=== PATIENT | female | born 1940 | race Caucasian/White ===

== ENCOUNTER 2017-08-23 09:33 | Emergency (ER) | payer MEDICARE, BC ==
[2017-08-23 09:37] VITALS: BP 130/61; TEMP 97.1
[2017-08-23] MEDS ORDERED: ABILIFY20 MG PO (10:47)
[2017-08-23] MEDS ORDERED: SINEMET 25/101 UDTAB PO (10:47)
[2017-08-23] MEDS ORDERED: JARDIANCE10 (10:48)
[2017-08-23] MEDS ORDERED: NEURONTIN100 MG/CAP PO (10:48)
[2017-08-23] MEDS ORDERED: PLAVIX 75MG TAB75 MG PO (10:48)
[2017-08-23] MEDS ORDERED: GLUCOPHAGE1000 MG PO (10:48)
[2017-08-23] MEDS ORDERED: ELDEPRYL 5MG5 MG/CAP PO (10:49)
[2017-08-23] MEDS ORDERED: LIPITOR 40MG TA40 MG PO (10:49)
[2017-08-23] MEDS ORDERED: K-DUR 10 MEQ T10 MEQ PO (10:49)
[2017-08-23] MEDS ORDERED: TOPAMAX200 MG PO (10:50)
[2017-08-23] MEDS ORDERED: SYNTHROID 0.0.025 MG PO (10:50)
[2017-08-23] MEDS ORDERED: LASIX 40MG TABL40 MG PO (10:50)
[2017-08-23 11:33] VITALS: PULSE 62
== END 2017-08-23 11:33 | disposition home or self-care (01) ==
LOC: COL.ER 09:33
DX: S83.91XA Sprain of unspecified site of right knee, initial encounter (principal); S43.401A Unspecified sprain of right shoulder joint, initial encounter; E11.9 Type 2 diabetes mellitus without complications; F31.9 Bipolar disorder, unspecified; G20 Parkinson's disease; E05.00 Thyrotoxicosis with diffuse goiter without thyrotoxic crisis or storm; Z87.891 Personal history of nicotine dependence; Z79.02 Long term (current) use of antithrombotics/antiplatelets; V48.4XXA Person boarding or alighting a car injured in noncollision transport accident, initial encounter; X50.0XXA Overexertion from strenuous movement or load, initial encounter; Y92.410 Unspecified street and highway as the place of occurrence of the external cause; Z79.84 Long term (current) use of oral hypoglycemic drugs

== ENCOUNTER 2019-01-29 02:56 | Emergency (ER) | payer MEDICARE, BC ==
[~2019-01-29] VITALS: Ht 147.3 cm; Wt 79.5 kg
[~2019-01-29 02:56] MED LIST: ABILIFY20 MG PO; ELDEPRYL 5MG5 MG/CAP PO; GLUCOPHAGE1000 MG PO; JARDIANCE10; K-DUR 10 MEQ T10 MEQ PO; LASIX 40MG TABL40 MG PO; LIPITOR 40MG TA40 MG PO; NEURONTIN100 MG/CAP PO; PLAVIX 75MG TAB75 MG PO; SINEMET 25/101 UDTAB PO; SYNTHROID 0.0.025 MG PO; TOPAMAX200 MG PO
[2019-01-29 02:57] VITALS: TEMP 97
[2019-01-29 03:59] LABS: BASO % 0.4 % (0.0-2.0); EOS # 0.2 (0.0-0.7); EOS % 4.4 % (0-4.0); GRAN # 2.6 (1.4-6.5); GRAN % 51.4 % (42.2-75.2); LYMPH # 1.7 (1.2-3.4); LYMPH % 34.6 % (20.0-51.0); MEAN CELL VOLUME 92 fl (80.0-100.0); MEAN CORPUSCULAR HEMOGLOBIN 30 pg (27.0-31.0); MEAN CORPUSCULAR HGB CONC 32 g/dl (33.0-37.0); MEAN PLATELET VOLUME 10.1 fl (7.4-10.4); MONO # 0.4 (0.1-0.6); MONO % 8.8 % (1.7-9.3); PLATELET COUNT 220 K/mm3 (130-400); RED BLOOD COUNT 4.01 M/mm3 (4.10-5.30); REDCELL DISTRIBUTION WIDTH-CV 12.8 % (11.5-14.5)
[2019-01-29 04:17] LABS: ALBUMIN 3.7 gm/dL (3.5-5.0); BILIRUBIN,TOTAL 0.2 mg/dL (0.0-1.0); CALCIUM 8.7 mg/dL (8.4-10.2); CREATININE, serum 1.21 (0.52-1.25); POTASSIUM 3.8 mmol/L (3.4-5.0); TOTAL PROTEIN 6.3 gm/dL (6.4-8.2)
[2019-01-29 04:29] LABS: C-REACTIVE PROTEIN 0.6 mg/dL (0.0-0.9)
[2019-01-29 04:35] LABS: ERYTHROCYTE SEDIMENTATION RATE 13 mm/hr (0-30)
[2019-01-29] MEDS ORDERED: WALKER MC (05:42)
[2019-01-29 05:45] VITALS: BP 112/78
[2019-01-29 06:55] VITALS: PULSE 87
== END 2019-01-29 06:55 | disposition home or self-care (01) ==
LOC: COL.ER 02:56
PROVIDERS: Emergency Medicine
DX: M25.552 Pain in left hip (principal); E11.9 Type 2 diabetes mellitus without complications; E78.5 Hyperlipidemia, unspecified; I10 Essential (primary) hypertension; F31.9 Bipolar disorder, unspecified; E03.9 Hypothyroidism, unspecified; G20 Parkinson's disease; Z79.02 Long term (current) use of antithrombotics/antiplatelets; Z79.84 Long term (current) use of oral hypoglycemic drugs; Z86.73 Personal history of transient ischemic attack (TIA), and cerebral infarction without residual deficits; Z87.891 Personal history of nicotine dependence; X50.1XXA Overexertion from prolonged static or awkward postures, initial encounter

== ENCOUNTER 2019-02-04 12:30 | Emergency (ER) | payer MEDICARE, BC ==
[~2019-02-04] VITALS: Ht 147.3 cm; Wt 79.5 kg
[~2019-02-04 12:30] MED LIST changes: +WALKER MC
[2019-02-04 12:43] VITALS: BP 144/96; TEMP 97.4
[2019-02-04 13:48] LABS: BASO % 0.2 % (0.0-2.0); EOS # 0.1 (0.0-0.7); EOS % 1.3 % (0-4.0); GRAN # 6.4 (1.4-6.5); GRAN % 77.4 % (42.2-75.2); HEMOGLOBIN 11.7 g/dl (12.5-16.0); LYMPH # 1.1 (1.2-3.4); LYMPH % 13.5 % (20.0-51.0); MEAN CELL VOLUME 91 fl (80.0-100.0); MEAN CORPUSCULAR HEMOGLOBIN 30 pg (27.0-31.0); MEAN CORPUSCULAR HGB CONC 33 g/dl (33.0-37.0); MONO # 0.6 (0.1-0.6); MONO % 7.2 % (1.7-9.3); PLATELET COUNT 186 K/mm3 (130-400); RED BLOOD COUNT 3.94 M/mm3 (4.10-5.30)
[2019-02-04 14:03] LABS: ALBUMIN 3.9 gm/dL (3.5-5.0); BILIRUBIN,TOTAL 0.4 mg/dL (0.0-1.0); C-REACTIVE PROTEIN 2.9 mg/dL (0.0-0.9); CALCIUM 8.9 mg/dL (8.4-10.2); CREATININE, serum 0.84 (0.52-1.25); POTASSIUM 4.1 mmol/L (3.4-5.0); TOTAL PROTEIN 6.7 gm/dL (6.4-8.2)
[2019-02-04] MEDS ORDERED: DOXYCYCLINE 10100 MG PO (15:05)
[2019-02-04] MEDS ORDERED: AMOXICILLIN 8751 TAB PO (15:05)
[2019-02-04 18:11] VITALS: PULSE 87
== END 2019-02-04 18:13 | disposition home or self-care (01) ==
LOC: COL.ER 12:30
PROVIDERS: Emergency Medicine
DX: L02.612 Cutaneous abscess of left foot (principal); G20 Parkinson's disease; E78.5 Hyperlipidemia, unspecified; E11.9 Type 2 diabetes mellitus without complications; F31.9 Bipolar disorder, unspecified; Z79.02 Long term (current) use of antithrombotics/antiplatelets; Z79.84 Long term (current) use of oral hypoglycemic drugs; Z23 Encounter for immunization
CPT/HCPCS: J1815

== ENCOUNTER 2019-02-10 06:00 | Emergency (ER) | payer MEDICARE, BC ==
[~2019-02-10] VITALS: Ht 147.3 cm; Wt 83.2 kg
[~2019-02-10 06:00] MED LIST changes: +AMOXICILLIN 8751 TAB PO; +DOXYCYCLINE 10100 MG PO
[2019-02-10 06:34] LABS: BASO % 0.3 % (0.0-2.0); EOS # 0.2 (0.0-0.7); EOS % 3.5 % (0-4.0); GRAN # 4.5 (1.4-6.5); GRAN % 65.9 % (42.2-75.2); HEMOGLOBIN 11.5 g/dl (12.5-16.0); LYMPH # 1.5 (1.2-3.4); LYMPH % 21.5 % (20.0-51.0); MEAN CELL VOLUME 91 fl (80.0-100.0); MEAN CORPUSCULAR HEMOGLOBIN 30 pg (27.0-31.0); MEAN CORPUSCULAR HGB CONC 33 g/dl (33.0-37.0); MEAN PLATELET VOLUME 9.9 fl (7.4-10.4); MONO # 0.6 (0.1-0.6); MONO % 8.5 % (1.7-9.3); PLATELET COUNT 209 K/mm3 (130-400); RED BLOOD COUNT 3.88 M/mm3 (4.10-5.30)
[2019-02-10 06:37] LABS: HEMATOCRIT 35.1 % (37.0-47.0)
[2019-02-10] MEDS ORDERED: GLUCOPHAGE1000 MG PO (06:42)
[2019-02-10] MEDS ORDERED: LASIX 40MG TABL40 MG PO (06:42)
[2019-02-10] MEDS ORDERED: K-TAB10 PO (06:53)
[2019-02-10 07:05] LABS: ALBUMIN 3.7 gm/dL (3.5-5.0); BILIRUBIN,TOTAL 0.5 mg/dL (0.0-1.0); CALCIUM 8.9 mg/dL (8.4-10.2); CREATININE, serum 0.91 (0.52-1.25); POTASSIUM 3.8 mmol/L (3.4-5.0); TOTAL PROTEIN 6.4 gm/dL (6.4-8.2)
[2019-02-10 09:30] VITALS: BP 106/68; PULSE 88; TEMP 98.2
== END 2019-02-10 09:30 | disposition home or self-care (01) ==
LOC: COL.ER 06:00
PROVIDERS: Emergency Medicine
DX: L02.612 Cutaneous abscess of left foot (principal); E11.9 Type 2 diabetes mellitus without complications; I10 Essential (primary) hypertension; F31.9 Bipolar disorder, unspecified; G20 Parkinson's disease; Z79.02 Long term (current) use of antithrombotics/antiplatelets; Z86.73 Personal history of transient ischemic attack (TIA), and cerebral infarction without residual deficits; Z79.84 Long term (current) use of oral hypoglycemic drugs
CPT/HCPCS: J1940

== ENCOUNTER 2019-02-20 09:15 | Inpatient (IN) | payer MEDICARE, BC, OTHER ==
[~2019-02-20] VITALS: Ht 147.3 cm; Wt 85.9 kg
[~2019-02-20 09:15] MED LIST changes: +K-TAB10 PO
[2019-02-20 10:00] LABS: BASO % 0.2 % (0.0-2.0); EOS # 0.1 (0.0-0.7); EOS % 2.7 % (0-4.0); GRAN # 3.6 (1.4-6.5); GRAN % 68.4 % (42.2-75.2); HEMOGLOBIN 11.3 g/dl (12.5-16.0); LYMPH # 1.1 (1.2-3.4); LYMPH % 20.8 % (20.0-51.0); MEAN CELL VOLUME 93 fl (80.0-100.0); MEAN CORPUSCULAR HEMOGLOBIN 30 pg (27.0-31.0); MEAN CORPUSCULAR HGB CONC 33 g/dl (33.0-37.0); MEAN PLATELET VOLUME 10.7 fl (7.4-10.4); MONO # 0.4 (0.1-0.6); MONO % 7.5 % (1.7-9.3); PLATELET COUNT 200 K/mm3 (130-400); RED BLOOD COUNT 3.76 M/mm3 (4.10-5.30); REDCELL DISTRIBUTION WIDTH-CV 12.5 % (11.5-14.5)
[2019-02-20 10:02] LABS: HEMATOCRIT 34.8 % (37.0-47.0)
[2019-02-20 10:10] LABS: ALANINE AMINOTRANSFERASE 11 U/L (9-52); ALBUMIN 3.2 gm/dL (3.5-5.0); ALKALINE PHOSPHATASE 138 U/L (50-136); ANION GAP 7 mmol/L (7-16); AST,SGOT 18 U/L (15-37); BILIRUBIN,TOTAL 0.2 mg/dL (0.0-1.0); BLOOD UREA NITROGEN 41 mg/dL (7-17); CALCIUM 8.7 mg/dL (8.4-10.2); CARBON DIOXIDE 25 mmol/L (22-30); CHLORIDE 103 mmol/L (98-107); CREATININE, serum 1.44 (0.52-1.25); LIPASE 227 U/L (23-300); MAGNESIUM 2.1 mg/dL (1.6-2.3); POTASSIUM 4.1 mmol/L (3.4-5.0); SODIUM 134 mmol/L (137-145); TOTAL PROTEIN 5.7 gm/dL (6.4-8.2)
[2019-02-20 10:16] LABS: GLUCOSE 571 mg/dL (74-106)
[2019-02-20 10:21] LABS: TROPONIN-I 0.012 ng/mL (0.000-0.035)
[2019-02-20 10:24] LABS: ACETONE,SERUM NEGATIVE
[2019-02-20 10:36] LABS: COLLECTION METHOD CLEAN CATCH
[2019-02-20 10:53] LABS: PH 7 (5-8); SQUAMOUS EPITHELIAL 0-2 /hpf; URINE APPEARANCE Clear; URINE BACTERIA None Seen /hpf; URINE BILIRUBIN Negative (NEGATIVE); URINE BLOOD Negative (NEGATIVE); URINE COLOR Straw; URINE GLUCOSE 3+ (NEGATIVE); URINE KETONE Negative (NEGATIVE); URINE LEUKOCYTE ESTERASE Negative (NEGATIVE); URINE NITRATE Negative (NEGATIVE); URINE PROTEIN(semi-quant) Negative (NEGATIVE); URINE RBC 0-2 /hpf; URINE UROBILINOGEN Negative (NEGATIVE)
[2019-02-20 11:55] LABS: ARTERIAL BLD GAS O2 SATURATION 94.9 % (92-100); ARTERIAL BLD GAS TCO2 CT 20.2; ARTERIAL BLOOD GAS HCO3 19.1 meq/L (22-26); ARTERIAL BLOOD GAS PCO2 36.2 mmHg (35-45); ARTERIAL BLOOD GAS PO2 78.1 mmHg (80-100); ARTERIAL BLOOD GAS pH 7.34 (7.35-7.45)
--- NOTE | 2019-02-20 13:27 | NUR ---
gaming worker met with patient and spoke with son, Mehran #[phone], and met with Mehran's girlfriend, Yeimi Carlita #[phone] to discuss home situation. Patient was moved to [place] by children about 1 month ago as she needed more care. Patient has called EMS multiple times to help her as she has fallen in her apartment. Patient states she does not utilize any outside services and struggles with having enough money to pay for food and medications. Patient states she lost several bottle of metformin. Patient has an appointmnent with Dr Baker on 03/02/19 to establish as a primary care provider. Son states they are all in agreement that patient requires a higher level of care, possibly assisted living. Worker provided copies of advance directives and Yeimi will discuss with family and patient to make decisions and complete documents with patient. Worker arranged for Catarino, financial counselor, to meet with patient and Yeimi to complete a Medicaid application this date. Physical therapy evaluated patient and patient will be admitted to the hospital. Worker spoke with Sylvia at [facility] and requested she evaluate patient for possible admission. Worker discussed options for skilled care as well. Worker collaborated with physician regarding the above information.
[2019-02-20 13:38] VITALS: BP 136/49; PULSE 99; TEMP 97.6
--- NOTE | 2019-02-20 13:41 | NUR ---
Pt up to Room 307. ASHKAN Mccallum in to complete initial.
--- NOTE | 2019-02-20 14:18 | NUR ---
Hospitalist aware of patient arrival to room, in to visit w/ patient at this time.
--- NOTE | 2019-02-20 15:58 | NUR ---
Pt admission, med rec, allergies, and pharmacy completed. Pt is A&O, 1 assist w/ walker in room. Breathing is even and unlabored, denies SOB. Denies dizziness at this time. Lung sounds clear, heart RRR. Radial pulses strong bilaterally. 2+ edema BLE. Bowel sounds present. Pt has redness/irritation on coccyx, Lt great toe erythema, BLE venous stasis, denies pain or tenderness in calf. Denies chest pain, numbness or tingling, palpitations, N/V/D. Tolerating diet well. LFA IV w/ NS @125 ml/hr running w/ no complications. No other concerns voiced at this time. Call light within reach. POC discussed w/ patient and family member.
[2019-02-20 17:46] VITALS: BP 137/60; PULSE 90; TEMP 98.1
--- NOTE | 2019-02-20 18:35 | NUR ---
Pt BS 374, Novolog administered per MAR sliding scale. pt sitting in bed eating dinner at this time. No other concerns voiced at this time. VORB from Hospitalist to decrease fluid rate to 75 ml/hr.
[2019-02-20 19:59] VITALS: BP 130/67; PULSE 88; TEMP 98.4
--- NOTE | 2019-02-20 20:00 | NUR ---
Bedside report with SALLY Silva. Pt does not have any complaints. Assessment complete. Vitals WNL. Call light within reach. Pt phone on bedside table. No further concerns at this time.
[2019-02-20 23:18] VITALS: BP 137/52; PULSE 90; TEMP 98.2
[2019-02-21 04:13] VITALS: BP 103/43; BP 123/61; PULSE 68; TEMP 97.8
[2019-02-21 06:06] LABS: BASO % 0.1 % (0.0-2.0); EOS # 0.1 (0.0-0.7); EOS % 0.9 % (0-4.0); GRAN # 5.2 (1.4-6.5); GRAN % 77.3 % (42.2-75.2); HEMOGLOBIN 10.6 g/dl (12.5-16.0); LYMPH # 1.1 (1.2-3.4); LYMPH % 15.8 % (20.0-51.0); MEAN CELL VOLUME 92 fl (80.0-100.0); MEAN CORPUSCULAR HEMOGLOBIN 30 pg (27.0-31.0); MEAN CORPUSCULAR HGB CONC 32 g/dl (33.0-37.0); MEAN PLATELET VOLUME 10.6 fl (7.4-10.4); MONO # 0.4 (0.1-0.6); MONO % 5.6 % (1.7-9.3); PLATELET COUNT 207 K/mm3 (130-400); RED BLOOD COUNT 3.58 M/mm3 (4.10-5.30); REDCELL DISTRIBUTION WIDTH-CV 12.7 % (11.5-14.5)
[2019-02-21 06:13] LABS: HEMATOCRIT 32.9 % (37.0-47.0)
[2019-02-21 06:15] LABS: ALBUMIN 2.9 gm/dL (3.5-5.0); BILIRUBIN,TOTAL 0.2 mg/dL (0.0-1.0); CALCIUM 8.3 mg/dL (8.4-10.2); CREATININE, serum 0.97 (0.52-1.25); POTASSIUM 4.1 mmol/L (3.4-5.0); TOTAL PROTEIN 5.4 gm/dL (6.4-8.2)
[2019-02-21 09:41] VITALS: BP 147/54; PULSE 82; TEMP 98.3
--- NOTE | 2019-02-21 11:07 | NUR ---
Pt assessment completed and charted. Pt laying in bed, assisted to bathroom, w/ walker. Pt has steady gait. Pt A&O, denies pain, dizziness, SOB, N/V/D, chest pain. BS have lowered. LFA IV flushes w/ no complications. Fluids dc'd. Pt tolerating food and liquids well. Pt on room air. Radial pulses strong bilaterally. BLE venous stasis. No other concerns voiced at this time. Call light within reach.
[2019-02-21 12:00] VITALS: BP 143/59; PULSE 93; TEMP 97.9
--- NOTE | 2019-02-21 13:35 | NUR ---
Pt doing well this afternoon, denies pain at this time. BS 304, SSI administered per JUN. Pt assisted to bathroom w/ walker. No other concerns voiced at this time.
[2019-02-21 17:15] VITALS: BP 133/60; PULSE 85; TEMP 98.9
--- NOTE | 2019-02-21 17:34 | NUR ---
Uneventful day, Pt administered SSI per MAR as needed per BS checks. Pt had large, hard BM, first in at least a week. No further needs expressed at this time.
[2019-02-21 20:20] VITALS: BP 138/72; PULSE 84; TEMP 97.8
--- NOTE | 2019-02-21 20:36 | NUR ---
Received report from SALLY Silva. Pt resting in bed upon arrival. Pt is eating dinner, but unsatisfied with it. Assessment complete. Pt VS WNL. No further concerns. Call light and phone within reach. Pt calls to use restroom, Bed alarm in place.
[2019-02-21 23:32] VITALS: BP 139/54; PULSE 95; TEMP 98.2
[2019-02-22 05:50] VITALS: BP 154/70; PULSE 92; TEMP 98
[2019-02-22 06:09] LABS: BASO % 0.1 % (0.0-2.0); EOS # 0.2 (0.0-0.7); EOS % 2.2 % (0-4.0); GRAN % 73.5 % (42.2-75.2); HEMOGLOBIN 11.8 g/dl (12.5-16.0); LYMPH # 1.2 (1.2-3.4); LYMPH % 17.6 % (20.0-51.0); MEAN CELL VOLUME 93 fl (80.0-100.0); MEAN CORPUSCULAR HEMOGLOBIN 30 pg (27.0-31.0); MEAN CORPUSCULAR HGB CONC 32 g/dl (33.0-37.0); MEAN PLATELET VOLUME 10.5 fl (7.4-10.4); MONO # 0.4 (0.1-0.6); MONO % 6.3 % (1.7-9.3); PLATELET COUNT 212 K/mm3 (130-400); RED BLOOD COUNT 3.96 M/mm3 (4.10-5.30); REDCELL DISTRIBUTION WIDTH-CV 12.8 % (11.5-14.5)
[2019-02-22 06:14] LABS: CALCIUM 8.6 mg/dL (8.4-10.2); CREATININE, serum 0.89 (0.52-1.25); POTASSIUM 4.2 mmol/L (3.4-5.0)
[2019-02-22 06:21] LABS: HEMATOCRIT 36.8 % (37.0-47.0)
[2019-02-22 08:08] VITALS: BP 175/66; PULSE 87; TEMP 97.3
--- NOTE | 2019-02-22 08:37 | NUR ---
Pt called for assistance to bathroom, assist X1 w/ walker. Assessment completed. Morning medications administered per JUN. Pt A&O, lung sounds clear, heart RRR, bowel sounds present. Pt rating pain at 8/10, states she didn't sleep well, pain is located in neck. Requested pain medication overnight, offered tylenol, refused, states she can only take ibuprofren. Will notify hospitalist this morning about pain medication. BLE 1+, venous stasis present. BP elevated this morning, will contact hospitalist about POC. No other concerns voiced at this time.
--- NOTE | 2019-02-22 08:46 | NUR ---
Pt up walking with therapy, using walker and standby assist with therapist, gait steady.
[2019-02-22 11:14] VITALS: BP 147/76; PULSE 97; TEMP 98.5
[2019-02-22 15:56] VITALS: BP 156/53; PULSE 91; TEMP 97.5
--- NOTE | 2019-02-22 17:15 | NUR ---
Pt sitting in chair eating dinner. Bedside report given by SALLY Silva. Pt assessment complete. VS WNL. Pt talking about [facility], and being able to go there sometime soon. Pt returned to bed before RN left room. Call light and personal phone within reach. No further concerns at this time.
[2019-02-22 19:53] VITALS: BP 149/52; PULSE 92; TEMP 98.5
[2019-02-22 22:58] VITALS: BP 137/71; PULSE 91; TEMP 97.4
--- NOTE | 2019-02-23 01:31 | NUR ---
PT IS HAVING AN UNEVENTFUL NIGHT. FINDING IT DIFFICULT TO SLEEP. WORRIED ABOUT THE COMING WEEK.
[2019-02-23 03:53] VITALS: BP 140/53; PULSE 87; TEMP 98.7
[2019-02-23 06:00] LABS: BASO % 0.4 % (0.0-2.0); EOS # 0.2 (0.0-0.7); EOS % 3.5 % (0-4.0); GRAN # 3.6 (1.4-6.5); GRAN % 64.7 % (42.2-75.2); HEMOGLOBIN 11.2 g/dl (12.5-16.0); LYMPH # 1.3 (1.2-3.4); LYMPH % 23.5 % (20.0-51.0); MEAN CELL VOLUME 91 fl (80.0-100.0); MEAN CORPUSCULAR HEMOGLOBIN 30 pg (27.0-31.0); MEAN CORPUSCULAR HGB CONC 33 g/dl (33.0-37.0); MEAN PLATELET VOLUME 10.5 fl (7.4-10.4); MONO # 0.4 (0.1-0.6); MONO % 7.5 % (1.7-9.3); PLATELET COUNT 195 K/mm3 (130-400); RED BLOOD COUNT 3.72 M/mm3 (4.10-5.30); REDCELL DISTRIBUTION WIDTH-CV 12.7 % (11.5-14.5)
[2019-02-23 06:23] LABS: CALCIUM 8.6 mg/dL (8.4-10.2); CREATININE, serum 1.03 (0.52-1.25); POTASSIUM 4.1 mmol/L (3.4-5.0)
--- NOTE | 2019-02-23 06:29 | NUR ---
Pt concerned about her care. Assured her the BARREL MARKER was at the glucometer and not a phone. Became agitated during toileting stating that her legs were wet when they were not. Cleaned up pt to ensure that she felt clean. Pt is steady and stable while ambulating. No other concerns. Call light within reach.
--- NOTE | 2019-02-23 07:26 | NUR ---
Report given to SALLY Brantley. Pt laying in bed, and pleasant during bedside report. [facility] consulted and pt is agreeable. No further concerns.
[2019-02-23 07:57] VITALS: BP 132/77; PULSE 94; TEMP 98.3
--- NOTE | 2019-02-23 08:50 | NUR ---
Pt assessment complete. Pt sitting up in chair upon entry, pt is A/O x4. Her breathing is even and unlabored on RA. Pt denies SOB. No pain reported. Pt reports swelling to BLE, reports she has not been getting her lasix. Pt denies N/V, ate breakfast without issues. Pt refusing to let staff place heparin in her abdomen, she reports last time she recieved "lasix in her belly she had a stroke". She absolutely refuses to have anything put in her abdomen. Explained to the patient this is to help prevent a stroke, she said "put it somewhere else or I'm going without". Pt reports she is ready to leave the facility or go to rehab. Refuses to have her bed changed this morning. No needs at this time. Call light within reach.
[2019-02-23 11:11] VITALS: BP 118/62; PULSE 86; TEMP 98.2
--- NOTE | 2019-02-23 14:44 | NUR ---
C Engineer attended clinical rounds with the team. It was discussed with patient that [facility] cannot accept her referral as she is too high functioning. Hospitalist discussed with patient option for fpc facility placement upon discharge and patient was in agreeance. SW met with patient to complete patient choice form. Patient selected [facility] as first preference, [facility] as second preference, and provided signature. SW faxed referrals to both [facility] and [facility]. MC called patient's son, Mehran to provide update. MC spoke with Sesar at [facility] who has met with patient and is reviewing referral. MC contacted Charlene at [facility] who advised she would review referral and follow up. SW to continue to follow as patient could discharge today if placement is found.
[2019-02-23 15:36] VITALS: BP 132/46; PULSE 82; TEMP 97.6
--- NOTE | 2019-02-23 15:50 | NUR ---
Initial visit; Patient thanked Lead Cargo Mover for looking in on her and introduced Lead Cargo Mover to her daughter and grand-daughter. Patient very happy that her Aws Software Development Engineer had visited and thanked Lead Cargo Mover for keeping her in her prayers.
[2019-02-23] MEDS ORDERED: SENNA-S 50 MG-81 TAB PO (16:15)
--- NOTE | 2019-02-23 16:39 | NUR ---
Stockholder was notified by MC, Radha Robb that [facility] cannot accept. MC spoke with Sesar at [facility] who advised he can accept and transportation would be arranged for 4:30pm. MC notified patient, patient's son Mehran, and patient's RN Vani. MC faxed discharge orders to [facility]. No additional concerns at this time.
--- NOTE | 2019-02-23 16:43 | NUR ---
Pt left for [facility] at this time. IV to LAC dc'd
--- NOTE | 2019-02-23 17:05 | NUR ---
Report given to [facility], pt left facility. IV to LAC d/c
== END 2019-02-23 17:07 | DRG 638 ==
LOC: COL.ER 09:22 → MEDICAL 12:22 → EDBEDREQ 12:47 → MEDICAL 02-23 17:07
PROVIDERS: Emergency Medicine; Physician Assistant; ADMIT Student in an Organized Health Care Education/Training Program
DX: E11.65 Type 2 diabetes mellitus with hyperglycemia (principal); E87.2 Acidosis; N17.9 Acute kidney failure, unspecified; E11.22 Type 2 diabetes mellitus with diabetic chronic kidney disease; F31.9 Bipolar disorder, unspecified; G20 Parkinson's disease; E78.5 Hyperlipidemia, unspecified; E03.9 Hypothyroidism, unspecified; E11.42 Type 2 diabetes mellitus with diabetic polyneuropathy; N18.2 Chronic kidney disease, stage 2 (mild); K59.00 Constipation, unspecified; D64.9 Anemia, unspecified; E86.0 Dehydration; Z79.84 Long term (current) use of oral hypoglycemic drugs; Z86.73 Personal history of transient ischemic attack (TIA), and cerebral infarction without residual deficits
CPT/HCPCS: 99223-AI; 99232-AI; 99239; J1644; J1815; J7030; J7040

== ENCOUNTER → 2019-03-18 | Outpatient (CLI) | payer MEDICARE, BC ==
[~2019-03-18] MED LIST changes: +SENNA-S 50 MG-81 TAB PO
== END ==
LOC: COL.VAS 09:27
DX: I82.409 Acute embolism and thrombosis of unspecified deep veins of unspecified lower extremity (principal)

== ENCOUNTER 2019-03-31 19:37 | Emergency (ER) | payer MEDICARE, BC ==
[~2019-03-31] VITALS: Ht 147.3 cm; Wt 80.9 kg
[2019-03-31 19:39] VITALS: BP 135/79; TEMP 97.5
[2019-03-31 22:58] VITALS: PULSE 92
== END 2019-03-31 22:58 | disposition home or self-care (01) ==
LOC: COL.ER 19:37
DX: S20.212A Contusion of left front wall of thorax, initial encounter (principal); S40.012A Contusion of left shoulder, initial encounter; S70.02XA Contusion of left hip, initial encounter; G20 Parkinson's disease; E11.9 Type 2 diabetes mellitus without complications; I25.10 Atherosclerotic heart disease of native coronary artery without angina pectoris; Z86.73 Personal history of transient ischemic attack (TIA), and cerebral infarction without residual deficits; Z79.02 Long term (current) use of antithrombotics/antiplatelets; W01.0XXA Fall on same level from slipping, tripping and stumbling without subsequent striking against object, initial encounter

== ENCOUNTER 2019-04-13 16:27 | Emergency (ER) | payer MEDICARE, BC ==
[~2019-04-13] VITALS: Ht 147.3 cm; Wt 82.3 kg
[2019-04-13 16:29] VITALS: BP 136/40; PULSE 82; TEMP 97.8
[2019-04-13 17:46] LABS: BASO % 0.3 % (0.0-2.0); EOS # 0.2 (0.0-0.7); EOS % 3.2 % (0-4.0); GRAN # 4.7 (1.4-6.5); GRAN % 72.4 % (42.2-75.2); HEMOGLOBIN 11.8 g/dl (12.5-16.0); LYMPH % 15.6 % (20.0-51.0); MEAN CELL VOLUME 92 fl (80.0-100.0); MEAN CORPUSCULAR HEMOGLOBIN 30 pg (27.0-31.0); MEAN CORPUSCULAR HGB CONC 32 g/dl (33.0-37.0); MEAN PLATELET VOLUME 9.9 fl (7.4-10.4); MONO # 0.5 (0.1-0.6); MONO % 8.2 % (1.7-9.3); PLATELET COUNT 190 K/mm3 (130-400); REDCELL DISTRIBUTION WIDTH-CV 13.1 % (11.5-14.5)
[2019-04-13 17:52] LABS: HEMATOCRIT 36.7 % (37.0-47.0)
[2019-04-13 17:53] LABS: ALANINE AMINOTRANSFERASE 10 U/L (9-52); ALKALINE PHOSPHATASE 120 U/L (50-136); ANION GAP 9 mmol/L (7-16); AST,SGOT 19 U/L (15-37); BILIRUBIN,TOTAL 0.4 mg/dL (0.0-1.0); BLOOD UREA NITROGEN 24 mg/dL (7-17); C-REACTIVE PROTEIN 4.1 mg/dL (0.0-0.9); CALCIUM 8.7 mg/dL (8.4-10.2); CARBON DIOXIDE 23 mmol/L (22-30); CHLORIDE 106 mmol/L (98-107); CREATININE, serum 1.13 (0.52-1.25); GLUCOSE 317 mg/dL (74-106); SODIUM 138 mmol/L (137-145); TOTAL PROTEIN 6.9 gm/dL (6.4-8.2)
[2019-04-13 18:14] LABS: TROPONIN-I < 0.012 ng/mL (0.000-0.035)
[2019-04-13] MEDS ORDERED: ZITHROMAX 250M250 MG PO (18:32)
== END 2019-04-13 20:21 | disposition home or self-care (01) ==
LOC: COL.ER 16:27
PROVIDERS: Emergency Medicine
DX: J20.9 Acute bronchitis, unspecified (principal); E11.65 Type 2 diabetes mellitus with hyperglycemia; F31.9 Bipolar disorder, unspecified; G20 Parkinson's disease; E78.00 Pure hypercholesterolemia, unspecified; Z79.02 Long term (current) use of antithrombotics/antiplatelets; Z79.84 Long term (current) use of oral hypoglycemic drugs
CPT/HCPCS: J1815

== ENCOUNTER 2019-08-17 09:53 | Emergency (ER) | payer MEDICARE, BC ==
[~2019-08-17] VITALS: Ht 152.4 cm; Wt 82.8 kg
[~2019-08-17 09:53] MED LIST changes: +ZITHROMAX 250M250 MG PO
[2019-08-17 09:56] VITALS: TEMP 97.8
[2019-08-17 10:22] LABS: BASO % 0.2 % (0.0-2.0); EOS # 0.1 (0.0-0.7); EOS % 2.4 % (0-4.0); GRAN # 4.1 (1.4-6.5); GRAN % 69.7 % (42.2-75.2); HEMATOCRIT 41.1 % (37.0-47.0); HEMOGLOBIN 13.7 g/dl (12.5-16.0); LYMPH # 1.4 (1.2-3.4); LYMPH % 22.8 % (20.0-51.0); MEAN CELL VOLUME 91 fl (80.0-100.0); MEAN CORPUSCULAR HEMOGLOBIN 30 pg (27.0-31.0); MEAN CORPUSCULAR HGB CONC 33 g/dl (33.0-37.0); MEAN PLATELET VOLUME 10.2 fl (7.4-10.4); MONO # 0.3 (0.1-0.6); MONO % 4.4 % (1.7-9.3); PLATELET COUNT 212 K/mm3 (130-400); RED BLOOD COUNT 4.52 M/mm3 (4.10-5.30)
[2019-08-17 10:31] LABS: ALANINE AMINOTRANSFERASE 9 U/L (4-34); ALBUMIN 4.6 gm/dL (3.5-5.0); ALKALINE PHOSPHATASE 106 U/L (50-136); ANION GAP 13 mmol/L (7-16); AST,SGOT 22 U/L (15-37); BILIRUBIN,TOTAL 0.4 mg/dL (0.0-1.0); BLOOD UREA NITROGEN 40 mg/dL (7-17); CALCIUM 9.3 mg/dL (8.4-10.2); CARBON DIOXIDE 24 mmol/L (22-30); CHLORIDE 99 mmol/L (98-107); CREATININE, serum 1.31 (0.52-1.25); GLUCOSE 371 mg/dL (74-106); POTASSIUM 4.1 mmol/L (3.4-5.0); SODIUM 136 mmol/L (137-145); TOTAL PROTEIN 7.4 gm/dL (6.4-8.2)
[2019-08-17 10:44] LABS: C-REACTIVE PROTEIN < 0.5 mg/dL (0.0-0.9)
[2019-08-17 11:10] LABS: COLLECTION METHOD CLEAN CATCH
[2019-08-17 11:30] VITALS: BP 134/58; PULSE 73
[2019-08-17 11:38] LABS: MUCOUS Present /lpf; PH 6 (5-8); SQUAMOUS EPITHELIAL None Seen /hpf; URINE APPEARANCE Clear; URINE BACTERIA Moderate /hpf; URINE BILIRUBIN Negative (NEGATIVE); URINE BLOOD Negative (NEGATIVE); URINE COLOR Straw; URINE GLUCOSE 3+ (NEGATIVE); URINE KETONE Negative (NEGATIVE); URINE LEUKOCYTE ESTERASE Negative (NEGATIVE); URINE NITRATE Negative (NEGATIVE); URINE PROTEIN(semi-quant) Negative (NEGATIVE); URINE RBC 0-2 /hpf; URINE UROBILINOGEN Negative (NEGATIVE)
== END 2019-08-17 11:25 | disposition home or self-care (01) ==
LOC: COL.ER 09:53
PROVIDERS: Family Medicine
DX: E86.0 Dehydration (principal); E11.9 Type 2 diabetes mellitus without complications; I10 Essential (primary) hypertension; Z79.84 Long term (current) use of oral hypoglycemic drugs; Z79.02 Long term (current) use of antithrombotics/antiplatelets
CPT/HCPCS: J2405; J7120

== ENCOUNTER 2019-08-28 15:05 | Emergency (ER) | payer MEDICARE, BC ==
[~2019-08-28] VITALS: Ht 152.4 cm; Wt 82.6 kg
[2019-08-28 15:06] VITALS: TEMP 97.5
[2019-08-28 16:48] LABS: BASO % 0.2 % (0.0-2.0); EOS # 0.2 (0.0-0.7); EOS % 3.5 % (0-4.0); GRAN # 2.5 (1.4-6.5); GRAN % 50.9 % (42.2-75.2); HEMATOCRIT 38.6 % (37.0-47.0); LYMPH # 1.8 (1.2-3.4); LYMPH % 37.7 % (20.0-51.0); MEAN CELL VOLUME 91 fl (80.0-100.0); MEAN CORPUSCULAR HEMOGLOBIN 31 pg (27.0-31.0); MEAN CORPUSCULAR HGB CONC 34 g/dl (33.0-37.0); MEAN PLATELET VOLUME 10.3 fl (7.4-10.4); MONO # 0.4 (0.1-0.6); MONO % 7.5 % (1.7-9.3); PLATELET COUNT 180 K/mm3 (130-400); RED BLOOD COUNT 4.24 M/mm3 (4.10-5.30)
[2019-08-28 17:02] LABS: ALANINE AMINOTRANSFERASE 8 U/L (4-34); ALKALINE PHOSPHATASE 106 U/L (50-136); ANION GAP 10 mmol/L (7-16); AST,SGOT 22 U/L (15-37); BILIRUBIN,TOTAL 0.5 mg/dL (0.0-1.0); BLOOD UREA NITROGEN 38 mg/dL (7-17); C-REACTIVE PROTEIN 0.5 mg/dL (0.0-0.9); CALCIUM 8.8 mg/dL (8.4-10.2); CARBON DIOXIDE 23 mmol/L (22-30); CHLORIDE 101 mmol/L (98-107); CREATININE, serum 1.27 (0.52-1.25); GLUCOSE 214 mg/dL (74-106); POTASSIUM 4.2 mmol/L (3.4-5.0); SODIUM 134 mmol/L (137-145); TOTAL PROTEIN 6.6 gm/dL (6.4-8.2)
[2019-08-28 17:14] LABS: TROPONIN-I < 0.012 ng/mL (0.000-0.035)
[2019-08-28 18:13] VITALS: BP 131/82; PULSE 74
== END 2019-08-28 18:05 | disposition home or self-care (01) ==
LOC: COL.ER 15:05
PROVIDERS: Family Medicine
DX: E86.0 Dehydration (principal); I11.0 Hypertensive heart disease with heart failure; I50.9 Heart failure, unspecified; E11.9 Type 2 diabetes mellitus without complications; G20 Parkinson's disease; Z79.02 Long term (current) use of antithrombotics/antiplatelets; Z79.84 Long term (current) use of oral hypoglycemic drugs
CPT/HCPCS: J2405; J7120

== ENCOUNTER 2019-11-03 23:14 | Emergency (ER) | payer MEDICARE, BC ==
[~2019-11-03] VITALS: Ht 152.4 cm; Wt 83.2 kg
[~2019-11-03 23:14] MED LIST changes: -JARDIANCE10; +JARDIANCE10 PO
[2019-11-03 23:15] VITALS: BP 150/67; TEMP 98
[2019-11-04 00:24] LABS: BASO % 0.4 % (0.0-2.0); EOS # 0.2 (0.0-0.7); EOS % 4.1 % (0-4.0); GRAN # 3.3 (1.4-6.5); GRAN % 59.4 % (42.2-75.2); HEMATOCRIT 41.3 % (37.0-47.0); HEMOGLOBIN 13.7 g/dl (12.5-16.0); LYMPH # 1.6 (1.2-3.4); LYMPH % 28.9 % (20.0-51.0); MEAN CELL VOLUME 92 fl (80.0-100.0); MEAN CORPUSCULAR HEMOGLOBIN 30 pg (27.0-31.0); MEAN CORPUSCULAR HGB CONC 33 g/dl (33.0-37.0); MEAN PLATELET VOLUME 10.4 fl (7.4-10.4); MONO # 0.4 (0.1-0.6); PLATELET COUNT 192 K/mm3 (130-400); REDCELL DISTRIBUTION WIDTH-CV 12.4 % (11.5-14.5)
[2019-11-04 00:33] LABS: ALBUMIN 3.6 gm/dL (3.5-5.0); BILIRUBIN,TOTAL 0.6 mg/dL (0.0-1.0); CALCIUM 8.8 mg/dL (8.4-10.2); CREATININE, serum 1.04 (0.52-1.25); POTASSIUM 4.1 mmol/L (3.4-5.0); TOTAL PROTEIN 6.4 gm/dL (6.4-8.2)
[2019-11-04 02:29] VITALS: PULSE 73
[2019-11-05] MEDS ORDERED: ZYRTEC 10MG10 MG PO (09:40)
== END 2019-11-04 02:33 | disposition home or self-care (01) ==
LOC: COL.ER 23:14
PROVIDERS: Emergency Medicine
DX: S90.122A Contusion of left lesser toe(s) without damage to nail, initial encounter (principal); S39.012A Strain of muscle, fascia and tendon of lower back, initial encounter; E11.65 Type 2 diabetes mellitus with hyperglycemia; F31.9 Bipolar disorder, unspecified; G20 Parkinson's disease; I10 Essential (primary) hypertension; Z88.8 Allergy status to other drugs, medicaments and biological substances; Z79.84 Long term (current) use of oral hypoglycemic drugs; Z79.02 Long term (current) use of antithrombotics/antiplatelets; Z87.891 Personal history of nicotine dependence; Z86.73 Personal history of transient ischemic attack (TIA), and cerebral infarction without residual deficits; Z91.012 Allergy to eggs; Z91.018 Allergy to other foods; W18.49XA Other slipping, tripping and stumbling without falling, initial encounter; Y92.009 Unspecified place in unspecified non-institutional (private) residence as the place of occurrence of the external cause

== ENCOUNTER 2019-11-05 09:12 | Outpatient (CLI) | payer MEDICARE, BC ==
[~2019-11-05] VITALS: Ht 152.4 cm; Wt 84.3 kg
[2019-11-05] MEDS ORDERED: ZYRTEC 10MG10 MG PO (09:40)
[2019-11-05 09:51] LABS: HEMATOCRIT 42.3 % (37.0-47.0); HEMOGLOBIN 14.2 g/dl (12.5-16.0); MEAN CELL VOLUME 90 fl (80.0-100.0); MEAN CORPUSCULAR HEMOGLOBIN 30 pg (27.0-31.0); MEAN CORPUSCULAR HGB CONC 34 g/dl (33.0-37.0); MEAN PLATELET VOLUME 10.2 fl (7.4-10.4); PLATELET COUNT 205 K/mm3 (130-400); RED BLOOD COUNT 4.68 M/mm3 (4.10-5.30); REDCELL DISTRIBUTION WIDTH-CV 12.4 % (11.5-14.5)
[2019-11-05 09:57] LABS: ALBUMIN 4.2 gm/dL (3.5-5.0); BILIRUBIN,TOTAL 0.5 mg/dL (0.0-1.0); CALCIUM 9.1 mg/dL (8.4-10.2); CREATININE, serum 1.2 (0.52-1.25); MAGNESIUM 2.2 mg/dL (1.6-2.3); POTASSIUM 4.2 mmol/L (3.4-5.0); TOTAL PROTEIN 7.2 gm/dL (6.4-8.2)
[2019-11-05 10:13] VITALS: BP 135/49; PULSE 101; TEMP 97.9
== END 2019-11-05 12:00 | disposition home or self-care (01) ==
LOC: COL.CAR 09:12
PROVIDERS: Internal Medicine Adult Congenital Heart Disease
DX: I48.92 Unspecified atrial flutter (principal); I27.20 Pulmonary hypertension, unspecified; I08.3 Combined rheumatic disorders of mitral, aortic and tricuspid valves; E11.65 Type 2 diabetes mellitus with hyperglycemia; G20 Parkinson's disease; Z86.73 Personal history of transient ischemic attack (TIA), and cerebral infarction without residual deficits; I87.2 Venous insufficiency (chronic) (peripheral); Z87.891 Personal history of nicotine dependence; Z79.02 Long term (current) use of antithrombotics/antiplatelets; Z79.84 Long term (current) use of oral hypoglycemic drugs

== ENCOUNTER 2019-11-10 02:58 | Emergency (ER) | payer MEDICARE, BC ==
[~2019-11-10] VITALS: Ht 152.4 cm; Wt 82.8 kg
[~2019-11-10 02:58] MED LIST changes: +ZYRTEC 10MG10 MG PO
[2019-11-10 02:59] VITALS: TEMP 97.7
[2019-11-10 03:27] LABS: BASO % 0.2 % (0.0-2.0); EOS # 0.2 (0.0-0.7); EOS % 4.4 % (0-4.0); GRAN # 2.6 (1.4-6.5); GRAN % 55.5 % (42.2-75.2); HEMATOCRIT 39.8 % (37.0-47.0); HEMOGLOBIN 13.4 g/dl (12.5-16.0); LYMPH # 1.6 (1.2-3.4); LYMPH % 32.8 % (20.0-51.0); MEAN CELL VOLUME 91 fl (80.0-100.0); MEAN CORPUSCULAR HEMOGLOBIN 31 pg (27.0-31.0); MEAN CORPUSCULAR HGB CONC 34 g/dl (33.0-37.0); MEAN PLATELET VOLUME 10.1 fl (7.4-10.4); MONO # 0.3 (0.1-0.6); MONO % 6.9 % (1.7-9.3); PLATELET COUNT 194 K/mm3 (130-400); RED BLOOD COUNT 4.39 M/mm3 (4.10-5.30); REDCELL DISTRIBUTION WIDTH-CV 12.3 % (11.5-14.5)
[2019-11-10 03:32] LABS: INR 0.9 (0.8-3.0)
[2019-11-10 03:37] LABS: ALANINE AMINOTRANSFERASE 7 U/L (4-34); ALBUMIN 3.8 gm/dL (3.5-5.0); ALKALINE PHOSPHATASE 101 U/L (50-136); ANION GAP 7 mmol/L (7-16); AST,SGOT 18 U/L (15-37); BILIRUBIN,TOTAL 0.5 mg/dL (0.0-1.0); BLOOD UREA NITROGEN 29 mg/dL (7-17); CALCIUM 8.8 mg/dL (8.4-10.2); CARBON DIOXIDE 22 mmol/L (22-30); CHLORIDE 104 mmol/L (98-107); GLUCOSE 347 mg/dL (74-106); POTASSIUM 4.5 mmol/L (3.4-5.0); SODIUM 134 mmol/L (137-145); TOTAL PROTEIN 6.5 gm/dL (6.4-8.2)
[2019-11-10 03:48] LABS: TROPONIN-I < 0.012 ng/mL (0.000-0.035)
[2019-11-10 09:50] VITALS: BP 168/71; PULSE 62
--- NOTE | 2019-11-10 10:58 | NUR ---
Digital Imaging Technician received consult for patient to discuss home health services. SW met with patient who advised her primary care physician is Dr. North and her emergency contact is her son, Mehran Rose (ph#[phone]). Patient reports she currently receives PT/OT/ST/Nursing from [facility] but they are discharging her because she likes to drive her care around. Per ED Physician documentation, patient is not interested in any assisted living. Patient tells SW that [place] is a money pit. Patient states she has had some issues paying her rent but that she is working with SILVER Gomes Digital Imaging Technician. Patient reports she has exhausted resources at [facility] and [employer]. Patient states her pentecostal, [facility] has also assisted her in paying rent. Patient states she plans on returning home today as soon as a ride is arranged. MC collaborated with RNStacie who advised patient's son will be picking her up. MC contacted Anahy at [facility] who advised that patient is being discharged on Saturday as she no longer meets requirements for home bound status. Anahy advised that patient's apartment is a disaster and that patient has pads on her furniture that she will be incontinent on instead of wearing a brief. Anahy also advised that patient cannot manage her finances and recently purchased a new car instead of paying her rent and bills. SW contacted SILVER Gomes Digital Imaging Technician (ph#[phone]) who has an open case with patient and advised she will be out to visit patient today or tomorrow. MC contacted Megan Digital Imaging Technician at [facility] who reports she made an APS report in hopes that a payee would be assigned to patient as she cannot manage her money. Megan advised that patient will spend all her monthly income the first couple days on things like purses or the new car she recently bought. MC provided Megan with Mireya's phone number. Megan advised that she has referred [facility] to [facility] [place]. MC made report to APS about above concerns (intake#[id number]). No additional needs at this time.
== END 2019-11-10 09:50 | disposition home or self-care (01) ==
LOC: COL.ER 02:58
PROVIDERS: Emergency Medicine
DX: S70.02XA Contusion of left hip, initial encounter (principal); S00.83XA Contusion of other part of head, initial encounter; S40.011A Contusion of right shoulder, initial encounter; R53.81 Other malaise; E11.9 Type 2 diabetes mellitus without complications; E78.5 Hyperlipidemia, unspecified; F32.9 Major depressive disorder, single episode, unspecified; R40.2410 Glasgow coma scale score 13-15, unspecified time; Z79.84 Long term (current) use of oral hypoglycemic drugs; Z79.02 Long term (current) use of antithrombotics/antiplatelets; Z86.73 Personal history of transient ischemic attack (TIA), and cerebral infarction without residual deficits; Z88.8 Allergy status to other drugs, medicaments and biological substances; Z91.81 History of falling; W19.XXXA Unspecified fall, initial encounter; Y92.009 Unspecified place in unspecified non-institutional (private) residence as the place of occurrence of the external cause
CPT/HCPCS: J7040

== ENCOUNTER → 2019-11-19 | Outpatient (CLI) | payer MEDICARE, BC | LOC: BHSO 13:00 | DX: F31.81 Bipolar II disorder (principal) ==

== ENCOUNTER 2019-12-10 13:57 | Emergency (ER) | payer MEDICARE, BC ==
[~2019-12-10] VITALS: Ht 152.4 cm; Wt 79.5 kg
[2019-12-10 13:59] VITALS: TEMP 96.7
[2019-12-10 14:50] LABS: BASO % 0.2 % (0.0-2.0); EOS # 0.1 (0.0-0.7); EOS % 2.1 % (0-4.0); GRAN # 3.7 (1.4-6.5); HEMATOCRIT 39.2 % (37.0-47.0); HEMOGLOBIN 13.4 g/dl (12.5-16.0); MEAN CELL VOLUME 89 fl (80.0-100.0); MEAN CORPUSCULAR HEMOGLOBIN 30 pg (27.0-31.0); MEAN CORPUSCULAR HGB CONC 34 g/dl (33.0-37.0); MEAN PLATELET VOLUME 10.1 fl (7.4-10.4); MONO # 0.3 (0.1-0.6); MONO % 6.5 % (1.7-9.3); PLATELET COUNT 193 K/mm3 (130-400); RED BLOOD COUNT 4.43 M/mm3 (4.10-5.30); REDCELL DISTRIBUTION WIDTH-CV 12.5 % (11.5-14.5)
[2019-12-10 15:04] LABS: COLLECTION METHOD CLEAN CATCH
[2019-12-10 15:10] LABS: PH 5 (5-8); SQUAMOUS EPITHELIAL 0-2 /hpf; URINE APPEARANCE Clear; URINE BACTERIA Rare /hpf; URINE BILIRUBIN Negative (NEGATIVE); URINE BLOOD Negative (NEGATIVE); URINE COLOR Straw; URINE GLUCOSE 3+ (NEGATIVE); URINE KETONE Negative (NEGATIVE); URINE LEUKOCYTE ESTERASE Negative (NEGATIVE); URINE NITRATE Negative (NEGATIVE); URINE PROTEIN(semi-quant) Negative (NEGATIVE); URINE RBC 0-2 /hpf; URINE UROBILINOGEN Negative (NEGATIVE)
[2019-12-10 15:34] LABS: ALBUMIN 3.6 gm/dL (3.5-5.0); BILIRUBIN,TOTAL 0.6 mg/dL (0.0-1.0); CALCIUM 8.3 mg/dL (8.4-10.2); CREATININE, serum 1.25 (0.52-1.25); POTASSIUM 3.6 mmol/L (3.4-5.0); TOTAL PROTEIN 6.4 gm/dL (6.4-8.2)
[2019-12-10 16:12] VITALS: BP 132/63; PULSE 73
== END 2019-12-10 16:15 | disposition home or self-care (01) ==
LOC: COL.ER 13:57
PROVIDERS: Nurse Practitioner Primary Care
DX: R42 Dizziness and giddiness (principal); E11.9 Type 2 diabetes mellitus without complications; F31.9 Bipolar disorder, unspecified; E78.5 Hyperlipidemia, unspecified; G20 Parkinson's disease; Z87.891 Personal history of nicotine dependence; Z86.73 Personal history of transient ischemic attack (TIA), and cerebral infarction without residual deficits; Z79.84 Long term (current) use of oral hypoglycemic drugs; Z79.899 Other long term (current) drug therapy
CPT/HCPCS: J7030

== ENCOUNTER 2019-12-13 15:39 | Emergency (ER) | payer MEDICARE, BC ==
[~2019-12-13] VITALS: Ht 152.4 cm; Wt 78.6 kg
[2019-12-13 15:40] VITALS: TEMP 99.5
[2019-12-13] MEDS ORDERED: ANTIVERT 25MG25 MG PO (18:08)
[2019-12-13 19:07] VITALS: BP 116/73; PULSE 82
== END 2019-12-13 19:08 | disposition home or self-care (01) ==
LOC: COL.ER 15:39
DX: H61.21 Impacted cerumen, right ear (principal); R11.0 Nausea; Z79.84 Long term (current) use of oral hypoglycemic drugs; Z79.02 Long term (current) use of antithrombotics/antiplatelets

== ENCOUNTER 2019-12-23 16:15 | Inpatient (IN) | payer MEDICARE, BC ==
[~2019-12-23] VITALS: Ht 152.4 cm; Wt 78.0 kg
[~2019-12-23 16:15] MED LIST changes: +ANTIVERT 25MG25 MG PO; -SYNTHROID 0.0.025 MG PO; +SYNTHROID0.125 MG/T PO
[2019-12-23 16:46] VITALS: BP 150/70; PULSE 62
[2019-12-23] MEDS ORDERED: LASIX 40MG TABL40 MG PO ×2 (16:58→20:24)
[2019-12-23 17:06] LABS: COLLECTION METHOD CLEAN CATCH
[2019-12-23 17:07] LABS: BASO % 0.4 % (0.0-2.0); EOS # 0.2 (0.0-0.7); GRAN # 2.8 (1.4-6.5); GRAN % 56.5 % (42.2-75.2); HEMATOCRIT 43.6 % (37.0-47.0); HEMOGLOBIN 14.6 g/dl (12.5-16.0); LYMPH # 1.6 (1.2-3.4); LYMPH % 31.1 % (20.0-51.0); MEAN CELL VOLUME 91 fl (80.0-100.0); MEAN CORPUSCULAR HEMOGLOBIN 30 pg (27.0-31.0); MEAN CORPUSCULAR HGB CONC 34 g/dl (33.0-37.0); MEAN PLATELET VOLUME 10.3 fl (7.4-10.4); MONO # 0.4 (0.1-0.6); MONO % 7.8 % (1.7-9.3); PLATELET COUNT 216 K/mm3 (130-400); RED BLOOD COUNT 4.82 M/mm3 (4.10-5.30)
[2019-12-23 17:17] LABS: MUCOUS Present /lpf; PH 5 (5-8); SQUAMOUS EPITHELIAL 0-2 /hpf; URINE APPEARANCE Clear; URINE BACTERIA None Seen /hpf; URINE BILIRUBIN Negative (NEGATIVE); URINE BLOOD 1+ (NEGATIVE); URINE COLOR Straw; URINE GLUCOSE 3+ (NEGATIVE); URINE KETONE Negative (NEGATIVE); URINE LEUKOCYTE ESTERASE Trace (NEGATIVE); URINE NITRATE Negative (NEGATIVE); URINE PROTEIN(semi-quant) Negative (NEGATIVE); URINE RBC 0-2 /hpf; URINE UROBILINOGEN Negative (NEGATIVE)
[2019-12-23 17:22] LABS: ALANINE AMINOTRANSFERASE 7 U/L (4-34); ALBUMIN 4.3 gm/dL (3.5-5.0); ALKALINE PHOSPHATASE 96 U/L (50-136); ANION GAP 13 mmol/L (7-16); AST,SGOT 19 U/L (15-37); BILIRUBIN,TOTAL 0.6 mg/dL (0.0-1.0); BLOOD UREA NITROGEN 32 mg/dL (7-17); C-REACTIVE PROTEIN 0.7 mg/dL (0.0-0.9); CALCIUM 9.5 mg/dL (8.4-10.2); CARBON DIOXIDE 24 mmol/L (22-30); CHLORIDE 99 mmol/L (98-107); CREATININE, serum 1.22 (0.52-1.25); GLUCOSE 220 mg/dL (74-106); POTASSIUM 4.1 mmol/L (3.4-5.0); SODIUM 137 mmol/L (137-145); TOTAL PROTEIN 7.1 gm/dL (6.4-8.2)
[2019-12-23 17:35] LABS: TROPONIN-I < 0.012 ng/mL (0.000-0.035)
[2019-12-23] MEDS ORDERED: KLOR-CON M1010 MEQ PO (20:01)
[2019-12-23] MEDS ORDERED: SINGULAIR 110 MG/TAB PO (20:03)
[2019-12-23] MEDS ORDERED: KLOR-CON 1010 MEQ PO (20:24)
[2019-12-23] MEDS ORDERED: TRILEPTAL 300M300 MG PO (20:24)
--- NOTE | 2019-12-23 20:45 | NUR ---
Patient arrived to medical unit from ER at approximately 1999. Alert and oriented x 4. Able to make needs known. Denies having pain and discomfort at this time. INT to right AC. Site is without redness, warmth, swelling, and pain. Reports occasional SOB with exertion, denies at rest. On room air, and not requiring any oxygen. LS CTA. Respirations even and unlabored. Reports occasional cough from "allergies." HR irregular. Telemetry in place: A-flutter. Capillary refill less than 3 seconds. Non-tenting skin turgor. BSAx4. Abdomen soft and non-tender. 2+ edema BLE. Given sandwich box and juice as requested. Attempted to call son in room to update him per patient's request, but no answer. Patient left message. Voices no further questions, needs, or concerns at this time. Resting in bed with call light within reach.
[2019-12-23 21:30] VITALS: BP 165/53; PULSE 86; TEMP 97.3
[2019-12-23 23:51] VITALS: BP 132/53; PULSE 86; TEMP 97.8
[2019-12-24] VITALS (14 sets, daily range): BP systolic 85–147; BP diastolic 41–88; PULSE 54–98; TEMP 97.5–98.3
--- NOTE | 2019-12-24 00:23 | NUR ---
Doppler used to get pedal pulses at this time. Interrogated loop recorder as well at this time. Denies having pain and discomfort. Voices no questions, needs, or concerns at this time. Resting in bed with call light within reach.
--- NOTE | 2019-12-24 05:32 | NUR ---
Patient has continued to deny having pain and discomfort this shift. High fall risk precautions due to orthostatic hypotension. Has been calling for assistance with going to the bathroom. Voices no questions, needs, or concerns at this time. Resting in bed with call light within reach.
[2019-12-24 07:59] LABS: BASO % 0.6 % (0.0-2.0); EOS # 0.2 (0.0-0.7); EOS % 4.1 % (0-4.0); GRAN # 2.8 (1.4-6.5); GRAN % 53.5 % (42.2-75.2); HEMATOCRIT 41.8 % (37.0-47.0); LYMPH # 1.7 (1.2-3.4); LYMPH % 32.4 % (20.0-51.0); MEAN CELL VOLUME 91 fl (80.0-100.0); MEAN CORPUSCULAR HEMOGLOBIN 31 pg (27.0-31.0); MEAN CORPUSCULAR HGB CONC 34 g/dl (33.0-37.0); MEAN PLATELET VOLUME 10.9 fl (7.4-10.4); MONO # 0.4 (0.1-0.6); MONO % 8.6 % (1.7-9.3); PLATELET COUNT 185 K/mm3 (130-400); RED BLOOD COUNT 4.59 M/mm3 (4.10-5.30); REDCELL DISTRIBUTION WIDTH-CV 13.1 % (11.5-14.5)
[2019-12-24 08:15] LABS: ANION GAP 6 mmol/L (7-16); BLOOD UREA NITROGEN 26 mg/dL (7-17); CALCIUM 8.4 mg/dL (8.4-10.2); CARBON DIOXIDE 26 mmol/L (22-30); CHLORIDE 107 mmol/L (98-107); CREATININE, serum 1.04 (0.52-1.25); GLUCOSE 210 mg/dL (74-106); POTASSIUM 3.3 mmol/L (3.4-5.0); SODIUM 140 mmol/L (137-145)
--- NOTE | 2019-12-24 08:26 | NUR ---
Pt assessment complete. Pt is laying in bed upon entry, arouses to touch and speech. Pt is very drowsy but answers questions appropriately. Was able to participate in orthostatic vitals with assistance. Reported dizziness when standing for BP. Pt reports pain in her feet. No SOB. No N/V. Sitting on the side of the bed eating breakfast at this time. Call light within reach. Bed alarm in place.
[2019-12-24 08:28] LABS: TROPONIN-I < 0.012 ng/mL (0.000-0.035)
--- NOTE | 2019-12-24 09:11 | NUR ---
Initial visit; Patient thanked Electric Razor Assembler for looking in on her, visiting and offering prayer and encouragement.
--- NOTE | 2019-12-24 10:55 | NUR ---
Fisher Eel received [facility] paperwork and Report of Examination and Evaluation for Guardian and/or Conservatorship. It was placed in the chart. MC attempted to contact the MC Guzman with Dr. Estrada office, left message. MC attempted to contact the patient's son, Mehran to discuss placement, left message.
--- NOTE | 2019-12-24 11:21 | NUR ---
Pilot Control Operator Helper attended clinical rounds with the team. The patient states that her son Darian is her DPOA-HC. She was shown the current DPOA-HC that names Mehran and she disagreed. SW attempted to contact Darian, left message. Will continue to monitor.
--- NOTE | 2019-12-24 11:40 | NUR ---
Megan contacted this Canceling Machine Operator. She confirms that the only DPOA-HC they have on file is the patients son, Mehran. Megan reports that an APS worker assigned to the patient is Mireya # [phone]. Emgan reports that Mireya was going to close the case. Megan to contact Mireya. Megan reports that the COOKIE MIXER HELPER at the information and data architect analyst office that the patient is non-compliant with her diabetes. MC made an APS report. Intake # [id number]. The patient's son, Darian contacted MC. He provided another phone number for Mehran # [phone]. Will continue to monitor.
[2019-12-24] MEDS ORDERED: JARDIANCE10 (12:39)
[2019-12-24] MEDS ORDERED: ABILIFY 15MG TA15 MG PO (12:41)
[2019-12-24] MEDS ORDERED: TRILEPTAL 300M300 MG PO (12:54)
--- NOTE | 2019-12-24 13:09 | NUR ---
Follow-up; Patient requested visit. Patient appeared anxious, tearful and angry regarding some issues regarding her personal and health care. Landfill Gas Plant Field Technician mentioned she would speak with her Assistant Case Manager and suggested Cecille think of her 'michele' and letting God handle her issues. Landfill Gas Plant Field Technician then reported her condition to her Assistant Case Manager who is aware of the situation and addressing the issues.
--- NOTE | 2019-12-24 14:27 | NUR ---
Group Worker contacted the patient's son/DPDIO-CLARISSA Laurent # [phone], left message. Will continue to follow.
--- NOTE | 2019-12-24 15:12 | NUR ---
Bag Adjuster contacted the patient's son, Darian to discuss the patient's care. Darian reports he just co-signed for the patient to be able to rent an apartment at [facility]. He was not aware of when the lease would start. MC discussed the report of examination and eval for guardianship or convervatorship that was made by Dr. North. Darian reports that the patient want to fight it. SW discussed the patient's inablility to care for herself and numerous ED visits. SW discussed what Megan the SW at Dr. North's office stated regarding the patient's diabetes management and her lack of being able to manage it. Darian was agreeable to sending referrals for placement. I informed Darian that it may turn to a ocean transportation intermediary care placement or assisted living situation. He understood. SW informed Darian to have Mehran contact this SW to discuss the patient's care. Will continue to monitor.
--- NOTE | 2019-12-24 15:34 | NUR ---
Luster Applicator met with the patient to complete intake. The patient lives alone in [place] with her therapy cat, Lacey. The patient uses a cane and walker. The patient's PCP is Dr. North. The patient states that she is trying to switch to Dr. Raza. However, she states her son illegally will not let her switch. She states she contacted [employer] regarding the issue. The patient receives medications via mail from [facility] if needed. The patient has advanced directives and they designate her son, Mehran Rose. SW will continue to monitor for a safe discharge.
--- NOTE | 2019-12-24 16:19 | NUR ---
The patient's son, Mehran contacted SW. SW discussed the exam and eval that Dr. North completed. He is agreeable to being the DPOA-HC for the patient. Mehran states that they were trying to get the patient to [facility] because she would be closer to his job. He states he does help her out but cannot go daily to see her. Mehran recognizes the patient is physically limited to care for herself. She is incontinent because she cannot make it to the bathroom on time and she will not wear briefs. The patient has trouble getting the trash out and it is only 50 ft away. He is aware she has a history of falling and had a major fall in [place]. MC discussed the referrals that were sent. The first choice is [facility], second choice is [facility] and third choice is [facility]. The patient would like the patient to be in assisted living. He states she is physically limited and having assistance would be good for her. Mehran states that the best number to contact him before 10:00 am is # [phone] and after 10:00 am # [phone]. Will continue to monitor.
--- NOTE | 2019-12-24 18:59 | NUR ---
Pt much more alert this afternoon. Denied any pain. Did have a couple of outbursts of frustration, d/t not being able to eat, talk to her sister that is in [place] etc. Dizziness minimal, worse with standing. Discussed plan to stay NPO after midnight. No needs at this time. Call light within reach.
--- NOTE | 2019-12-24 20:00 | NUR ---
Received report from SALYL lim. Pt sitting up on side of bed with dinner tray. Pt upset with her salad dinner, unfortunately kitchen was already closed at this time. Provided pt with sandwich box and other snacks. Scheduled meds administered. Fluids infusing to RAC, intact. Tele monitor in place. Needs attended too. call light within reach. Bed alarm set. Pt understands NPO status at midnight. POC explained to pt.
--- NOTE | 2019-12-25 03:02 | NUR ---
0226: Pt c/o mid chest pain/mid epigastric pain, rate 7.5/10, that radiates to upper chest. also c/o headache. VSS. Tele monitor showed no changed, aflutter. 0228: Dr Young notified of pt condition. State lab, EKG, and CXR ordered. 0300: Administered PRN GI cocktail however pt only consumed 10ml, states it doesnt work and refused to consume entire dose. Pt then states chest pain and headache is subsiding. Labs drawn. Unable to obtain accurate EKG d/t bladder stimulator implant. Awaiting CXR at this time. Will monitor.
[2019-12-25 03:07] LABS: BASO % 0.2 % (0.0-2.0); EOS # 0.3 (0.0-0.7); EOS % 5.3 % (0-4.0); GRAN # 2.7 (1.4-6.5); HEMATOCRIT 39.5 % (37.0-47.0); HEMOGLOBIN 13.2 g/dl (12.5-16.0); LYMPH # 1.4 (1.2-3.4); LYMPH % 29.6 % (20.0-51.0); MEAN CELL VOLUME 91 fl (80.0-100.0); MEAN CORPUSCULAR HEMOGLOBIN 30 pg (27.0-31.0); MEAN CORPUSCULAR HGB CONC 33 g/dl (33.0-37.0); MEAN PLATELET VOLUME 10.1 fl (7.4-10.4); MONO # 0.4 (0.1-0.6); MONO % 7.7 % (1.7-9.3); PLATELET COUNT 176 K/mm3 (130-400); RED BLOOD COUNT 4.35 M/mm3 (4.10-5.30); REDCELL DISTRIBUTION WIDTH-CV 13.2 % (11.5-14.5)
[2019-12-25 03:13] LABS: ANION GAP 7 mmol/L (7-16); BLOOD UREA NITROGEN 18 mg/dL (7-17); CALCIUM 7.8 mg/dL (8.4-10.2); CARBON DIOXIDE 20 mmol/L (22-30); CHLORIDE 111 mmol/L (98-107); CREATININE, serum 0.88 (0.52-1.25); GLUCOSE 240 mg/dL (74-106); POTASSIUM 3.5 mmol/L (3.4-5.0); SODIUM 138 mmol/L (137-145)
[2019-12-25 03:14] VITALS: BP 138/52; PULSE 80
--- NOTE | 2019-12-25 03:17 | NUR ---
RT tech in at this time with pt. Pt states CP rate is 2/10 with slight headache. Will monitor pt.
[2019-12-25 03:20] VITALS: BP 138/51; PULSE 53; TEMP 98.4
[2019-12-25 03:29] LABS: TROPONIN-I < 0.012 ng/mL (0.000-0.035)
--- NOTE | 2019-12-25 04:20 | NUR ---
NAD. Pt sleeping at this time, laying comfortably in bed. Bed alarm set. Call light within reach.
--- NOTE | 2019-12-25 04:45 | NUR ---
Trp negative. Pt sleeping w/o symptoms. NAD. Per tele, occasional drop of HR at 38, pt sleeping at this time. Dr Lomas updated and lower HR limits changed to [address] Lomas.
--- NOTE | 2019-12-25 05:57 | NUR ---
Meds administered with small sips of water. NAD. pt states CP and GUZMAN subsided. NPO since midnight. Needs attended too. Call light within reach.
--- NOTE | 2019-12-25 06:58 | NUR ---
Report given to SALLY Sheikh.
[2019-12-25 07:38] VITALS: BP 148/42; PULSE 58; TEMP 97.8
--- NOTE | 2019-12-25 08:00 | NUR ---
Patient in bed resting. Alert and oriented x 3. States she is upset that she has not been able to eat since yesterday morning, patient NPO for possible procedure today, will verify with hospitalist/cardiology. Denies pain at this time, fluids infusing to right AC IV. Denies further needs at this time.
--- NOTE | 2019-12-25 09:00 | NUR ---
Contacted Agatha MENESES about diet order, no new orders at this time.
--- NOTE | 2019-12-25 10:04 | NUR ---
[facility] reports [facility] cannot meet the patient's needs.
--- NOTE | 2019-12-25 10:05 | NUR ---
Janes herrera [facility] reports they cannot accept the patient.
[2019-12-25 10:51] VITALS: BP 119/54; PULSE 57; TEMP 97.3
--- NOTE | 2019-12-25 11:00 | NUR ---
Notified hospitalist that patient states there is "no way she will be going to rehab". Educated patient on rehab.
--- NOTE | 2019-12-25 11:01 | NUR ---
Patient refusing to allow staff to obtain orthostatic blood pressures. Attempted to educate patient. Patient continues to refuse.
--- NOTE | 2019-12-25 11:06 | NUR ---
X Ray Inspector contacted the patient's son/DPOA-HC, Mehran to provide update and inform about denials at [facility] and [facility]. [facility] clinical team still reviewing. Mehran was agreeable to sending two more to [facility] in [place] and to [facility] in [place]. Referral sent. MC contacted Tanvi at [facility]. They have no female bed available at this time. MC contacted Cynthia with [facility] to inform her of the referral. The team will review the referral then inform MC. Will continue to monitor.
--- NOTE | 2019-12-25 12:32 | NUR ---
Notified Agatha MENESES, patient would like to talk to provider about rehab.
[2019-12-25] MEDS ORDERED: FLORINEF ACETA0.1 MG PO (14:21)
--- NOTE | 2019-12-25 15:27 | NUR ---
Patient napping. Will continue to monitor.
--- NOTE | 2019-12-25 15:30 | NUR ---
Discharge education provided to patient. Educated on medication changes and new medications. Patient/son to call and schedule follow up appointment with PCP. All questions answered. INT discontinued, catheter tip intact. Denies further needs at this time.
--- NOTE | 2019-12-25 16:00 | NUR ---
Patients ride will be here at 1930. Denies further needs at this time.
[2019-12-25 16:42] VITALS: BP 112/51; PULSE 80; TEMP 97.9
--- NOTE | 2019-12-25 17:00 | NUR ---
The patient is to discharge home today, 12/24 with son and [facility].PT/OT/NURSING. Earlier in the day, Social Workers contacted the patient's son, Mehran over speaker phone. He states he was not aware of any guardianship paperework. Mehran was agreeable to sending referrals but would not allow the patient to spend the weekend here to await placement. MC met with the patient she was agreeable to [facility] and discussed Medicare.gov's list of agencies. She chose [facility]. Referral faxed. Princess from [facility] can accept. MC faxed referrals to [facility], [facility], Tyree at [facility], and [facility]. There are no additional needs at time.
--- NOTE | 2019-12-25 19:00 | NUR ---
Will report off to material handler 2nd shift.
--- NOTE | 2019-12-25 20:32 | NUR ---
Pt escorted via WC by [facility] staff. Dtr in law picked up pt at ED.
== END 2019-12-25 20:30 | disposition home or self-care (01) | DRG 313 ==
LOC: COL.ER 16:15 → MEDICAL 17:50
PROVIDERS: Emergency Medicine; Nurse Practitioner Family; Physician Assistant; ADMIT Hospitalist
DX: R07.89 Other chest pain (principal); I25.10 Atherosclerotic heart disease of native coronary artery without angina pectoris; I48.91 Unspecified atrial fibrillation; I95.1 Orthostatic hypotension; E78.5 Hyperlipidemia, unspecified; F31.9 Bipolar disorder, unspecified; G20 Parkinson's disease; E11.40 Type 2 diabetes mellitus with diabetic neuropathy, unspecified; F17.210 Nicotine dependence, cigarettes, uncomplicated; E03.9 Hypothyroidism, unspecified; R82.81 Pyuria; R42 Dizziness and giddiness; Z90.89 Acquired absence of other organs; Z90.710 Acquired absence of both cervix and uterus; Z79.84 Long term (current) use of oral hypoglycemic drugs; Z86.73 Personal history of transient ischemic attack (TIA), and cerebral infarction without residual deficits
CPT/HCPCS: 99223-AI; 99232-AI; 99239; A9500; G0378; J1815; J2785; J7030

== ENCOUNTER → 2019-12-31 | Outpatient (CLI) | payer MEDICARE, BC ==
[~2019-12-31] MED LIST changes: +ABILIFY 15MG TA15 MG PO; +FLORINEF ACETA0.1 MG PO; +JARDIANCE10; +KLOR-CON 1010 MEQ PO; +KLOR-CON M1010 MEQ PO; +SINGULAIR 110 MG/TAB PO; +TRILEPTAL 300M300 MG PO
== END ==
LOC: BHSO 15:19
DX: F31.81 Bipolar II disorder (principal)
CPT/HCPCS: G0463

== ENCOUNTER → 2020-01-25 | Outpatient (CLI) | payer MEDICARE, BC | LOC: BHSO 13:10 | DX: F31.81 Bipolar II disorder (principal) | CPT/HCPCS: G0463 ==

== ENCOUNTER 2020-04-19 13:03 | Emergency (ER) | payer MEDICARE, BC ==
[~2020-04-19] VITALS: Ht 152.4 cm; Wt 79.5 kg
[2020-04-19 13:06] VITALS: TEMP 98.1
[2020-04-19 13:39] LABS: COLLECTION METHOD CLEAN CATCH
[2020-04-19 13:49] LABS: BASO % 0.4 % (0.0-2.0); EOS # 0.2 (0.0-0.7); EOS % 2.8 % (0-4.0); GRAN # 3.6 (1.4-6.5); GRAN % 66.4 % (42.2-75.2); HEMATOCRIT 37.1 % (37.0-47.0); HEMOGLOBIN 12.7 g/dl (12.5-16.0); LYMPH # 1.3 (1.2-3.4); LYMPH % 24.5 % (20.0-51.0); MEAN CELL VOLUME 87 fl (80.0-100.0); MEAN CORPUSCULAR HEMOGLOBIN 30 pg (27.0-31.0); MEAN CORPUSCULAR HGB CONC 34 g/dl (33.0-37.0); MEAN PLATELET VOLUME 10.1 fl (7.4-10.4); MONO # 0.3 (0.1-0.6); MONO % 5.5 % (1.7-9.3); PLATELET COUNT 212 K/mm3 (130-400); RED BLOOD COUNT 4.27 M/mm3 (4.10-5.30); REDCELL DISTRIBUTION WIDTH-CV 12.3 % (11.5-14.5)
[2020-04-19 13:57] LABS: ALANINE AMINOTRANSFERASE < 4 U/L (4-34); ALBUMIN 3.4 gm/dL (3.5-5.0); ALKALINE PHOSPHATASE 119 U/L (50-136); ANION GAP 8 mmol/L (7-16); AST,SGOT 18 U/L (15-37); BILIRUBIN,TOTAL 0.7 mg/dL (0.0-1.0); BLOOD UREA NITROGEN 30 mg/dL (7-17); CALCIUM 8.8 mg/dL (8.4-10.2); CARBON DIOXIDE 20 mmol/L (22-30); CHLORIDE 102 mmol/L (98-107); CREATININE, serum 1.19 (0.52-1.25); LIPASE 167 U/L (23-300); POTASSIUM 4.7 mmol/L (3.4-5.0); SODIUM 130 mmol/L (137-145)
[2020-04-19 13:58] LABS: GLUCOSE 414 mg/dL (74-106)
[2020-04-19 14:03] LABS: MUCOUS Present /lpf; PH 6 (5-8); SQUAMOUS EPITHELIAL None Seen /hpf; URINE APPEARANCE Hazy; URINE BACTERIA Rare /hpf; URINE BILIRUBIN Negative (NEGATIVE); URINE BLOOD Negative (NEGATIVE); URINE COLOR Yellow; URINE GLUCOSE 3+ (NEGATIVE); URINE KETONE Trace (NEGATIVE); URINE LEUKOCYTE ESTERASE Trace (NEGATIVE); URINE NITRATE Negative (NEGATIVE); URINE PROTEIN(semi-quant) 1+ (NEGATIVE); URINE RBC 0-2 /hpf; URINE UROBILINOGEN Negative (NEGATIVE)
[2020-04-19 14:08] LABS: TROPONIN-I < 0.012 ng/mL (0.000-0.035)
[2020-04-19 17:43] VITALS: BP 115/60; PULSE 68
== END 2020-04-19 17:44 | disposition home or self-care (01) ==
LOC: COL.ER 13:03
PROVIDERS: Emergency Medicine
DX: M79.641 Pain in right hand (principal); R73.9 Hyperglycemia, unspecified; Z88.8 Allergy status to other drugs, medicaments and biological substances; Z79.02 Long term (current) use of antithrombotics/antiplatelets; Z79.84 Long term (current) use of oral hypoglycemic drugs
CPT/HCPCS: J0696; J1815; J7040

== ENCOUNTER 2020-04-27 08:54 | Emergency (ER) | payer MEDICARE, BC ==
[~2020-04-27] VITALS: Ht 152.4 cm; Wt 78.6 kg
[2020-04-27 08:55] VITALS: BP 122/82; TEMP 98.2
[2020-04-27 12:06] LABS: ALBUMIN 3.7 gm/dL (3.5-5.0); BILIRUBIN,TOTAL 0.9 mg/dL (0.0-1.0); CALCIUM 8.9 mg/dL (8.4-10.2); CREATININE, serum 1.22 (0.52-1.25); POTASSIUM 4.5 mmol/L (3.4-5.0); TOTAL PROTEIN 6.4 gm/dL (6.4-8.2)
[2020-04-27 12:27] LABS: TROPONIN-I 0.013 ng/mL (0.000-0.035)
[2020-04-27 12:28] LABS: COLLECTION METHOD CATHETER
[2020-04-27 13:04] VITALS: PULSE 78
[2020-04-27 13:43] LABS: BASO % 0.3 % (0.0-2.0); EOS # 0.1 (0.0-0.7); EOS % 1.4 % (0-4.0); GRAN # 4.9 (1.4-6.5); GRAN % 75.7 % (42.2-75.2); HEMATOCRIT 40.1 % (37.0-47.0); HEMOGLOBIN 13.7 g/dl (12.5-16.0); LYMPH % 16.1 % (20.0-51.0); MEAN CELL VOLUME 89 fl (80.0-100.0); MEAN CORPUSCULAR HEMOGLOBIN 30 pg (27.0-31.0); MEAN CORPUSCULAR HGB CONC 34 g/dl (33.0-37.0); MEAN PLATELET VOLUME 9.9 fl (7.4-10.4); MONO # 0.4 (0.1-0.6); PLATELET COUNT 226 K/mm3 (130-400); RED BLOOD COUNT 4.52 M/mm3 (4.10-5.30); REDCELL DISTRIBUTION WIDTH-CV 12.5 % (11.5-14.5)
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
[2020-04-27 17:07] LABS: MUCOUS Present /lpf; PH 6 (5-8); URINE APPEARANCE Hazy; URINE BACTERIA None Seen /hpf; URINE BILIRUBIN Negative (NEGATIVE); URINE BLOOD Negative (NEGATIVE); URINE COLOR Yellow; URINE GLUCOSE 3+ (NEGATIVE); URINE KETONE 1+ (NEGATIVE); URINE LEUKOCYTE ESTERASE 2+ (NEGATIVE); URINE NITRATE Negative (NEGATIVE); URINE PROTEIN(semi-quant) 2+ (NEGATIVE); URINE UROBILINOGEN Negative (NEGATIVE)
== END 2020-04-27 13:04 | disposition home or self-care (01) ==
LOC: COL.ER 08:54
PROVIDERS: Emergency Medicine
DX: M79.641 Pain in right hand (principal); R41.82 Altered mental status, unspecified; R53.81 Other malaise; R73.9 Hyperglycemia, unspecified; Z87.891 Personal history of nicotine dependence; Z86.73 Personal history of transient ischemic attack (TIA), and cerebral infarction without residual deficits; Z90.710 Acquired absence of both cervix and uterus; Z88.8 Allergy status to other drugs, medicaments and biological substances; Z79.84 Long term (current) use of oral hypoglycemic drugs; Z79.02 Long term (current) use of antithrombotics/antiplatelets

== ENCOUNTER 2020-04-29 17:27 | Inpatient (IN) | payer MEDICARE, BC ==
[~2020-04-29] VITALS: Ht 152.4 cm; Wt 74.8 kg
[2020-04-29 18:10] LABS: BASO % 0.3 % (0.0-2.0); EOS % 0.6 % (0-4.0); GRAN # 4.6 (1.4-6.5); GRAN % 74.7 % (42.2-75.2); HEMATOCRIT 38.6 % (37.0-47.0); HEMOGLOBIN 13.3 g/dl (12.5-16.0); LYMPH % 16.5 % (20.0-51.0); MEAN CELL VOLUME 87 fl (80.0-100.0); MEAN CORPUSCULAR HEMOGLOBIN 30 pg (27.0-31.0); MEAN CORPUSCULAR HGB CONC 35 g/dl (33.0-37.0); MEAN PLATELET VOLUME 10.2 fl (7.4-10.4); MONO # 0.5 (0.1-0.6); MONO % 7.6 % (1.7-9.3); PLATELET COUNT 188 K/mm3 (130-400); RED BLOOD COUNT 4.45 M/mm3 (4.10-5.30); REDCELL DISTRIBUTION WIDTH-CV 12.3 % (11.5-14.5)
[2020-04-29 18:23] LABS: ALBUMIN 3.9 gm/dL (3.5-5.0); BILIRUBIN,TOTAL 0.6 mg/dL (0.0-1.0); C-REACTIVE PROTEIN 0.6 mg/dL (0.0-0.9); CALCIUM 9.2 mg/dL (8.4-10.2); CREATININE, serum 1.73 (0.52-1.25); POTASSIUM 4.6 mmol/L (3.4-5.0); TOTAL PROTEIN 6.5 gm/dL (6.4-8.2)
[2020-04-29 18:26] LABS: COLLECTION METHOD CATHETER
[2020-04-29 18:32] LABS: HYALINE CAST >12 /lpf; MUCOUS Present /lpf; PH 5 (5-8); SQUAMOUS EPITHELIAL None Seen /hpf; URINE APPEARANCE Hazy; URINE BACTERIA None Seen /hpf; URINE BILIRUBIN Negative (NEGATIVE); URINE BLOOD 1+ (NEGATIVE); URINE COLOR Yellow; URINE GLUCOSE 3+ (NEGATIVE); URINE KETONE Trace (NEGATIVE); URINE LEUKOCYTE ESTERASE Negative (NEGATIVE); URINE NITRATE Negative (NEGATIVE); URINE PROTEIN(semi-quant) 1+ (NEGATIVE); URINE RBC 0-2 /hpf; URINE UROBILINOGEN Negative (NEGATIVE)
[2020-04-29 18:32] LABS: TROPONIN-I 0.02 ng/mL (0.000-0.035)
[2020-04-29] MEDS ORDERED: VOLTAREN GEL 1%1 TU TP (21:13)
[2020-04-29 21:33] LABS: MAGNESIUM 2.2 mg/dL (1.6-2.3)
[2020-04-29 21:56] VITALS: BP 151/70; PULSE 78; TEMP 97.5
[2020-04-29 22:04] LABS: TSH w REFLEX 1.71 uIU/mL (0.465-4.680)
[2020-04-29] MEDS ORDERED: GLUCOTROL 5M5 MG/TAB PO (23:05)
[2020-04-29] MEDS ORDERED: K-DUR 10 MEQ T10 MEQ PO (23:05)
[2020-04-29] MEDS ORDERED: LASIX 20MG TABL20 MG PO (23:08)
[2020-04-29] MEDS ORDERED: LITHIUM 30300 MG/CAP PO (23:08)
[2020-04-29] MEDS ORDERED: JANUVIA50 MG PO (23:10)
[2020-04-29 23:35] VITALS: BP 132/69; PULSE 69; TEMP 98.3
[2020-04-30 04:54] VITALS: BP 116/78; PULSE 81; TEMP 98
--- NOTE | 2020-04-30 06:00 | NUR ---
Patient has been sleeping most the night, since arriving to the unit. She is upset this morning because her home medications have not been restarted. She stated that she will without her syntroid. Explained that when Doctors round today they will look at her medications and restart them. She asked if I talked to her son about pills she dropped at home. Let her know we have tried to call him but he won't answer the phone. No other changes at this time. Call light within reach. Bed alarm on.
--- NOTE | 2020-04-30 07:30 | NUR ---
PATIENT IS VERY UPSET DURING SHIFT CHANGE ABOUT HER SYNTHROID NOT BEING RESTARTED. PATIENT IS YELLING "IM JUST GOING TO " AND IS CUSSING. PATIENT REFUSING AM CARES, LABS AND REFUSES TO EAT BREAKFAST UNTIL SHE GETS HER SYNTHROID. NURSING PLACED CALL TO HOSPITALIST, AWAITING MEDICATION REVIEW.
--- NOTE | 2020-04-30 08:00 | NUR ---
PATIENT MORE CALM NOW THAT HER SYNTHROID HAS BEEN RESUMED. ORIENTED X3 BUT DISPLAYS SOME FORGETFULNESS. VSS WITH TELE. AM BS IS 98, NO SSI REQUIRED. NO C/O N/V. IV FLUIDS INFUSING VIA PUMP INTO RIGHT HAND IV. ADA DIET. HEAD TO TOE ASSESSMENT COMPLETE. DNR. PT/OT CONSULTED.
[2020-04-30 09:09] VITALS: BP 142/64; PULSE 58; TEMP 97.4
[2020-04-30 12:00] VITALS: BP 138/59; PULSE 68; TEMP 97.9
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
[2020-04-30 16:29] VITALS: BP 123/59; PULSE 51; TEMP 98.6
[2020-04-30 16:34] LABS: BASO % 0.4 % (0.0-2.0); EOS # 0.1 (0.0-0.7); GRAN # 3.7 (1.4-6.5); GRAN % 72.4 % (42.2-75.2); HEMATOCRIT 36.7 % (37.0-47.0); HEMOGLOBIN 12.3 g/dl (12.5-16.0); LYMPH # 1.1 (1.2-3.4); LYMPH % 20.8 % (20.0-51.0); MEAN CELL VOLUME 88 fl (80.0-100.0); MEAN CORPUSCULAR HEMOGLOBIN 30 pg (27.0-31.0); MEAN CORPUSCULAR HGB CONC 34 g/dl (33.0-37.0); MONO # 0.2 (0.1-0.6); MONO % 4.2 % (1.7-9.3); PLATELET COUNT 190 K/mm3 (130-400); RED BLOOD COUNT 4.17 M/mm3 (4.10-5.30); REDCELL DISTRIBUTION WIDTH-CV 12.7 % (11.5-14.5)
[2020-04-30 16:44] LABS: CALCIUM 7.9 mg/dL (8.4-10.2); POTASSIUM 3.9 mmol/L (3.4-5.0)
--- NOTE | 2020-04-30 19:20 | NUR ---
PT RESTING IN BED FINISHING UP HER EVENING MEAL. DENIES ANY NEEDS AT THIS TIME. CALL LIGHT IN REACH.
[2020-04-30 21:10] VITALS: BP 136/48; PULSE 82; TEMP 98.3
[2020-05-01] VITALS (7 sets, daily range): BP systolic 115–142; BP diastolic 47–80; PULSE 61–70; TEMP 97.4–97.9
--- NOTE | 2020-05-01 07:17 | NUR ---
PT HAD UNEVENTFUL NIGHT. ENCOURAGED TO HOLD CUP AND FEED SELF. STATES SHE CAN NOT DO THAT. EXPLAINED TO HER IF SHE WANTS TO GO HOME SHE HAS TO BE ABLE TO FEED HERSELF. LAST BS THIS AM WAS 156 AND RECEIVED 2 UNITS NOVOLOG. HAD HER SYNTHROID AT 4AM TODAY. VS WITHIN NORMAL LIMITS. BED ALARM ON. CALL LIGHT IN REACH.
[2020-05-01 07:39] LABS: BASO % 0.4 % (0.0-2.0); EOS # 0.3 (0.0-0.7); EOS % 5.4 % (0-4.0); GRAN # 2.9 (1.4-6.5); GRAN % 53.6 % (42.2-75.2); HEMATOCRIT 37.5 % (37.0-47.0); HEMOGLOBIN 12.5 g/dl (12.5-16.0); LYMPH # 1.8 (1.2-3.4); LYMPH % 33.5 % (20.0-51.0); MEAN CELL VOLUME 89 fl (80.0-100.0); MEAN CORPUSCULAR HEMOGLOBIN 30 pg (27.0-31.0); MEAN CORPUSCULAR HGB CONC 33 g/dl (33.0-37.0); MEAN PLATELET VOLUME 9.7 fl (7.4-10.4); MONO # 0.4 (0.1-0.6); MONO % 6.9 % (1.7-9.3); PLATELET COUNT 193 K/mm3 (130-400); REDCELL DISTRIBUTION WIDTH-CV 12.8 % (11.5-14.5)
[2020-05-01 07:51] LABS: CREATININE, serum 0.99 (0.52-1.25); POTASSIUM 3.7 mmol/L (3.4-5.0)
--- NOTE | 2020-05-01 08:00 | NUR ---
PATIENT IS ORIENTED TO PERSON BUT CONFUSED. VSS. ASSESSMENT THE SAME PREVIOUS DAY. DNR. AM MEDS GIVEN. PATIENT ASSISTED TO BEDSIDE CHAIR FOR BREAKFAST. NO OTHER NEEDS
--- NOTE | 2020-05-01 09:38 | NUR ---
sorting cows worker confirmed that [facility] will not admit patient due to history of non compliance and high needs in the home. Patient and son have completed a [employer] application in Dr North's office on 04/29/2120. Will await acceptance of this insurance. Son told Dr North's office he plans to pursue anthropologist care placement when [employer] is confirmed. At this time, patient is not accepted to detention care and home health services due to no insurance coverage. Son was provided private pay resources by Dr North's office on 04/29/2020. Dr North's office has completed an adult protective services report. Patient is verbal that she does not want nursing facility placement, however, Dr North's office confirmed that a letter was written to confirm that patient's durable power of corporate associate attorney should be enacted.
--- NOTE | 2020-05-01 11:48 | NUR ---
MC spoke with nut processing supervisor regarding patient status. Patient's current needs exceed home health ability. Patient is currently listed under observation status and would be unable to use Medicare for SNF. Patient has Medicaid application pending. Family is unable to pay out of pocket costs for SNF or rehab. Patient will not discharge home today 05/01. Please check in on status tomorrow 05/02.
--- NOTE | 2020-05-01 19:26 | NUR ---
RECEIVED CHANGE OF SHIFT REPORT FROM DAY SHIFT NURSE.
--- NOTE | 2020-05-01 23:01 | NUR ---
REPORTS HAS LEFT EYE TWITCHING WITH PAIN. REFUSES TO HAVE TYLENOL ORDERED FOR C/O EYE PAIN AND ALSO REPORTS HAS HEAD PAIN TO L EYE AREA.
--- NOTE | 2020-05-01 23:54 | NUR ---
PATIENT C/O LEFT EYE TWITCHING AND LEFT EYE PAIN WITH HEADACHE, STATES SHE DOES NOT TAKE TYLENOL, TAKE MOTRIN. INFORMED ONCALL HOSP PROVIDER OF PATIENT'S PAIN C/O WITH ORDER FOR ONE DOSE MOTRIN TO BE GIVEN.
[2020-05-02 03:51] VITALS: BP 107/47; PULSE 58; TEMP 98
--- NOTE | 2020-05-02 04:15 | NUR ---
PATIENT VERBALIZES THAT HER HAND GOES TO SLEEP AND SHE IS UNABLE TO HOLD ONTO THINGS WHEN ATTEMPTING TO FEED SELF, VERBALIZES THAT SHE CAN'T DO IT, REFERING TO FEED HERSELF. WITH ENCOURAGEMENT IS ABLE TO HOLD ONTO CUP WITH BOTH HANDS, WITH PILL PUT INTO HER MOUTH FROM MED CUP THAT IS HELD BY STAFF. PATIENT ALSO VERBALIZES THAT SHE CAN'T DO IT WHEN ATTEMPTS TO ENCOURAGE PATIENT TO REPOSITION SELF TO SIT AT SIDE OF BED, PATIENT REQUIRING MAX ASSIST TO SIT AT EDGE OF BED AND REQUIRES MAX ASSTX2 WITH GAIT BELT TO STAND, PATIENT DOES NOT STAND STRAIGHT/OBSERVING PATIENT NOT ASSISTING WITH TRANSFER WHEN PLACED ON BEDSIDE COMMODE, OBSERVED PATIENT WITH RIGHT LEG HELD UP ABOVE SEAT OF COMMODE AND DOES NOT LOWER R LEG WHEN STAFF ENCOURAGES PATIENT TO LOWER LEG FOR SITTING STABILITY WHILE ON BSC. PATIENT AFTER VOIDING CONTINUES TO REQUIRE MAX ASST WITH TRANSFER FROM BSC BACK TO BED, WITH PATIENT NOT ASSTING WITH STANDING FOR PIVOT TRANSFER WITH MAX ASST TO TRANSITION FROM SIT TO LYING DOWN IN BED WITH X2 ASST.
--- NOTE | 2020-05-02 05:41 | NUR ---
REPORTED BY PCT, PATIENT ASST WITH TRANSFER FROM BED TO BSC WITH MIN ASST, PERFORMED PERICARE WITHOUT ASST FROM PCT, AND PATIENT ABLE TO GET HERSELF BACK INTO BED WITH MIN ASST FROM PCT.
--- NOTE | 2020-05-02 07:00 | NUR ---
Report received from SALLY Galarza. Pt in bed resting, lab in room at this time drawing am labs. Will continue to monitor.
--- NOTE | 2020-05-02 07:01 | NUR ---
CHANGE OF SHIFT REPORT GIVEN TO DAY SHIFT NURSE, CAT.
[2020-05-02 07:35] LABS: BASO % 0.2 % (0.0-2.0); EOS # 0.3 (0.0-0.7); EOS % 6.6 % (0-4.0); GRAN # 2.6 (1.4-6.5); GRAN % 53.4 % (42.2-75.2); HEMOGLOBIN 11.5 g/dl (12.5-16.0); LYMPH # 1.6 (1.2-3.4); MEAN CELL VOLUME 90 fl (80.0-100.0); MEAN CORPUSCULAR HEMOGLOBIN 30 pg (27.0-31.0); MEAN CORPUSCULAR HGB CONC 33 g/dl (33.0-37.0); MEAN PLATELET VOLUME 10.3 fl (7.4-10.4); MONO # 0.3 (0.1-0.6); MONO % 6.6 % (1.7-9.3); PLATELET COUNT 176 K/mm3 (130-400); RED BLOOD COUNT 3.86 M/mm3 (4.10-5.30); REDCELL DISTRIBUTION WIDTH-CV 12.8 % (11.5-14.5)
[2020-05-02 07:42] LABS: HEMATOCRIT 34.7 % (37.0-47.0)
[2020-05-02 07:44] VITALS: BP 128/54; PULSE 57; TEMP 98.1
[2020-05-02 07:51] LABS: CALCIUM 7.9 mg/dL (8.4-10.2); CREATININE, serum 1.19 (0.52-1.25); POTASSIUM 3.8 mmol/L (3.4-5.0)
--- NOTE | 2020-05-02 08:22 | NUR ---
Kishor charted. PT in bed resting, states her left side is numb and right hand is numb and left eye is twitching with is very bothersome to her. denies pain, able to answer all orientation questions. When discussed MRI states she cannot have an MRI d/t bladder stimulator placed many years ago in [place]. INT to LW. Denies need, will continue to monitor.
--- NOTE | 2020-05-02 10:59 | NUR ---
Automatic Spooler Operator spoke with Elzbieta who advised Dr. Estrada has enacted patient's DPOA-HC which designates her son, Mehran. Paty advised that [facility] declined patient but that MC Allen from Dr. Estrada's office has been in contact with [facility] and [facility]. MC faxed both facilities referrals. MC also left a message for patient's son, Mehran. MC spoke with GIDEON Boothe about ordering a COVID test.
[2020-05-02 12:02] VITALS: BP 146/96; PULSE 59; TEMP 97.5
--- NOTE | 2020-05-02 12:38 | NUR ---
Pt eating lunch, needs assistance with placing meds in mouth and spills a lot of food. Discussed need to swab her nose and she states that she "just wants to get home to her cat, her therapy cat can take good care of her". Discussed that she may not be able to go home from hospital but may need to go somewhere like a rehab facility in the meantime. She states that "no I'm going home". Tried to call son and DPOA in ocmputer but no answer.
--- NOTE | 2020-05-02 16:24 | NUR ---
Janes from [facility] contacted this Town Clerk. She reports the team thinks the patient needs a higher level of care than they can provide and declined. MC faxed updates to [facility]. MC attempted to contact the patient's son, Mehran to follow up and provide an update on placement. Since there has been no acceptance so far so to fax referrals. Referrals faxed to Denice Gonsalez, [facility], [facility], [facility], [facility], and [facility] in [place]. MC contacted Bety HARVEY with Dr. North's office to provide the above update.
[2020-05-02 17:10] VITALS: BP 132/57; PULSE 60; TEMP 98
--- NOTE | 2020-05-02 17:35 | NUR ---
Pt has rested this afternooon, assisted with snacks, and changing channel for her, denies needs, will give bedside shift report to nightshift nurse who will resume care.
--- NOTE | 2020-05-02 19:14 | NUR ---
RECEIVED CHANGE OF SHIFT REPORT FROM DAY SHIFT NURSE.
[2020-05-02 20:30] VITALS: BP 124/50; PULSE 60; TEMP 97.3
[2020-05-03 00:29] VITALS: BP 123/57; PULSE 60; TEMP 97.6
[2020-05-03 02:39] LABS: FOLATE (FOLIC ACID) 8.9 ng/mL (7.0-31.4)
[2020-05-03 04:00] VITALS: BP 148/57; PULSE 66; TEMP 97.7
--- NOTE | 2020-05-03 07:13 | NUR ---
CHANGE OF SHIFT REPORT GIVEN TO DAY SHIFT NURSECARLTON.
[2020-05-03 07:45] LABS: BASO % 0.2 % (0.0-2.0); EOS # 0.2 (0.0-0.7); EOS % 5.2 % (0-4.0); GRAN # 2.4 (1.4-6.5); GRAN % 56.6 % (42.2-75.2); HEMATOCRIT 37.5 % (37.0-47.0); HEMOGLOBIN 12.5 g/dl (12.5-16.0); LYMPH # 1.4 (1.2-3.4); LYMPH % 32.3 % (20.0-51.0); MEAN CELL VOLUME 91 fl (80.0-100.0); MEAN CORPUSCULAR HEMOGLOBIN 30 pg (27.0-31.0); MEAN CORPUSCULAR HGB CONC 33 g/dl (33.0-37.0); MONO # 0.2 (0.1-0.6); MONO % 5.5 % (1.7-9.3); PLATELET COUNT 151 K/mm3 (130-400); RED BLOOD COUNT 4.11 M/mm3 (4.10-5.30); REDCELL DISTRIBUTION WIDTH-CV 12.8 % (11.5-14.5)
[2020-05-03 08:02] LABS: CALCIUM 8.3 mg/dL (8.4-10.2); CREATININE, serum 1.08 (0.52-1.25); POTASSIUM 4.3 mmol/L (3.4-5.0)
[2020-05-03 09:14] VITALS: BP 121/60; PULSE 68; TEMP 97.2
[2020-05-03 12:06] VITALS: BP 151/68; PULSE 61; TEMP 97.7
[2020-05-03 15:44] VITALS: BP 124/55; PULSE 77; TEMP 98.1
--- NOTE | 2020-05-03 18:00 | NUR ---
Patient has been doing better with transfers today. She is eating better but needs a lot of encouragement to feed herself. Denies nausea and pain. She was upset this morning about her breakfast not being hot enough. She keeps being confused about why she is here and why she can not go home. She walked better today with the walker. No other changes at this time. Call light within reach. Bed alarm on.
--- NOTE | 2020-05-03 18:51 | NUR ---
RECEIVED CHANGE OF SHIFT REPORT FROM DAY SHIFT NURSE.
[2020-05-03 21:10] VITALS: BP 125/51; PULSE 60; TEMP 97.3
[2020-05-04 00:21] VITALS: BP 130/57; PULSE 70; TEMP 97.6
[2020-05-04 04:57] VITALS: BP 138/48; PULSE 57; TEMP 98.1
--- NOTE | 2020-05-04 07:17 | NUR ---
CHANGE OF SHIFT REPORT GIVEN TO DAY SHIFT NURSEEYAD.
[2020-05-04 07:46] VITALS: BP 155/93; PULSE 80; TEMP 98
--- NOTE | 2020-05-04 08:50 | NUR ---
Patient in bed resting. Alert and oriented x 3. Assessment complete. Denies pain or needs at this Time. Assisted patient to sit up for breakfast.
[2020-05-04 11:46] VITALS: BP 132/70; PULSE 74; TEMP 98.2
--- NOTE | 2020-05-04 12:40 | NUR ---
Notified Agatha mayer of increased blood sugar, dosed patient per sliding scale
[2020-05-04] MEDS ORDERED: NEURONTIN100 MG/CAP PO (14:04)
[2020-05-04] MEDS ORDERED: SINEMET 25/101 UDTAB PO (14:05)
[2020-05-04] MEDS ORDERED: JANUVIA 100MG100 MG PO (14:07)
--- NOTE | 2020-05-04 14:17 | NUR ---
Rechecked blood sugar at 348, notified Agatha Paulson additional dose given per sliding scale.
[2020-05-04 15:34] VITALS: BP 132/70; PULSE 74; TEMP 98.2
--- NOTE | 2020-05-04 17:25 | NUR ---
Patient out by wheelchair to [facility], son at bedside. Report called to Gisela at [facility].
--- NOTE | 2020-05-04 17:40 | NUR ---
Photographic Platemaker spoke with Sesar at [facility] and they can accept today. MC then contacted [facility] at Dr. Estrada's office and obtained copies of neuro psych report, report and examination from October 2019, and Dr. Estrada's order that patient's DPOA-HC be enacted, giving patient's son, Mehran decision making capability. These documents were reviewed by Hospitalist who then put in orders for SNF. MC placed these documents in patient's chart. MC contacted patient's son, Mehran who is in agreement with patient discharging to [facility] today. MC advised Candice, Nursing Manufacturers Agent approved him to come in to assist with transition to [facility]. MC set up transport time with Sesar at [facility] for 1600 and Mehran states he will come in. Upon Mehran's arrival, MC and Mehran met with patient who states she wants to go home and was upset about going to [facility]. Mehran reminded patient again that she is not at a place right now that she can go home. Mehran then reminded patient that she has been struggling to care for herself and that she calls EMS multiple times a day, but patient doesn't remember this. Mehran advised patient that as her DPOA-HC he has decided that she will go to [facility] for a skilled stay. MC faxed discharge orders to [facility]. No additional needs at this time.
== END 2020-05-04 17:26 | DRG 683 ==
LOC: COL.ER 17:27 → JCC 19:00
PROVIDERS: Family Medicine; Nurse Practitioner; Nurse Practitioner Family; Physician Assistant
DX: N17.9 Acute kidney failure, unspecified (principal); E87.1 Hypo-osmolality and hyponatremia; E87.2 Acidosis; E86.0 Dehydration; F03.90 Unspecified dementia, unspecified severity, without behavioral disturbance, psychotic disturbance, mood disturbance, and anxiety; G56.03 Carpal tunnel syndrome, bilateral upper limbs; E11.65 Type 2 diabetes mellitus with hyperglycemia; E11.41 Type 2 diabetes mellitus with diabetic mononeuropathy; B95.7 Other staphylococcus as the cause of diseases classified elsewhere; G20 Parkinson's disease; E78.5 Hyperlipidemia, unspecified; I48.91 Unspecified atrial fibrillation; I25.10 Atherosclerotic heart disease of native coronary artery without angina pectoris; F31.9 Bipolar disorder, unspecified; Z20.822 Contact with and (suspected) exposure to COVID-19; E03.9 Hypothyroidism, unspecified; Z86.73 Personal history of transient ischemic attack (TIA), and cerebral infarction without residual deficits; Z90.49 Acquired absence of other specified parts of digestive tract; Z90.710 Acquired absence of both cervix and uterus; Z87.891 Personal history of nicotine dependence
CPT/HCPCS: 99231-AI; 99232-AI; 99239; G0378; J1815; J2270; J7030

== ENCOUNTER → 2020-06-10 | Outpatient (CLI) | payer MEDICARE, BC ==
[~2020-06-10] MED LIST changes: +ASPIRIN 81M81 MG/TA2 PO; +DEPAKOTE ER 25250 MG PO; +DEPAKOTE ER 50500 MG PO; +GLUCOTROL 5M5 MG/TAB PO; +JANUVIA 100MG100 MG PO; +JANUVIA50 MG PO; +LITHIUM 30300 MG/CAP PO; +PRINIVIL20 MG PO; +VOLTAREN GEL 1%1 TU TP; +ZOFRAN ODT4 MG PO
[2020-06-10 13:32] LABS: BASO % 0.2 % (0.0-2.0); EOS # 0.2 (0.0-0.7); EOS % 4.1 % (0-4.0); GRAN # 3.3 (1.4-6.5); GRAN % 64.1 % (42.2-75.2); HEMOGLOBIN 12.5 g/dl (12.5-16.0); LYMPH # 1.2 (1.2-3.4); LYMPH % 23.7 % (20.0-51.0); MEAN CELL VOLUME 93 fl (80.0-100.0); MEAN CORPUSCULAR HEMOGLOBIN 31 pg (27.0-31.0); MEAN CORPUSCULAR HGB CONC 33 g/dl (33.0-37.0); MEAN PLATELET VOLUME 10.8 fl (7.4-10.4); MONO # 0.4 (0.1-0.6); MONO % 7.3 % (1.7-9.3); PLATELET COUNT 180 K/mm3 (130-400); RED BLOOD COUNT 4.08 M/mm3 (4.10-5.30); REDCELL DISTRIBUTION WIDTH-CV 13.3 % (11.5-14.5)
[2020-06-10 14:06] LABS: ALBUMIN 3.8 gm/dL (3.5-5.0); BILIRUBIN,TOTAL 0.3 mg/dL (0.0-1.0); CALCIUM 9.1 mg/dL (8.4-10.2); CREATININE, serum 1.06 (0.52-1.25); POTASSIUM 4.1 mmol/L (3.4-5.0); TOTAL PROTEIN 6.6 gm/dL (6.4-8.2)
[2020-06-10 14:11] LABS: VALPROIC ACID (DEPAKENE) 58.7 ug/mL (50.0-100.0)
== END ==
LOC: ZLAB.STJ 13:12
PROVIDERS: Family Medicine
DX: D63.1 Anemia in chronic kidney disease (principal); N18.2 Chronic kidney disease, stage 2 (mild); F31.32 Bipolar disorder, current episode depressed, moderate

== ENCOUNTER → 2020-07-19 | Outpatient (CLI) | payer MEDICARE, BC ==
[2020-07-19 11:04] LABS: BASO % 0.6 % (0.0-2.0); EOS # 0.2 (0.0-0.7); EOS % 5.2 % (0-4.0); GRAN # 2.2 (1.4-6.5); GRAN % 48.3 % (42.2-75.2); HEMATOCRIT 40.9 % (37.0-47.0); LYMPH # 1.7 (1.2-3.4); LYMPH % 36.6 % (20.0-51.0); MEAN CELL VOLUME 94 fl (80.0-100.0); MEAN CORPUSCULAR HEMOGLOBIN 30 pg (27.0-31.0); MEAN CORPUSCULAR HGB CONC 32 g/dl (33.0-37.0); MEAN PLATELET VOLUME 11.1 fl (7.4-10.4); MONO # 0.4 (0.1-0.6); MONO % 9.1 % (1.7-9.3); PLATELET COUNT 186 K/mm3 (130-400); RED BLOOD COUNT 4.36 M/mm3 (4.10-5.30); REDCELL DISTRIBUTION WIDTH-CV 12.7 % (11.5-14.5)
[2020-07-19 11:11] LABS: BILIRUBIN,TOTAL 0.2 mg/dL (0.0-1.0); CALCIUM 8.8 mg/dL (8.4-10.2); CHOLESTEROL RISK RATIO 1.8; CREATININE, serum 0.99 (0.52-1.25); MAGNESIUM 2.5 mg/dL (1.6-2.3); POTASSIUM 4.6 mmol/L (3.4-5.0); TOTAL PROTEIN 7.2 gm/dL (6.4-8.2)
[2020-07-19 11:40] LABS: THYROID STIMULATING HORMONE 1.55 uIU/mL (0.465-4.680)
== END ==
LOC: ZLAB.STJ 10:12
PROVIDERS: Internal Medicine Adult Congenital Heart Disease
DX: D63.1 Anemia in chronic kidney disease (principal); I12.9 Hypertensive chronic kidney disease with stage 1 through stage 4 chronic kidney disease, or unspecified chronic kidney disease; E11.69 Type 2 diabetes mellitus with other specified complication; E78.5 Hyperlipidemia, unspecified; N18.2 Chronic kidney disease, stage 2 (mild); E11.65 Type 2 diabetes mellitus with hyperglycemia; E03.9 Hypothyroidism, unspecified; I25.10 Atherosclerotic heart disease of native coronary artery without angina pectoris; I48.0 Paroxysmal atrial fibrillation; I48.92 Unspecified atrial flutter

== ENCOUNTER 2020-09-06 00:24 | Observation (INO) | payer MEDICARE, BC ==
[~2020-09-06] VITALS: Ht 170.2 cm; Wt 81.8 kg
[~2020-09-06 00:24] MED LIST changes: -DEPAKOTE ER 25250 MG PO; -PRINIVIL20 MG PO; -ZOFRAN ODT4 MG PO
[2020-09-06 01:10] LABS: COLLECTION METHOD CLEAN CATCH
[2020-09-06 01:14] LABS: BASO % 0.2 % (0.0-2.0); EOS # 0.3 (0.0-0.7); EOS % 5.5 % (0-4.0); GRAN # 2.9 (1.4-6.5); GRAN % 64.9 % (42.2-75.2); HEMOGLOBIN 11.9 g/dl (12.5-16.0); LYMPH # 1.1 (1.2-3.4); LYMPH % 23.2 % (20.0-51.0); MEAN CELL VOLUME 87 fl (80.0-100.0); MEAN CORPUSCULAR HEMOGLOBIN 30 pg (27.0-31.0); MEAN CORPUSCULAR HGB CONC 34 g/dl (33.0-37.0); MEAN PLATELET VOLUME 10.7 fl (7.4-10.4); MONO # 0.3 (0.1-0.6); PLATELET COUNT 186 K/mm3 (130-400); RED BLOOD COUNT 4.02 M/mm3 (4.10-5.30); REDCELL DISTRIBUTION WIDTH-CV 12.6 % (11.5-14.5)
[2020-09-06 01:15] LABS: HEMATOCRIT 34.8 % (37.0-47.0)
[2020-09-06 01:26] LABS: PH 5 (5-8); SQUAMOUS EPITHELIAL None Seen /hpf; URINE APPEARANCE Clear; URINE BACTERIA None Seen /hpf; URINE BILIRUBIN Negative (NEGATIVE); URINE BLOOD Negative (NEGATIVE); URINE COLOR Straw; URINE GLUCOSE 1+ (NEGATIVE); URINE KETONE Negative (NEGATIVE); URINE LEUKOCYTE ESTERASE Negative (NEGATIVE); URINE NITRATE Negative (NEGATIVE); URINE PROTEIN(semi-quant) Negative (NEGATIVE); URINE RBC 0-2 /hpf; URINE UROBILINOGEN Negative (NEGATIVE)
[2020-09-06 01:28] LABS: ALANINE AMINOTRANSFERASE 7 U/L (4-34); ALBUMIN 3.9 gm/dL (3.5-5.0); ALKALINE PHOSPHATASE 98 U/L (50-136); ANION GAP 8 mmol/L (7-16); AST,SGOT 24 U/L (15-37); BILIRUBIN,TOTAL 0.4 mg/dL (0.0-1.0); BLOOD UREA NITROGEN 31 mg/dL (7-17); C-REACTIVE PROTEIN 0.6 mg/dL (0.0-0.9); CALCIUM 8.5 mg/dL (8.4-10.2); CARBON DIOXIDE 21 mmol/L (22-30); CHLORIDE 105 mmol/L (98-107); CREATININE, serum 0.85 (0.52-1.25); GLUCOSE 260 mg/dL (74-106); LIPASE 326 U/L (23-300); POTASSIUM 4.3 mmol/L (3.4-5.0); SODIUM 134 mmol/L (137-145); TOTAL PROTEIN 7.1 gm/dL (6.4-8.2)
[2020-09-06 01:41] LABS: TROPONIN-I < 0.012 ng/mL (0.000-0.035)
[2020-09-06 05:40] VITALS: BP 164/43; PULSE 54; TEMP 97.4
--- NOTE | 2020-09-06 05:58 | NUR ---
PATIENT WAS RECEIVED FROM ED ON A WHEELCHAIR.ON RA.REPORTS A HEADACHE BUT REFUSES MEDS PRESCRIBED.ASSESSMENT DONE.NO OTHER NEEDS AT THIS TIME.
--- NOTE | 2020-09-06 06:10 | NUR ---
PATIENT SAYS SHE FORGOT HER MED LIST AND NOT WILLING TO TALK RIGHT NOW.
[2020-09-06] MEDS ORDERED: DEPAKOTE ER 25250 MG PO (06:48)
[2020-09-06 08:53] VITALS: BP 142/44; PULSE 50; TEMP 98.2
--- NOTE | 2020-09-06 09:30 | NUR ---
Patient alert and oriented, answers questions appropriately. See assessment. No c/o pain or discomfort. Patient refused medications except for levothyroxine this am. Adamantly refused any other medications, including insulin. Educated patient on importance of taking medications at scheduled times. Attempted x3 for patient to take medications, continues to refuse. Patient requests no one "bother" me, "I will let you know when I need you". Patient refuses cares, vital signs and therapies. Will continue to attempt medications and cares. No other c/o at this time.
[2020-09-06 11:24] VITALS: BP 155/57; PULSE 53; TEMP 97.6
--- NOTE | 2020-09-06 12:09 | NUR ---
Late entry: Patient IV to RAC infiltrated with NS flush. Patient has refused restart, or IV to be dc'd several times this morning.
--- NOTE | 2020-09-06 12:52 | NUR ---
First visit from the aviation electrical technician. Patient was asleep. Power Press Operator prayed for patient while standing outside their door.
[2020-09-06 16:55] VITALS: BP 134/63; PULSE 60; TEMP 98.1
--- NOTE | 2020-09-06 17:15 | NUR ---
Tumbler Drier Operator met with patient to discuss discharge plan. Patient lives alone in [place] and sees Dr. Raza for primary care. Patient obtains medications through the [facility]. Patient has a cane and four wheeled walker at home. Patient reports that she has been independent at home and plans to return there upon discharge. Patient has DPOA-HC in EMR which designate her son, Mehran (ph#[phone]). SW discussed Home Health services with patient who states she does not want any HH. Patient states the only thing she would want is a bath aide, and since [facility] advised Medicare won't cover that services, she doesn't want HH. SW discussed HH PT/OT and patient states she doesn't need therapy. SW attempted to contact patient's son, Mehran and left a message. MC spoke with APS SW, Radha Masterson who advised they closed patient's case last week after they visited her apartment. Discharge Plan: Home
[2020-09-06 19:48] VITALS: BP 136/61; PULSE 71; TEMP 98
[2020-09-06 23:46] VITALS: BP 140/48; PULSE 50; TEMP 98
--- NOTE | 2020-09-07 00:29 | NUR ---
Patient assessed around 2200. Alert and oriented x 4, and able to make needs known. Denies having pain and discomfort. Peripheral INT to right AC. Refusing fluids. Denies having SOB and dyspnea. LS CTA. Respirations even and unlabored. HRR. Capillary refill less than 3 seconds. Non-tenting skin turgor. BSAx4. Abdomen soft and non-tender. 2+ edema BLE. Skin dry and flaky. Denies having any questions, needs, or concerns at this time. Resting in bed with call light within reach.
--- NOTE | 2020-09-07 02:03 | NUR ---
Patient requested PRN medication for generalized pain. Dixie patient Acetaminophen, but patient stated that she could not take it due to the effects on her heart, according to her balloon design printer. Called placed to GIDEON Elizabeth. New order received for PRN Motrin, and given at this time.
[2020-09-07 04:06] VITALS: BP 137/51; PULSE 62; TEMP 97.9
--- NOTE | 2020-09-07 05:18 | NUR ---
Patient has not had any further complaints of pain or discomfort since receiving PRN Motrin. Has been calling for assistance with going to the bathroom. Voices no questions, needs, or concerns at this time.
[2020-09-07 07:41] VITALS: BP 146/83; PULSE 43; TEMP 97.4
[2020-09-07] MEDS ORDERED: ZOFRAN ODT4 MG PO (08:58)
--- NOTE | 2020-09-07 09:15 | NUR ---
Patient alert and oriented, answers questions appropriately. See assessment. No c/o chest pain or pressure. No c/o weakness or fatigue. Refuses all medications this a.m. States she will take them when she wants, and will let this nurse know when that time comes. No other c/o at this time.
--- NOTE | 2020-09-07 11:50 | NUR ---
Discharge instructions reviewed with patient, verbalized understanding. Discharged via wheelchair to auto/home with family at 1109.
--- NOTE | 2020-09-07 14:34 | NUR ---
Instructor Product Inspection attended clinical rounds with the team and patient to discharge home today. Patient still does not want home health services at this time. Patient states she would be interested in a bath aide, but does not want to pay for this service. MC contacted patient's son, Mehran who advised he will be in to sweet pickled fruit maker patient today. MC discussed private duty services with Mehran and gave him the name of two agencies that serve [place]. MC contacted LUANN Bueno to notify her that patient was admitted and will discharge today.
== END 2020-09-07 11:09 | disposition home or self-care (01) ==
LOC: COL.ER 00:24 → SURG 03:06 → COL.ER 05:30 → SURG 09-07 11:09
PROVIDERS: Emergency Medicine; ADMIT Student in an Organized Health Care Education/Training Program
DX: R11.2 Nausea with vomiting, unspecified (principal); R42 Dizziness and giddiness; R53.1 Weakness; I69.328 Other speech and language deficits following cerebral infarction; I69.354 Hemiplegia and hemiparesis following cerebral infarction affecting left non-dominant side; I69.390 Apraxia following cerebral infarction; E11.42 Type 2 diabetes mellitus with diabetic polyneuropathy; E11.22 Type 2 diabetes mellitus with diabetic chronic kidney disease; I16.0 Hypertensive urgency; I12.9 Hypertensive chronic kidney disease with stage 1 through stage 4 chronic kidney disease, or unspecified chronic kidney disease; N18.30 Chronic kidney disease, stage 3 unspecified; G20 Parkinson's disease; F02.80 Dementia in other diseases classified elsewhere, unspecified severity, without behavioral disturbance, psychotic disturbance, mood disturbance, and anxiety; R53.81 Other malaise; R00.1 Bradycardia, unspecified; E87.1 Hypo-osmolality and hyponatremia; E78.5 Hyperlipidemia, unspecified; I48.91 Unspecified atrial fibrillation; I25.10 Atherosclerotic heart disease of native coronary artery without angina pectoris; F31.9 Bipolar disorder, unspecified; E03.9 Hypothyroidism, unspecified; F41.9 Anxiety disorder, unspecified; R60.0 Localized edema; Z79.899 Other long term (current) drug therapy; Z79.02 Long term (current) use of antithrombotics/antiplatelets; Z87.891 Personal history of nicotine dependence; Z95.818 Presence of other cardiac implants and grafts; Z90.49 Acquired absence of other specified parts of digestive tract; Z79.84 Long term (current) use of oral hypoglycemic drugs; Z79.890 Hormone replacement therapy; Z79.82 Long term (current) use of aspirin
CPT/HCPCS: G0378; J0360; J1815; J7030; J7120

== ENCOUNTER 2020-10-01 01:45 | Emergency (ER) | payer MEDICARE, BC ==
[~2020-10-01] VITALS: Ht 152.4 cm; Wt 80.5 kg
[~2020-10-01 01:45] MED LIST changes: +DEPAKOTE ER 25250 MG PO; +ZOFRAN ODT4 MG PO
[2020-10-01 01:47] VITALS: TEMP 98.3
[2020-10-01 02:02] LABS: BASO % 0.2 % (0.0-2.0); EOS # 0.2 (0.0-0.7); EOS % 2.8 % (0-4.0); GRAN # 4.1 (1.4-6.5); GRAN % 71.1 % (42.2-75.2); HEMATOCRIT 34.9 % (37.0-47.0); HEMOGLOBIN 11.5 g/dl (12.5-16.0); LYMPH # 1.1 (1.2-3.4); LYMPH % 19.5 % (20.0-51.0); MEAN CELL VOLUME 90 fl (80.0-100.0); MEAN CORPUSCULAR HEMOGLOBIN 30 pg (27.0-31.0); MEAN CORPUSCULAR HGB CONC 33 g/dl (33.0-37.0); MONO # 0.4 (0.1-0.6); MONO % 6.2 % (1.7-9.3); PLATELET COUNT 169 K/mm3 (130-400); RED BLOOD COUNT 3.87 M/mm3 (4.10-5.30)
[2020-10-01 02:13] LABS: ALANINE AMINOTRANSFERASE 6 U/L (4-34); ALBUMIN 4.2 gm/dL (3.5-5.0); ALKALINE PHOSPHATASE 97 U/L (50-136); ANION GAP 9 mmol/L (7-16); AST,SGOT 20 U/L (15-37); BILIRUBIN,TOTAL 0.5 mg/dL (0.0-1.0); BLOOD UREA NITROGEN 43 mg/dL (7-17); CALCIUM 8.6 mg/dL (8.4-10.2); CARBON DIOXIDE 23 mmol/L (22-30); CHLORIDE 103 mmol/L (98-107); CREATINE KINASE 78 U/L (30-135); CREATININE, serum 1.22 (0.52-1.25); GLUCOSE 271 mg/dL (74-106); LIPASE 894 U/L (23-300); POTASSIUM 4.3 mmol/L (3.4-5.0); SODIUM 135 mmol/L (137-145); TOTAL PROTEIN 7.2 gm/dL (6.4-8.2)
[2020-10-01 02:45] LABS: TROPONIN-I < 0.012 ng/mL (0.000-0.035)
[2020-10-01 05:04] LABS: COLLECTION METHOD CATHETER
[2020-10-01] MEDS ORDERED: ZOFRAN ODT4 MG PO (05:09)
[2020-10-01 05:13] LABS: MUCOUS Present /lpf; PH 7 (5-8); SQUAMOUS EPITHELIAL 0-2 /hpf; URINE APPEARANCE Clear; URINE BACTERIA None Seen /hpf; URINE BILIRUBIN Negative (NEGATIVE); URINE BLOOD Negative (NEGATIVE); URINE COLOR Straw; URINE GLUCOSE Negative (NEGATIVE); URINE KETONE Negative (NEGATIVE); URINE LEUKOCYTE ESTERASE Negative (NEGATIVE); URINE NITRATE Negative (NEGATIVE); URINE PROTEIN(semi-quant) Negative (NEGATIVE); URINE RBC 0-2 /hpf; URINE UROBILINOGEN Negative (NEGATIVE); URINE WBC None Seen /hpf
[2020-10-01 05:18] VITALS: BP 132/70; PULSE 78
== END 2020-10-01 05:18 | disposition home or self-care (01) ==
LOC: COL.ER 01:45
PROVIDERS: Emergency Medicine
DX: R07.89 Other chest pain (principal); R11.2 Nausea with vomiting, unspecified; R10.33 Periumbilical pain; R42 Dizziness and giddiness; Z86.73 Personal history of transient ischemic attack (TIA), and cerebral infarction without residual deficits; Z90.710 Acquired absence of both cervix and uterus; Z90.49 Acquired absence of other specified parts of digestive tract; Z79.02 Long term (current) use of antithrombotics/antiplatelets
CPT/HCPCS: J2270; J2405; J2765; J7030; Q9967

== ENCOUNTER 2020-11-01 17:30 | Emergency (ER) | payer MEDICARE, BC ==
[2020-11-01 17:34] VITALS: TEMP 97.9
[2020-11-01 21:29] VITALS: BP 175/72; PULSE 50
== END 2020-11-01 21:30 | disposition home or self-care (01) ==
LOC: COL.ER 17:30
DX: M79.605 Pain in left leg (principal); F03.90 Unspecified dementia, unspecified severity, without behavioral disturbance, psychotic disturbance, mood disturbance, and anxiety; I10 Essential (primary) hypertension; E78.5 Hyperlipidemia, unspecified; F31.9 Bipolar disorder, unspecified; Z86.73 Personal history of transient ischemic attack (TIA), and cerebral infarction without residual deficits; Z79.82 Long term (current) use of aspirin; Z79.899 Other long term (current) drug therapy

== ENCOUNTER 2020-11-02 17:16 | Observation (INO) | payer MEDICARE, BC ==
[~2020-11-02] VITALS: Ht 167.6 cm; Wt 91.0 kg
[2020-11-02 17:52] LABS: COLLECTION METHOD CLEAN CATCH
[2020-11-02 17:53] LABS: BASO % 0.4 % (0.0-2.0); EOS % 0.4 % (0-4.0); GRAN # 4.6 (1.4-6.5); GRAN % 81.1 % (42.2-75.2); HEMATOCRIT 38.2 % (37.0-47.0); LYMPH # 0.7 (1.2-3.4); LYMPH % 12.6 % (20.0-51.0); MEAN CELL VOLUME 87 fl (80.0-100.0); MEAN CORPUSCULAR HEMOGLOBIN 30 pg (27.0-31.0); MEAN CORPUSCULAR HGB CONC 34 g/dl (33.0-37.0); MEAN PLATELET VOLUME 10.2 fl (7.4-10.4); MONO # 0.3 (0.1-0.6); MONO % 5.1 % (1.7-9.3); PLATELET COUNT 208 K/mm3 (130-400); RED BLOOD COUNT 4.37 M/mm3 (4.10-5.30); REDCELL DISTRIBUTION WIDTH-CV 12.5 % (11.5-14.5)
[2020-11-02 18:02] LABS: MUCOUS Present /lpf; PH 7 (5-8); SQUAMOUS EPITHELIAL None Seen /hpf; URINE APPEARANCE Clear; URINE BACTERIA None Seen /hpf; URINE BILIRUBIN Negative (NEGATIVE); URINE BLOOD 1+ (NEGATIVE); URINE COLOR Yellow; URINE GLUCOSE 3+ (NEGATIVE); URINE KETONE Trace (NEGATIVE); URINE LEUKOCYTE ESTERASE Negative (NEGATIVE); URINE NITRATE Negative (NEGATIVE); URINE PROTEIN(semi-quant) 3+ (NEGATIVE); URINE UROBILINOGEN Negative (NEGATIVE)
[2020-11-02 18:16] LABS: ALBUMIN 3.5 gm/dL (3.5-5.0); BILIRUBIN,TOTAL 0.7 mg/dL (0.0-1.0); CREATININE, serum 0.99 (0.52-1.25); POTASSIUM 4.6 mmol/L (3.4-5.0); TOTAL PROTEIN 6.6 gm/dL (6.4-8.2)
[2020-11-02 18:32] LABS: C-REACTIVE PROTEIN 0.7 mg/dL (0.0-0.9)
[2020-11-02 20:07] LABS: MAGNESIUM 1.9 mg/dL (1.6-2.3); PHOSPHOROUS 4.1 mg/dL (2.5-4.5)
[2020-11-02 20:22] LABS: TROPONIN-I 0.035 ng/mL (0.000-0.035)
[2020-11-02 20:40] LABS: TSH w REFLEX 1.76 uIU/mL (0.465-4.680)
[2020-11-02 22:01] LABS: TRICYCLIC ANTIDEPRESS URINE NEGATIVE
--- NOTE | 2020-11-02 22:36 | NUR ---
Arrived on unit, patient is confused, non cooperative, redirection necessary, telemetry in use, call negrete w/i reach, placed close to nursing station, fall risk in use, unable to answer most questions.
[2020-11-02 22:56] VITALS: BP 147/37; PULSE 52; TEMP 97.8
[2020-11-03 00:07] LABS: C-REACTIVE PROTEIN 0.7 mg/dL (0.0-0.9)
[2020-11-03 00:08] LABS: ALCOHOL(ethanol),MEDICAL < 10 mg/dL
[2020-11-03 00:23] VITALS: BP 176/42; PULSE 51; TEMP 98
[2020-11-03 00:35] LABS: VALPROIC ACID (DEPAKENE) < 10.0 ug/mL (50.0-100.0)
--- NOTE | 2020-11-03 03:09 | NUR ---
Patient refused lab draw x 3, cursing at staff. Notified Ida Rouse
--- NOTE | 2020-11-03 05:23 | NUR ---
Patient refusing vitals, blood sugar, labs- Ida Rouse notified, no new orders
[2020-11-03 08:08] VITALS: BP 159/42; PULSE 92; TEMP 98.1
[2020-11-03 12:06] VITALS: BP 159/59; PULSE 57; TEMP 97.8
--- NOTE | 2020-11-03 15:32 | NUR ---
SW attempted to meet with the patient. The patient was asleep and did not wake. SW contacted the patient's son, Mehran (ph#[phone]), to discuss discharge plan. The patient lives alone in [place]. Mehran reports that the patient has been independent with ADLs and has a cane. She is not receiving any home health services. The patient's PCP is Dr. Lacy Raza and she receives her medications from [facility]. The patient's DPOA-HC is in EMR and it designates Mehran. Mehran reports that he knows the patient lives alone and isolated, but that is the way the patient wants to live. He states that he is not going to drag her out of her home. MC discussed home health services. Mehran reports that he thinks home health would be a good idea, but that the patient will need to decide if she wants it or not. PT/OT have been ordered. SW to continue to follow. The patient was found by EMS, laying in her own urine. MC made an APS report. Intake ID#[id number]. *Discharge plan: home. Possibly home health*
[2020-11-03 15:49] LABS: BASO % 0.5 % (0.0-2.0); CALCIUM 8.6 mg/dL (8.4-10.2); CREATININE, serum 1.19 (0.52-1.25); EOS # 0.1 (0.0-0.7); EOS % 2.5 % (0-4.0); GRAN # 3.8 (1.4-6.5); GRAN % 67.7 % (42.2-75.2); HEMATOCRIT 37.5 % (37.0-47.0); HEMOGLOBIN 12.5 g/dl (12.5-16.0); LYMPH # 1.2 (1.2-3.4); LYMPH % 22.2 % (20.0-51.0); MEAN CELL VOLUME 89 fl (80.0-100.0); MEAN CORPUSCULAR HEMOGLOBIN 30 pg (27.0-31.0); MEAN CORPUSCULAR HGB CONC 33 g/dl (33.0-37.0); MEAN PLATELET VOLUME 10.1 fl (7.4-10.4); MONO # 0.4 (0.1-0.6); MONO % 6.9 % (1.7-9.3); PLATELET COUNT 210 K/mm3 (130-400); POTASSIUM 3.9 mmol/L (3.4-5.0); RED BLOOD COUNT 4.22 M/mm3 (4.10-5.30); REDCELL DISTRIBUTION WIDTH-CV 12.7 % (11.5-14.5)
[2020-11-03 16:52] VITALS: BP 170/46; PULSE 72; TEMP 97.8
--- NOTE | 2020-11-03 16:52 | NUR ---
Pt has been sleeping most of day, awakens to voice and sternal rub. Pt has been uncooperative with cares and refused meds throughout day. Pt did awaken to eat late lunch this afternoon and then went back to sleep. pt will answer one question and then not the next. Pt is partially confused.
[2020-11-03 23:26] VITALS: BP 133/45; PULSE 36; TEMP 97.6
[2020-11-04] VITALS (7 sets, daily range): BP systolic 103–183; BP diastolic 40–74; PULSE 46–84; TEMP 97.5–98.9
[2020-11-04 07:04] LABS: HEMATOCRIT 34.5 % (37.0-47.0); HEMOGLOBIN 11.6 g/dl (12.5-16.0); MEAN CELL VOLUME 89 fl (80.0-100.0); MEAN CORPUSCULAR HEMOGLOBIN 30 pg (27.0-31.0); MEAN CORPUSCULAR HGB CONC 34 g/dl (33.0-37.0); MEAN PLATELET VOLUME 10.7 fl (7.4-10.4); PLATELET COUNT 177 K/mm3 (130-400); REDCELL DISTRIBUTION WIDTH-CV 12.7 % (11.5-14.5)
[2020-11-04 07:15] LABS: CALCIUM 8.1 mg/dL (8.4-10.2); CREATININE, serum 1.18 (0.52-1.25); POTASSIUM 3.7 mmol/L (3.4-5.0)
--- NOTE | 2020-11-04 08:08 | NUR ---
PT HEART RATE IN THE 40'S. CARDIOLOGY PAGED. SPOKE TO GIDEON RODRIGUEZ, ORDER GIVEN TO HOLD PT'S LOPRESSOR THIS A.M. AND THEY WILL BE IN TO SEE HER SOON. PT ALLOWED FOR HER VITAL SIGNS TO BE TAKEN EXCEPT HE TEMPERATURE. PT REFUSES TO ANSWER QUESTIONS ABOUT HOW SHE IS FEELING, BUT ASK FOR HER BREAKFAST. WILL COMFORT MEASURES IN PLACE. WILL CONTINUE TO MONITOR.
--- NOTE | 2020-11-04 09:37 | NUR ---
SW attended clinical rounds. The patient is awake and and answering questions today. SW followed up with the patient to review d/c plan and discussed post-acute rehab. The patient reports that she has been to a SNF before and will never go back. The patient states that she is going home upon discharge. SW discussed home health services and it's benefits. The patient refused home health. She reports that she does not need any of their services. *Discharge plan: home*
--- NOTE | 2020-11-04 10:43 | NUR ---
Initial visit; Patient thanked [facility] for looking in on her and offering God's blessings.
--- NOTE | 2020-11-04 14:57 | NUR ---
Spoke with Dr. Shiva fisher for EEG to be done Saturday.
--- NOTE | 2020-11-04 18:53 | NUR ---
PT REFUSED MOST OF THE CARE OFFERED TO HER TODAY. HER SON WAS AT BEDSIDE THIS MORNING AND SHE AGREED TO TAKE HER MORNING MEDS. PT REFUSED HER NEURO CHECKS. RISK AND BENEFITS EXPLAINED AND THE PT STILL REFUSES.
--- NOTE | 2020-11-04 21:00 | NUR ---
PATIENT IS CALM IN THE ROOM.AOX4 BUT FORGETFUL.DECLINED TO EAT DINNER.BS 193.NIGHT PROVIDER INFORMED.PLAN HOLD NOVOLOG SC AND GIVE LEVEMIR.SAME DONE.PATIENT DENIES PAIN.NO OTHER NEEDS AT THIS TIME.
[2020-11-05 04:38] VITALS: BP 163/49; PULSE 46; TEMP 97.4
--- NOTE | 2020-11-05 06:03 | NUR ---
PATIENT HAD A CALM NIGHT.AOX4,FORGETFUL.PATIENT HAS BEEN COOPERATIVE WHEN RECEIVING CARES.TOOK MEDICATION WELL.SAFETY MEASURES MAINTAINED.NO OTHER NEEDS AT THIS TIME
[2020-11-05 07:33] LABS: HEMOGLOBIN 11.8 g/dl (12.5-16.0); MEAN CELL VOLUME 89 fl (80.0-100.0); MEAN CORPUSCULAR HEMOGLOBIN 30 pg (27.0-31.0); MEAN CORPUSCULAR HGB CONC 33 g/dl (33.0-37.0); MEAN PLATELET VOLUME 10.2 fl (7.4-10.4); PLATELET COUNT 186 K/mm3 (130-400); RED BLOOD COUNT 3.99 M/mm3 (4.10-5.30); REDCELL DISTRIBUTION WIDTH-CV 12.5 % (11.5-14.5)
[2020-11-05 07:42] LABS: HEMATOCRIT 35.5 % (37.0-47.0)
[2020-11-05 07:43] LABS: CALCIUM 8.3 mg/dL (8.4-10.2); CREATININE, serum 1.17 (0.52-1.25); MAGNESIUM 2.2 mg/dL (1.6-2.3); POTASSIUM 3.5 mmol/L (3.4-5.0)
--- NOTE | 2020-11-05 17:15 | NUR ---
ARRIVES TO PATIENTS ROOM AT APPROXIMATELY 1640 AND IMMEDIATELY BEGINS TO DRESS PATIENT AND TELLS HIM " I AM GETTING YOU OUT OF HERE NOW. I DONT WANT YOU GOING SOMEWHERE YOU CANT SEE FAMILY, YOU ARE GOING TO GET WORSE", PT DEMONSTRATED RELUCTANCY AND WAS UNCOOPERATIVE, PT REMAINED DISORIENTED. THIS NURSE ASSISTED THE PT'S IN DRESSING HIM AND WAS ABLE TO GET DISCHARGE PAPERWORK SIGNED. PT'S "KARUNA" ALSO EXPRESSED BEING UPSET AT THE DOCTOR, WHEN THIS NURSE INQUIRED TO WHY KARUNA DID NOT REPLY. THIS NURSE ASKED KARUNA IF THERE WAS ANYTHING SHE COULD DO TO HELP HER MAKE THE SITUATION BETTER SHE REPLIED "NO, I AM TAKING HIM HOME." PT ESCORTED OUT OF MEDICAL FLOOR WITH AT HIS SIDE VIA WHEELCHAIR AT 1700. THIS PATIENT DID NOT HAVE IV INT TO DC, THIS PATIENT DID NOT HAVE TELEMETRY ON TO DC.
[2020-11-05 17:32] VITALS: BP 118/75; PULSE 43; TEMP 97.7
--- NOTE | 2020-11-05 18:41 | NUR ---
PT CURRENTLY REMAINS A/OX4 WITH SOME EPISODES OF CONFUSION AND MILD ANXIETY. 02 REMAINS ROOM AIR, VSS. PT WORKED WITH PT/OT TODAY AND WAS ABLE TO ABLE TO AMBULATE AND EXCERCISE ALL EXTREMITIES. ALL MEDICATIONS ADMINISTERED ORDERED. PT HAD ONE BM TODAY AND WAS ALSO ABLE TO SHOWER. PT IS CURRENTLY IN BED EATING SUPPER. PT EXPRESSE NO ADDITIONAL NEEDS AT THIS TIME. CALL LIGHT WITHIN REACH.
[2020-11-05 20:32] VITALS: BP 172/64; PULSE 55
[2020-11-06] VITALS (7 sets, daily range): BP systolic 95–167; BP diastolic 37–108; PULSE 46–68; TEMP 97.5–98.6
--- NOTE | 2020-11-06 02:33 | NUR ---
Patient is awake, alert and have some bouts of confusion. She gets so anxious last night for she wants to call her sister who are in [place].She gave numbers that's not even possible. It contains 15 digits. She is very adamant to talk to the sister and she cried when RN told her that it cannot be reach. She ring the light and complain that she is having chest pain. Her VS are stable but her heart rate are in 40's which is her baseline. Breakfast Server was on the phone to RN and said that she tried to call mining plant operator to give call to [place] to her sister. RN talked to her and tried to comfort her and explained the time difference between [place] and [place] then she calms down. She complains of being nauseous and Zofran PRN was given. She slept late this morning around 0200am. Bed alarm is on and call light is within reach. Continue to monitor.
--- NOTE | 2020-11-06 06:58 | NUR ---
Report received from SALLY Ledezma. Pt. resting in bed quietly, drowsy at this time. Pt able to open her eyes and answer yes/no but falls back asleep. SALLY Ledezma reported pt. was awake off and on throughout the night with confusion. Bed alarm on, call light in reach.
--- NOTE | 2020-11-06 09:09 | NUR ---
Plan was for pt. to get OOB with PT, but upon assessment of patient at this time, pt. still in bed. This RN has not seen PT Peter to ask if pt. changed her mind about getting OOB. Pt. did refuse blood sugar check and vitals for assigned, pt. let this RN take vitals and perform blood sugar check.
[2020-11-06 10:23] LABS: EOS # 0.1 (0.0-0.7); EOS % 1.6 % (0-4.0); GRAN # 4.3 (1.4-6.5); GRAN % 75.4 % (42.2-75.2); HEMATOCRIT 37.7 % (37.0-47.0); HEMOGLOBIN 12.5 g/dl (12.5-16.0); LYMPH # 0.9 (1.2-3.4); LYMPH % 16.2 % (20.0-51.0); MEAN CELL VOLUME 90 fl (80.0-100.0); MEAN CORPUSCULAR HEMOGLOBIN 30 pg (27.0-31.0); MEAN CORPUSCULAR HGB CONC 33 g/dl (33.0-37.0); MONO # 0.4 (0.1-0.6); MONO % 6.6 % (1.7-9.3); PLATELET COUNT 210 K/mm3 (130-400); RED BLOOD COUNT 4.21 M/mm3 (4.10-5.30); REDCELL DISTRIBUTION WIDTH-CV 12.7 % (11.5-14.5)
--- NOTE | 2020-11-06 10:26 | NUR ---
Dr. Robert came to round on patient, this RN notified Dr. Robert that pt.'s blood sugar was 61, pt instructed to drink 4 oz grape juice and eat breakfast, and recheck increased to 108. Pt. was also agreeable to get labs drawn, lab results available at this time. Pt now resting in bed, bed alarm on.
[2020-11-06 11:01] LABS: CALCIUM 8.7 mg/dL (8.4-10.2); CREATININE, serum 1.3 (0.52-1.25); POTASSIUM 3.6 mmol/L (3.4-5.0)
[2020-11-06 11:45] LABS: TROPONIN-I 0.013 ng/mL (0.000-0.035)
--- NOTE | 2020-11-06 13:09 | NUR ---
Pt. progressing w/ plan of care. Pt. agreeable with getting OOB to chair. Pt. was able to take two to three steps to get into the chair. Pt. reports she feels tired. Pt OOB in chair, denies pain, waiting for lunch. Pt. denies additional needs at this time. Chair alarm on, call light in reach.
[2020-11-06] MEDS ORDERED: PRINIVIL20 MG PO (13:11)
--- NOTE | 2020-11-06 14:05 | NUR ---
Pt. alert and sitting up in chair. Pt.'s son was visiting and asking this RN about the plan. Pt.'s son requesting to speak with the doctor regarding plan of care. Dr. Robert notified and came to speak with pt.'s son. Plan to get social work involved to assist with discharge plans.
--- NOTE | 2020-11-06 15:08 | NUR ---
MC informed that patient would be DC'ing today, notified by physician. Physician stated that she would be providing orders for HH. MC went to talk to patient about choices for HH agencies and patient stated that she would not be deciding on an agency because she doesn't need their services. MC informed patient that physician recommends HH services for patient. Patient stated that she did not care and would not be accepting the order or any HH services. MC attempted to call son DPDIO to provide information and son did not answer. MC will continue to follow.
--- NOTE | 2020-11-06 17:00 | NUR ---
Hahn cath removed per physician order. Yina care performed.
--- NOTE | 2020-11-06 18:37 | NUR ---
Pt. reports nausea is still present intermittently, but improving. Pt. alert and engaging in conversation. Second troponin resulted, see labs. GIDEON Elizabeth notified on the telephone and is aware. Pt. has not vomited and is trying to take in small sips of gatorade and nephro drink. Pt. inquiring about home med xanax, will pass along in evening report.
--- NOTE | 2020-11-06 20:51 | NUR ---
Patient is very upset right now that she cannot reach her son. The number that was written on the board for his son cannot be reach. She is alert and awake but something is off with her. She said that she is not feeling well but all her VS looks good and in TELE she is fine. I explained it to her and she is ok but after she will cry. She wants to talk to another DR she said that the daytime DR is not helpful to her. Continue to monitor.
--- NOTE | 2020-11-07 03:11 | NUR ---
Assessment done and completed. Patient is confused at night. She was crying again and was in her call light a lots of time. She was in reclining chair when RN did assessment and it was hard for tech and RN to get her back in bed. She wants somebody to talk to in her room. RN spent about 15min for repetitive stories. RN got the order of Melatonin and Motrin and that was given. She started to be sleepy but she is fighting with it. Otherwise the call lights lessen but she remained awake most of the night. Her Hahn was DC yesterday afternoon and she use the bathroom once. She does not drink that much. Will continue to follow.
[2020-11-07 05:50] VITALS: BP 144/40; PULSE 43; TEMP 98
[2020-11-07 07:48] VITALS: BP 134/54; PULSE 53; TEMP 97.3
--- NOTE | 2020-11-07 10:09 | NUR ---
MC attended clinical rounds. The patient was suppose to d/c yesterday, but has not left yet. MC followed up with the patient and discussed home health services again and it's benefits. The patient refused home health. The patient states that she is going home. MC contacted the patient's son, Mehran, at where he works: [employer] (ph#[phone]). Mehran reports that he works until 1900 today, but will pick up worker the patient and transport her home after. Mehran provided MC with his cell ph#[phone]. MC updated the patient's RN and the patient. The patient is to discharge back home today, 11/07. No additional needs at this time.
[2020-11-07 11:52] VITALS: BP 155/46; PULSE 90; TEMP 98.3
--- NOTE | 2020-11-07 12:58 | NUR ---
First visit from the manager cath lab. No needs right now.
[2020-11-07 16:00] VITALS: BP 118/47; PULSE 54; TEMP 97.6
--- NOTE | 2020-11-07 18:25 | NUR ---
DISCHARGE INSTRUCTIONS REVIEWED WITH PT. PT STILL REFUSES HOME HEALTH ASSISTANCE. PT HAS NO QUESTIONS AT THIS TIME. PT IS WAITING FOR HER SON TO PICK HER UP AT 7:30PM. IV ACCESS DISCONTINUED.
[2020-11-07 19:37] VITALS: BP 135/44; PULSE 61
--- NOTE | 2020-11-07 19:49 | NUR ---
Pt reports bringing her personal cane to hospital which is not currently in her room. Pt has called on the call light asking about her cane and is yelling out angrily about us not finding her cane, stating "I can't walk without it so I can't go home without it." direct care supervisor notified to assist with locating pt's cane. Pt's son is here to take pt home so the MORTGAGE SPECIALIST offers the pt to take a hospital cane home while we search for pt's cane. Pt yelling "that isn't my cane. I can't use it and I won't use it. Find my cane!!" direct care supervisor notified again of pt's frustration. MORTGAGE SPECIALIST in room to assist pt with getting dressed.
== END 2020-11-07 19:30 | disposition home or self-care (01) ==
LOC: COL.ER 17:16 → MEDICAL 21:56
PROVIDERS: Emergency Medicine; Nurse Practitioner Family; Physician Assistant; ADMIT Internal Medicine
DX: G93.40 Encephalopathy, unspecified (principal); I21.A1 Myocardial infarction type 2; I50.31 Acute diastolic (congestive) heart failure; I13.0 Hypertensive heart and chronic kidney disease with heart failure and stage 1 through stage 4 chronic kidney disease, or unspecified chronic kidney disease; N18.30 Chronic kidney disease, stage 3 unspecified; E11.65 Type 2 diabetes mellitus with hyperglycemia; E11.22 Type 2 diabetes mellitus with diabetic chronic kidney disease; E11.42 Type 2 diabetes mellitus with diabetic polyneuropathy; I25.10 Atherosclerotic heart disease of native coronary artery without angina pectoris; I48.91 Unspecified atrial fibrillation; G20 Parkinson's disease; F02.80 Dementia in other diseases classified elsewhere, unspecified severity, without behavioral disturbance, psychotic disturbance, mood disturbance, and anxiety; R53.81 Other malaise; E78.5 Hyperlipidemia, unspecified; R32 Unspecified urinary incontinence; I27.20 Pulmonary hypertension, unspecified; E66.9 Obesity, unspecified; I08.3 Combined rheumatic disorders of mitral, aortic and tricuspid valves; E05.00 Thyrotoxicosis with diffuse goiter without thyrotoxic crisis or storm; E03.9 Hypothyroidism, unspecified; F31.9 Bipolar disorder, unspecified; Z79.82 Long term (current) use of aspirin; Z95.818 Presence of other cardiac implants and grafts; Z79.02 Long term (current) use of antithrombotics/antiplatelets; Z86.73 Personal history of transient ischemic attack (TIA), and cerebral infarction without residual deficits; Z91.81 History of falling; Z96.0 Presence of urogenital implants; Z79.899 Other long term (current) drug therapy; Z79.890 Hormone replacement therapy; Z68.35 Body mass index [BMI] 35.0-35.9, adult; Z79.84 Long term (current) use of oral hypoglycemic drugs
CPT/HCPCS: 99231-AI; 99232-AI; 99239; G0378; J1650; J1815; J1940; J2405; J7030; J7120; Q9967

== ENCOUNTER → 2021-02-22 | Outpatient (CLI) | payer MEDICARE, BC ==
[~2021-02-22] MED LIST changes: +PRINIVIL20 MG PO
== END ==
LOC: COL.RAD 02-20 12:00
DX: N18.32 Chronic kidney disease, stage 3b (principal); N13.30 Unspecified hydronephrosis

== ENCOUNTER 2021-03-21 10:47 | Day surgery (SDC) | payer MEDICARE, BC ==
[~2021-03-21] VITALS: Ht 152.4 cm; Wt 83.1 kg
[2021-03-21] MEDS ORDERED: LASIX 20MG TABL20 MG PO (11:16)
[2021-03-21] MEDS ORDERED: FLORINEF ACETA0.1 MG PO (11:16)
--- NOTE | 2021-03-21 11:30 | NUR ---
Asked Dr. Pappas which antibiotic to be given first. Was informed to give Vancomycin first and then gentamycin.
[2021-03-21 11:44] VITALS: BP 129/59; PULSE 63; TEMP 96.7
--- NOTE | 2021-03-21 11:49 | NUR ---
Notified Roberto Leal CRNA of blood sugar of 227.
[2021-03-21 14:19] VITALS: BP 133/47; PULSE 52; TEMP 97.4
--- NOTE | 2021-03-21 14:19 | NUR ---
Patient arrived back into [facility], report recieved from SALLY Crowley from OR. Patient awake and alert. Vital signs stable.
--- NOTE | 2021-03-21 14:20 | NUR ---
Notified Dr. Pappas that gentamycin was not given in OR. Recieved order to given gentamycin now.
[2021-03-21 14:34] VITALS: BP 115/98; PULSE 68
--- NOTE | 2021-03-21 14:34 | NUR ---
Patient continues to do well. Ate blueberry muffin and Pepsi. Pain is minimal or none. No nausea or vomiting.
[2021-03-21 14:49] VITALS: BP 127/53; PULSE 66
--- NOTE | 2021-03-21 14:50 | NUR ---
Gentamicin started per 1519: 1st bag finished on time. 2nd bag hung per 1549: 2nd bag completed.
[2021-03-21 15:04] VITALS: BP 120/58; PULSE 72
--- NOTE | 2021-03-21 15:15 | NUR ---
Went through discharge instructions with patient. Patient verbalized understanding to education, questions answered.
[2021-03-21 15:19] VITALS: BP 122/62; PULSE 70
--- NOTE | 2021-03-21 15:50 | NUR ---
IV antibiotics completed. IV removed. Patient got dressed. Son was called and told to meet patient by emergency department entrance. 1559: Patient met by son at emergency department entrance. Patient got into personal vehicle unassisted and was left in the care of her son, Mehran Rose.
== END 2021-03-21 16:00 | disposition home or self-care (01) ==
LOC: SDCO 10:47
DX: N39.41 Urge incontinence (principal); R35.0 Frequency of micturition; I48.91 Unspecified atrial fibrillation; I12.9 Hypertensive chronic kidney disease with stage 1 through stage 4 chronic kidney disease, or unspecified chronic kidney disease; I25.10 Atherosclerotic heart disease of native coronary artery without angina pectoris; I48.92 Unspecified atrial flutter; I34.9 Nonrheumatic mitral valve disorder, unspecified; G20 Parkinson's disease; E78.5 Hyperlipidemia, unspecified; E11.42 Type 2 diabetes mellitus with diabetic polyneuropathy; E03.9 Hypothyroidism, unspecified; N18.30 Chronic kidney disease, stage 3 unspecified; E11.22 Type 2 diabetes mellitus with diabetic chronic kidney disease; F31.9 Bipolar disorder, unspecified; F03.90 Unspecified dementia, unspecified severity, without behavioral disturbance, psychotic disturbance, mood disturbance, and anxiety; Z86.73 Personal history of transient ischemic attack (TIA), and cerebral infarction without residual deficits; Z87.891 Personal history of nicotine dependence; Z79.84 Long term (current) use of oral hypoglycemic drugs; Z79.82 Long term (current) use of aspirin; Z79.899 Other long term (current) drug therapy; Z79.02 Long term (current) use of antithrombotics/antiplatelets; Z79.890 Hormone replacement therapy
CPT/HCPCS: C1778; C1787; J1580; J2250; J2405; J2704; J3010; J3370; J7050; J7120; L8679

== ENCOUNTER 2021-05-19 10:53 | Emergency (ER) | payer MEDICARE, BC ==
[~2021-05-19] VITALS: Ht 152.4 cm; Wt 86.4 kg
[~2021-05-19 10:53] MED LIST changes: +LASIX 20MG TABL20 MG PO
[2021-05-19 10:57] VITALS: TEMP 98.7
[2021-05-19] MEDS ORDERED: LIDODERM 5% PATC1 EA TP (11:46)
[2021-05-19 11:55] VITALS: BP 135/67; PULSE 80
== END 2021-05-19 11:57 | disposition home or self-care (01) ==
LOC: COL.ER 10:53
DX: M25.511 Pain in right shoulder (principal); R07.89 Other chest pain; E78.5 Hyperlipidemia, unspecified; I25.10 Atherosclerotic heart disease of native coronary artery without angina pectoris; I48.91 Unspecified atrial fibrillation; E11.22 Type 2 diabetes mellitus with diabetic chronic kidney disease; I12.9 Hypertensive chronic kidney disease with stage 1 through stage 4 chronic kidney disease, or unspecified chronic kidney disease; N18.30 Chronic kidney disease, stage 3 unspecified; F31.9 Bipolar disorder, unspecified; F03.90 Unspecified dementia, unspecified severity, without behavioral disturbance, psychotic disturbance, mood disturbance, and anxiety; Z86.73 Personal history of transient ischemic attack (TIA), and cerebral infarction without residual deficits; Z79.82 Long term (current) use of aspirin; Z79.84 Long term (current) use of oral hypoglycemic drugs; Z79.02 Long term (current) use of antithrombotics/antiplatelets; Z79.899 Other long term (current) drug therapy; W08.XXXA Fall from other furniture, initial encounter

== ENCOUNTER 2021-08-06 20:50 | Inpatient (IN) | payer MEDICARE ==
[~2021-08-06] VITALS: Wt 95.5 kg
[~2021-08-06 20:50] MED LIST changes: +LIDODERM 5% PATC1 EA TP
[2021-08-06 21:39] LABS: BASO % 0.2 % (0.0-2.0); EOS # 0.2 K/mm3 (0.0-0.7); EOS % 4.2 % (0.0-4.0); GRAN # 2.8 K/mm3 (1.4-6.5); GRAN % 56.9 % (42.2-75.2); HEMATOCRIT 37.7 % (37.0-47.0); HEMOGLOBIN 13.1 g/dl (12.5-16.0); LYMPH # 1.5 K/mm3 (1.2-3.4); LYMPH % 30.5 % (20.0-51.0); MEAN CELL VOLUME 86 fl (80.0-100.0); MEAN CORPUSCULAR HEMOGLOBIN 30 pg (27-31); MEAN CORPUSCULAR HGB CONC 35 g/dl (33.0-37.0); MEAN PLATELET VOLUME 9.9 fl (7.4-10.4); MONO # 0.4 K/mm3 (0.1-0.6); PLATELET COUNT 203 K/mm3 (130-400); RED BLOOD COUNT 4.38 M/mm3 (4.10-5.30); REDCELL DISTRIBUTION WIDTH-CV 12.4 % (11.5-14.5)
[2021-08-06 21:48] LABS: CALCIUM 8.6 mg/dL (8.4-10.2); CREATININE, serum 1.42 mg/dL (0.57-1.11); POTASSIUM 4.2 mmol/L (3.5-4.5)
[2021-08-06 21:56] LABS: TROPONIN-I 0.013 ng/mL (0.00-0.033)
[2021-08-07] MEDS ORDERED: ZYRTEC 10MG10 MG PO (00:24)
[2021-08-07] MEDS ORDERED: NEURONTIN100 MG/CAP (00:24)
[2021-08-07] MEDS ORDERED: ELDEPRYL 5MG5 MG/CAP PO (00:24)
[2021-08-07] MEDS ORDERED: GLUCOTROL XL10 MG PO (00:25)
[2021-08-07] MEDS ORDERED: SINGULAIR 110 MG/TAB PO (00:25)
[2021-08-07] MEDS ORDERED: TOPAMAX200 MG PO (00:25)
[2021-08-07] MEDS ORDERED: SYNTHROID0.125 MG/T PO (00:25)
[2021-08-07] MEDS ORDERED: GLUCOPHAGE1000 MG PO (00:26)
[2021-08-07] MEDS ORDERED: CANA100T PO (00:28)
[2021-08-07] MEDS ORDERED: ASPIRIN 81M81 MG/TA2 PO (00:28)
[2021-08-07 01:00] VITALS: BP 142/60; PULSE 53; TEMP 97.5
[2021-08-07 01:32] LABS: INR 0.9 (0.8-3.0); PROTHROMBIN TIME 10.4 SECONDS (9.7-12.8)
[2021-08-07 01:34] LABS: PARTIAL THROMBOPLASTIN TIME 27.3 SECONDS (26.0-37.0)
[2021-08-07 01:37] LABS: D-DIMER < 200.00 ng/mLDDu (200-230)
--- NOTE | 2021-08-07 01:52 | NUR ---
PATIENT WAS RECEIVED FROM ED ON A STRECHER.PATIENT IS AO.PATIENT BLOOD GLUCOSE 301.INSULIN IV GIVEN.PATIENT'S TROPONINS WERE ELEVATED.PATIENT WAS COMMENCED HEPARIN PER JUN.PATIENT DENIES PAIN.PATIENT WAS OFFERED A SANDWICH.PATIENT TAKES PILLS WHOLE WITH NO TROUBLE.PATIENT LIVES ALONE.SAFETY MEASURES IN PLACE.NO OTHER NEEDS AT THIS TIME.
[2021-08-07 04:07] VITALS: BP 121/51; PULSE 53; TEMP 97.5
--- NOTE | 2021-08-07 05:57 | NUR ---
PATIENT IS CALM.PATIENT IS ON HEPARIN DRIP @10MLS/HR.PATIENT DENIES PAIN.SAFETY MEASURES IN PLACE.NO OTHER NEEDS AT THIS TIME.
[2021-08-07 07:12] VITALS: BP 143/58; PULSE 63; TEMP 98
[2021-08-07 12:01] VITALS: BP 139/59; PULSE 56; TEMP 97.8
--- NOTE | 2021-08-07 12:08 | NUR ---
First visit from the engine tester. prayed with patient. No other needs right now.
--- NOTE | 2021-08-07 12:55 | NUR ---
PT SITTING UP IN RECLINER. WAS GIVEN MEDICATIONS PER eMAR. SHIFT ASSESSMENT COMPLETED. DENIES ANY PAIN OR SOB AT THIS TIME. HAS HEPARIN GTT INFUSING AT 12.5 AT THIS TIME. DENIES NEEDS. WILL CONTINUE TO MONITOR.
--- NOTE | 2021-08-07 13:57 | NUR ---
bag worker met with patient to complete intake. Patient currently lives at home alone in [place]. Patient reports to being independent with her ADL's and uses both a cane a walker to assist with mobility. Patient has no home oxygen needs. PCP is Dr. Raza and she utilizes [facility] perscriptions for her medications. She does not utilize a local pharmacy for short term medications because "they're to expensive". Patient does have a DPOA-HC established and a copy can be found in her EMR. Agent listed is her son Mehran ([phone]). Educated the patient that at this time PT/OT is recommending that she go home with HH services.* Major noting that the patient has denied these services every time in the past*. Patient is presented with the [email or web address] list of agencies to review as she did not outright denie me. Discharge plan: Home; PT/OT recommending HH
--- NOTE | 2021-08-07 14:42 | NUR ---
Notified by RT that the patient had questions about how long distance calling was billed. Informed the patient that it would be attached to her bill once she was discharged. Patient verbalized her frustration with her RN that she called her son without the patient present. Patient states " i told her that i wanted to talk with her and my two sons on the phone and i heard her talking to my son alone and i am livid. Patient reports " i am so angry i had my girlfriend reach out to [place] legal receptionist because she knew i wanted to her to talk with me and my sons". Took patients frustrations to slot floor supervisor as the patient is very upset with her RN.
[2021-08-07 16:43] VITALS: BP 143/73; PULSE 77; TEMP 97.5
[2021-08-07 21:12] VITALS: BP 160/87; PULSE 74
--- NOTE | 2021-08-07 22:53 | NUR ---
PT ALERT TO SELF- IS VERY UNCOOPERATIVE WITH MOOD SWINGS TONIGHT. PT WAS BLEEDING FROM A SKIN TEAR TO ELBOW. WOULD NOT ALLOW ME TO BUT A BANDAGE ON IT. PT WAS SWATTING AT THIS NURSE SAYING LEAVE ME ALONE. REFUSED HER PM MEDS SAID ITS NOT NESCESSARY FOR TOMORRROW. HEP GTT WAS DC PER DR LORENZO. LATER IN EVENING PT REQ PHONE NUMBER TO CALL POLICE AFTER ASKING FOR DONNA AND NOT ABLE TO SEE HIM TONIGHT. EXPLAINED WE WOULD CALL HIM IN AM FOR HER BUT SHE WAS NOT HAPPY WITH THIS. PT MOOD SWINGS ARE EXTREME TONIGHT. REF INSULIN FOR SLIDING SCALE WELL. WILL BE NPO AT 00 FOR CLIFF.
[2021-08-08] VITALS (12 sets, daily range): BP systolic 78–149; BP diastolic 41–74; PULSE 52–121; TEMP 97.4–98.3
[2021-08-08 02:08] LABS: COLLECTION METHOD CLEAN CATCH
[2021-08-08 02:18] LABS: PH 8 (5-8); SQUAMOUS EPITHELIAL 0-2 /hpf (0-10); URINE APPEARANCE Clear (CLEAR/HAZY); URINE BACTERIA Rare /hpf (NONE SEEN); URINE BILIRUBIN Negative (NEGATIVE); URINE BLOOD 1+ (NEGATIVE); URINE COLOR Colorless (YELLOW); URINE GLUCOSE 1+ (NEGATIVE); URINE KETONE Negative (NEGATIVE); URINE LEUKOCYTE ESTERASE 1+ (NEGATIVE); URINE NITRATE Negative (NEGATIVE); URINE PROTEIN(semi-quant) 1+ (NEGATIVE); URINE RBC 0-2 /hpf (0-2); URINE UROBILINOGEN Negative (NEGATIVE)
--- NOTE | 2021-08-08 04:27 | NUR ---
PT PULLED OUT IV ACCIDENTLY WHILE USING COMMODE. NEW IV STARTED TO RT FA WITHOUT DIFFICULTY. HAS BEEN NPO OVERNIGHT FOR CLIFF AND CARDIOVERSION.
--- NOTE | 2021-08-08 05:55 | NUR ---
REFUSED TO COOPERATE WITH AM LABS, WOULD NOT ALLOW DRAW.
--- NOTE | 2021-08-08 06:18 | NUR ---
Cardiopulmonary diagnostics checked with RN to see a possible time to perform EEG on patient. RN informed me that she has a stress test and CLIFF that are going to be performed today. I will check back to see when EEG can be done.
--- NOTE | 2021-08-08 08:29 | NUR ---
RT went to talk to patient about having EEG done. Patient voiced that having the EEG done tomorrow would be more ideal. I told patient that I would check with her oil spot washer tomorrow to get it done.
--- NOTE | 2021-08-08 11:02 | NUR ---
PT REFUSED POST CARDIOVERSION EKG. GERONIMO ZAVALA NOTIFIED
--- NOTE | 2021-08-08 11:35 | NUR ---
VERBAL ORDERS FROM RACHELLE CRUZ TO START HEPARIN GTT AT 10ML/HR UNTIL ABLE TO OBTAIN HEP XA. PT REFUSED EKG, REFUSED PO MEDICATIONS, REFUSED LAB DRAWS. WILL ATTEMPT TO SPEAK WITH PT AGAIN.
[2021-08-08 12:19] LABS: BASO % 0.4 % (0.0-2.0); EOS # 0.2 K/mm3 (0.0-0.7); EOS % 3.7 % (0.0-4.0); GRAN # 3.2 K/mm3 (1.4-6.5); GRAN % 64.7 % (42.2-75.2); HEMATOCRIT 40.6 % (37.0-47.0); HEMOGLOBIN 13.5 g/dl (12.5-16.0); LYMPH # 1.3 K/mm3 (1.2-3.4); LYMPH % 26.7 % (20.0-51.0); MEAN CELL VOLUME 89 fl (80.0-100.0); MEAN CORPUSCULAR HEMOGLOBIN 30 pg (27-31); MEAN CORPUSCULAR HGB CONC 33 g/dl (33.0-37.0); MEAN PLATELET VOLUME 10.1 fl (7.4-10.4); MONO # 0.2 K/mm3 (0.1-0.6); MONO % 4.1 % (1.7-9.3); PLATELET COUNT 246 K/mm3 (130-400); RED BLOOD COUNT 4.58 M/mm3 (4.10-5.30); REDCELL DISTRIBUTION WIDTH-CV 12.8 % (11.5-14.5)
[2021-08-08 12:28] LABS: CALCIUM 8.2 mg/dL (8.4-10.2); CREATININE, serum 1.18 mg/dL (0.57-1.11); POTASSIUM 4.5 mmol/L (3.5-4.5)
--- NOTE | 2021-08-08 12:50 | NUR ---
Initial visit; Patient thanked Abrasive Grader for looking in on her and offering prayer, encouragement and empathy. Abrasive Grader will keep Landon in her prayers and follow up while she is a patient here.
[2021-08-08 13:36] LABS: PARTIAL THROMBOPLASTIN TIME 154.1 SECONDS (26.0-37.0)
--- NOTE | 2021-08-08 19:30 | NUR ---
HEP XA 1.38. STOPPED FOR 2 HR WILL DRAW NEXT HEP XA AT 2130.
[2021-08-08 22:01] LABS: PARTIAL THROMBOPLASTIN TIME 98.9 SECONDS (26.0-37.0)
--- NOTE | 2021-08-08 22:14 | NUR ---
HEP XA 0.86- CONT TO BE OFF FOR 1 MORE HR RESTART AT 2230 DECRESE BY 200 UNITS.
--- NOTE | 2021-08-08 23:35 | NUR ---
ALERT AND OX3. DENIES SOA, CHEST PAIN OR DIZZY. IS TEARFUL FOR HER BEHAVIOR TODAY. CONTINUES TO REFUSE SOME CARES/MEDS/LAB. DID TALK HER INTO TAKING HER PM PILLS. REF BLOOD SUGAR STICK. NPO AT 00 EEG AND LEXISCAN IN AM IF SHE DOESNT REFUSE IT AGAIN SHE DID THIS AM.
[2021-08-09 00:43] VITALS: BP 138/52; PULSE 65; TEMP 97.6
[2021-08-09 03:28] VITALS: BP 105/87; PULSE 59; TEMP 98
--- NOTE | 2021-08-09 05:19 | NUR ---
pt refused 0430 hep xa. This nurse convienced pt that she needs to allow a draw so we may monitor the levels. Clara notifed. Will place heparin on hold until draw per clara/
--- NOTE | 2021-08-09 06:15 | NUR ---
REFUSED STRESS TEST THIS AM. WILL DO EEG LATER THIS AM/EARLY AFTERNOON. BRIGHT RT STOPPED BY TO DISCUSS W PT. HEP XA NOT RESULTED YET. AWAITING RESULTS.
--- NOTE | 2021-08-09 06:17 | NUR ---
Went to perform EEG on patient. RN is waiting for Heprin results to adjust heprin. Due to circumstances I can't bring the EEG machine up to her room this morning. I explained to patient that I will check with her during the day and will be able to perform EEG around 2ish this afternoon.
--- NOTE | 2021-08-09 06:55 | NUR ---
PT HEP Xa not resulted yet. Passed on to day shift SALLY Garcia to be looking for results.
--- NOTE | 2021-08-09 07:00 | NUR ---
CRITICAL LAB COMMUNICATED TO THIS NURSE. HEP XA 1.04. HEP DRIP STOPPED PER ORDER FOR 1 HOUR AT 0700. WILL PLAN TO RESTART DRIP AT 0800 PER ORDER AND HAVE LAB REDRAW ANOTHER LEVEL AT 1400 PER ORDER.
[2021-08-09 07:05] LABS: CALCIUM 7.8 mg/dL (8.4-10.2); CREATININE, serum 1.32 mg/dL (0.57-1.11); POTASSIUM 3.7 mmol/L (3.5-4.5)
--- NOTE | 2021-08-09 07:18 | NUR ---
PATIENT STATES SHE DOES NOT WANT "CHEMICAL STRESS TEST DONE". PATIENT HAS BEEN REFUSING THIS FOR 3 DAYS AT THIS POINT. IS AGREEABLE TO EEG ORDERED. IS REQUESTING NPO DIET TO BE REMOVED SO SHE CAN EAT. CARDIO ON CASE PAGED.
--- NOTE | 2021-08-09 07:47 | NUR ---
PROVIDER CALLED TO REPORT CRITICAL HEP XA, PATIENT REFUSAL OF STRESS TEST, DIET REQUEST AND CONSISTENT BRADYCARDIA ON TELEMONITOR. ORDERS RECIEVED TO HOLD SOTALOL DOSE
--- NOTE | 2021-08-09 09:45 | NUR ---
Follow-up visit; Patient is doing well. Routing Equipment Tender offered God's blessings and a get well message.
[2021-08-09 10:24] VITALS: BP 129/51; PULSE 42; TEMP 97.5
[2021-08-09 12:15] VITALS: BP 94/67; PULSE 61; TEMP 98.4
[2021-08-09 14:10] LABS: BASO % 0.5 % (0.0-2.0); EOS # 0.1 K/mm3 (0.0-0.7); EOS % 2.8 % (0.0-4.0); GRAN # 2.7 K/mm3 (1.4-6.5); LYMPH # 1.2 K/mm3 (1.2-3.4); LYMPH % 28.8 % (20.0-51.0); MEAN CELL VOLUME 90 fl (80.0-100.0); MEAN CORPUSCULAR HGB CONC 33 g/dl (33.0-37.0); MEAN PLATELET VOLUME 10.2 fl (7.4-10.4); MONO # 0.2 K/mm3 (0.1-0.6); MONO % 5.4 % (1.7-9.3); PLATELET COUNT 206 K/mm3 (130-400); RED BLOOD COUNT 3.89 M/mm3 (4.10-5.30); REDCELL DISTRIBUTION WIDTH-CV 12.9 % (11.5-14.5)
[2021-08-09 14:14] LABS: HEMATOCRIT 35.1 % (37.0-47.0); HEMOGLOBIN 11.5 g/dl (12.5-16.0); MEAN CORPUSCULAR HEMOGLOBIN 30 pg (27-31)
[2021-08-09 14:23] LABS: CHOLESTEROL RISK RATIO 4.1
[2021-08-09 15:45] VITALS: BP 139/91; PULSE 58; TEMP 97.6
[2021-08-09 19:58] VITALS: BP 153/74; PULSE 52; TEMP 97.9
[2021-08-10 04:15] VITALS: BP 149/53; PULSE 49; TEMP 97.6
--- NOTE | 2021-08-10 06:15 | NUR ---
PT REFUSED TO ALLOW ME TO ASSESS HER, PERFORM NEURO'S, TAKE HER ELIQUIS (VTE) OR ANY OF HER OTHER MEDS. PT BASICALLY TOLD ME TO GET OUT OF HER ROOM AND DON'T BOTHER COMING BACK (BUT I DID TRY TO COME BACK, TO SEE IF SHE WOULD CHANGE HER MIND). SHE DID NOT. CALL LIGHT WITHIN REACH.
--- NOTE | 2021-08-10 07:00 | NUR ---
PT RESTING IN BED. NO NEEDS AT THIS TIME. WILL CONTINUE TO MONITOR.
[2021-08-10 07:29] VITALS: BP 158/60; PULSE 42; TEMP 98
--- NOTE | 2021-08-10 08:45 | NUR ---
PT REFUSING TO TAKE AM MEDS. LENGTHY DISCUSS WITH PT REGARDING IMPORTANCE OF TAKING HER MEDICATIONS AND THE NEW MEDICATION ORDERED BY CARDIOLOGY. PT STILL REFUSING.
[2021-08-10] MEDS ORDERED: ELIQUIS 5MG PO (10:54)
[2021-08-10] MEDS ORDERED: BETAPACE 80MG80 MG PO (10:55)
[2021-08-10] MEDS ORDERED: LIPITOR 40MG TA40 MG PO (10:55)
[2021-08-10] MEDS ORDERED: TRADJENTA5 MG PO (10:57)
--- NOTE | 2021-08-10 11:34 | NUR ---
Pt's iv and tele dc'd. Pt getting dressed for discharge.
--- NOTE | 2021-08-10 11:54 | NUR ---
Discharge instructions discussed with Pt. Discussed follow up's with cardiology, neurology, and primary care. Reminded to picket [employer] new prescriptions as soon as able. Pt dressed and wheeled out for discharge by Janina MORRIS. Son waiting at patient enterence.
--- NOTE | 2021-08-10 12:55 | NUR ---
Patient presented with the [facility].IM form. Education provided and the patient verbalized her agreement with discharge plan back home today. Patients signed original placed in her chart and copy provided back to the patient. Patient expresses to her RN that she cannot have her medications sent to [facility] and they have to go through her [employer] mail script because she cannot afford them. Offered the patient to have her perscriptions sent to [facility] and that we could provide a medication voucher for them. Patient declines offer stating " my son doesn't have time to take me over there". Patient insists on having her medications sent through her [employer] insurance. Discharge plan: Home
== END 2021-08-10 12:20 | disposition home health service (06) | DRG 309 ==
LOC: COL.ER → MEDICAL 23:09
PROVIDERS: Emergency Medicine; Family Medicine; Internal Medicine Cardiovascular Disease; Nurse Practitioner Family; Physician Assistant; ADMIT Internal Medicine
PROC: 5A2204Z Restoration of Cardiac Rhythm, Single (ICD-10-PCS; principal; 2021-08-08)
PROC: B24BZZ4 Ultrasonography of Heart with Aorta, Transesophageal (ICD-10-PCS; 2021-08-08)
DX: I48.0 Paroxysmal atrial fibrillation (principal); I13.0 Hypertensive heart and chronic kidney disease with heart failure and stage 1 through stage 4 chronic kidney disease, or unspecified chronic kidney disease; E11.65 Type 2 diabetes mellitus with hyperglycemia; I48.92 Unspecified atrial flutter; E11.22 Type 2 diabetes mellitus with diabetic chronic kidney disease; E78.5 Hyperlipidemia, unspecified; I25.10 Atherosclerotic heart disease of native coronary artery without angina pectoris; G20 Parkinson's disease; Z66 Do not resuscitate; F02.80 Dementia in other diseases classified elsewhere, unspecified severity, without behavioral disturbance, psychotic disturbance, mood disturbance, and anxiety; E03.9 Hypothyroidism, unspecified; F31.9 Bipolar disorder, unspecified; N18.30 Chronic kidney disease, stage 3 unspecified; I27.20 Pulmonary hypertension, unspecified; I50.9 Heart failure, unspecified; E86.0 Dehydration; I08.3 Combined rheumatic disorders of mitral, aortic and tricuspid valves; Z86.73 Personal history of transient ischemic attack (TIA), and cerebral infarction without residual deficits; Z79.84 Long term (current) use of oral hypoglycemic drugs; Z79.82 Long term (current) use of aspirin; I25.2 Old myocardial infarction
CPT/HCPCS: 99232-AI; 99233-AI; 99239; G0378; J0690; J1644; J1815; J1885; J2370; J2704; J2765; J7030

== ENCOUNTER 2021-10-10 15:20 | Emergency (ER) | payer MEDICARE ==
[~2021-10-10] VITALS: Ht 152.4 cm; Wt 79.5 kg
[~2021-10-10 15:20] MED LIST changes: +BETAPACE 80MG80 MG PO; +CANA100T PO; +ELIQUIS 5MG PO; +GLUCOTROL XL10 MG PO; +NEURONTIN100 MG/CAP; +TRADJENTA5 MG PO
[2021-10-10 16:41] LABS: BASO % 0.2 % (0.0-2.0); EOS # 0.2 K/mm3 (0.0-0.7); GRAN # 3.1 K/mm3 (1.4-6.5); GRAN % 64.2 % (42.2-75.2); HEMATOCRIT 38.9 % (37.0-47.0); LYMPH # 1.2 K/mm3 (1.2-3.4); LYMPH % 23.9 % (20.0-51.0); MEAN CELL VOLUME 88 fl (80.0-100.0); MEAN CORPUSCULAR HEMOGLOBIN 29 pg (27-31); MEAN CORPUSCULAR HGB CONC 33 g/dl (33.0-37.0); MONO # 0.4 K/mm3 (0.1-0.6); MONO % 7.5 % (1.7-9.3); PLATELET COUNT 195 K/mm3 (130-400); RED BLOOD COUNT 4.43 M/mm3 (4.10-5.30); REDCELL DISTRIBUTION WIDTH-CV 12.6 % (11.5-14.5)
[2021-10-10 16:59] LABS: ALBUMIN 3.2 gm/dL (3.4-4.8); ALKALINE PHOSPHATASE 96 U/L (40-150); ANION GAP 12 mmol/L (7-16); AST,SGOT 7 U/L (5-34); BILIRUBIN,TOTAL 0.4 mg/dL (0.2-1.2); BLOOD UREA NITROGEN 21 mg/dL (10-20); CALCIUM 8.6 mg/dL (8.4-10.2); CARBON DIOXIDE 19 mmol/L (23-31); CHLORIDE 106 mmol/L (98-107); CREATININE, serum 1.43 mg/dL (0.57-1.11); GLUCOSE 344 mg/dL (70-99); POTASSIUM 3.9 mmol/L (3.5-4.5); SODIUM 137 mmol/L (136-145)
[2021-10-10 17:00] LABS: ALANINE AMINOTRANSFERASE < 6 U/L (0-55)
[2021-10-10 19:20] LABS: COLLECTION METHOD CLEAN CATCH
[2021-10-10 19:31] LABS: MUCOUS Present (NOT PRESENT); PH 7 (5-8); SQUAMOUS EPITHELIAL 0-2 /hpf (0-10); URINE APPEARANCE Clear (CLEAR/HAZY); URINE BACTERIA None Seen /hpf (NONE SEEN); URINE BILIRUBIN Negative (NEGATIVE); URINE BLOOD Negative (NEGATIVE); URINE COLOR Straw (YELLOW); URINE GLUCOSE 3+ (NEGATIVE); URINE KETONE Negative (NEGATIVE); URINE LEUKOCYTE ESTERASE Trace (NEGATIVE); URINE NITRATE Negative (NEGATIVE); URINE PROTEIN(semi-quant) 2+ (NEGATIVE); URINE RBC 0-2 /hpf (0-2); URINE UROBILINOGEN Negative (NEGATIVE)
[2021-10-10] MEDS ORDERED: MACROBID 1100 MG/CAP PO (19:34)
[2021-10-10 20:07] VITALS: BP 167/70; PULSE 60; TEMP 99
== END 2021-10-10 20:25 | disposition home or self-care (01) ==
LOC: COL.ER 15:20
PROVIDERS: Physician Assistant
DX: N39.0 Urinary tract infection, site not specified (principal); R53.1 Weakness; R19.7 Diarrhea, unspecified; R79.89 Other specified abnormal findings of blood chemistry; Z87.891 Personal history of nicotine dependence
CPT/HCPCS: J0696; J7030

== ENCOUNTER 2021-11-18 20:20 | Inpatient (IN) | payer MEDICARE ==
[~2021-11-18] VITALS: Ht 152.4 cm; Wt 82.5 kg
[~2021-11-18 20:20] MED LIST changes: +MACROBID 1100 MG/CAP PO
[2021-11-18 20:38] LABS: BASO % 0.2 % (0.0-2.0); EOS # 0.2 K/mm3 (0.0-0.7); EOS % 4.1 % (0.0-4.0); GRAN # 2.4 K/mm3 (1.4-6.5); GRAN % 53.4 % (42.2-75.2); HEMOGLOBIN 11.7 g/dl (12.5-16.0); LYMPH # 1.5 K/mm3 (1.2-3.4); LYMPH % 34.3 % (20.0-51.0); MEAN CELL VOLUME 88 fl (80.0-100.0); MEAN CORPUSCULAR HEMOGLOBIN 30 pg (27-31); MEAN CORPUSCULAR HGB CONC 34 g/dl (33.0-37.0); MEAN PLATELET VOLUME 10.7 fl (7.4-10.4); MONO # 0.3 K/mm3 (0.1-0.6); MONO % 7.5 % (1.7-9.3); PLATELET COUNT 217 K/mm3 (130-400); RED BLOOD COUNT 3.95 M/mm3 (4.10-5.30); REDCELL DISTRIBUTION WIDTH-CV 12.2 % (11.5-14.5)
[2021-11-18 20:39] LABS: HEMATOCRIT 34.9 % (37.0-47.0)
[2021-11-18 20:56] LABS: ALBUMIN 2.8 gm/dL (3.4-4.8); ALKALINE PHOSPHATASE 103 U/L (40-150); ANION GAP 8 mmol/L (7-16); AST,SGOT 8 U/L (5-34); BILIRUBIN,TOTAL 0.4 mg/dL (0.2-1.2); BLOOD UREA NITROGEN 31 mg/dL (10-20); CALCIUM 8.5 mg/dL (8.4-10.2); CARBON DIOXIDE 21 mmol/L (23-31); CHLORIDE 105 mmol/L (98-107); CREATININE, serum 1.53 mg/dL (0.57-1.11); LIPASE 68 U/L (8-78); POTASSIUM 5.1 mmol/L (3.5-4.5); SODIUM 134 mmol/L (136-145); TOTAL PROTEIN 5.6 gm/dL (6.2-8.1)
[2021-11-18 20:58] LABS: ALANINE AMINOTRANSFERASE < 6 U/L (0-55)
[2021-11-18 20:59] LABS: GLUCOSE 540 mg/dL (70-99)
[2021-11-18 21:04] LABS: ACETONE,SERUM NEGATIVE
[2021-11-18 21:06] LABS: COLLECTION METHOD CLEAN CATCH
[2021-11-18 21:12] LABS: PH 6 (5-8); URINE APPEARANCE Clear (CLEAR/HAZY); URINE BLOOD Negative (NEGATIVE); URINE COLOR Yellow (YELLOW); URINE GLUCOSE 3+ (NEGATIVE); URINE KETONE Negative (NEGATIVE); URINE NITRATE Negative (NEGATIVE); URINE PROTEIN(semi-quant) 3+ (NEGATIVE); URINE UROBILINOGEN Negative (NEGATIVE)
[2021-11-18 21:14] LABS: MUCOUS Present (NOT PRESENT); SQUAMOUS EPITHELIAL None Seen /hpf (0-10); URINE BACTERIA None Seen /hpf (NONE SEEN); URINE RBC 0-2 /hpf (0-2)
[2021-11-18] MEDS ORDERED: CEPHALEXIN500 M1 PO (22:10)
[2021-11-18] MEDS ORDERED: NEURONTIN400 MG/CAP PO (22:15)
--- NOTE | 2021-11-18 22:38 | NUR ---
PT RECIEVED FROM ED
[2021-11-18 22:42] VITALS: BP 168/46; PULSE 48; TEMP 97.3
[2021-11-18] MEDS ORDERED: LASIX 40MG TABL40 MG PO (23:03)
[2021-11-18] MEDS ORDERED: K-DUR20 MEQ PO (23:04)
[2021-11-19] VITALS (7 sets, daily range): BP systolic 121–172; BP diastolic 33–97; PULSE 31–66; TEMP 97.4–98.6
--- NOTE | 2021-11-19 00:27 | NUR ---
Pt received from cardiovascular surgical tech and transported from [facility] to bed. VS and blood sugar immediately assessed. VS stable, FSBS 256. Pt is alert to speech, but drowsy and falls asleep quickly. Pt is oriented x4, but is very forgetful and has a difficult time recalling things. Pt takes time to process conversations and takes time to respond. Noted BLE swelling 2+ and 1+ edema in the feet bilaterally. Pt has redness noted on the left calf/ankle area/ Pt has yellow/scabbing/crusting toenails bilaterally. Noted a small bruise on the pt's left hip/back back. No other significant wounds noted. Pt states she in incontinent at home. Fall precautions in place. Pt oriented to room and educated to call for assistance before getting OOB. Admission intake and admission assessment completed. Allergies reviewed and confirmed. Medication rx reviewed with pt. Pt has difficulty recalling her home medications. Continues to state "there's just too many, I have bottles lying around everywhere". COVID and infectious disease assessments completed. Pt provided with nourishment. Medications administered per orders and education provided. IV fluids started. Telemetry on. Pt on room air. Pt reports pain when being moved on her "right side", but denies pain at rest. Pt does not report any further questions at this time. Bed low and locked, call negrete within reach. No other concerns at this time.
--- NOTE | 2021-11-19 07:18 | NUR ---
No adverse events overnight. Pt alert and oriented, very forgetful. Still cognitively slow with thought processes/responses. Follows commands. Up to void on BSC x2 overnight. IV fluids continuing per orders. VS stable. Breakfast ordered for pt this morning. Tolerating PO. On room air. Bed low and locked, call negrete within reach. No new concerns at this time.
[2021-11-19 07:40] LABS: BASO % 0.3 % (0.0-2.0); EOS # 0.2 K/mm3 (0.0-0.7); EOS % 5.1 % (0.0-4.0); GRAN % 50.2 % (42.2-75.2); HEMOGLOBIN 10.8 g/dl (12.5-16.0); LYMPH # 1.4 K/mm3 (1.2-3.4); LYMPH % 35.5 % (20.0-51.0); MEAN CELL VOLUME 88 fl (80.0-100.0); MEAN CORPUSCULAR HEMOGLOBIN 30 pg (27-31); MEAN CORPUSCULAR HGB CONC 34 g/dl (33.0-37.0); MEAN PLATELET VOLUME 12.1 fl (7.4-10.4); MONO # 0.3 K/mm3 (0.1-0.6); MONO % 8.6 % (1.7-9.3); PLATELET COUNT 154 K/mm3 (130-400); RED BLOOD COUNT 3.64 M/mm3 (4.10-5.30); REDCELL DISTRIBUTION WIDTH-CV 12.4 % (11.5-14.5)
[2021-11-19 07:58] LABS: CREATININE, serum 1.14 mg/dL (0.57-1.11); POTASSIUM 4.1 mmol/L (3.5-4.5)
--- NOTE | 2021-11-19 09:51 | NUR ---
CALLED AND LEFT A MESSAGE FRO DR. GILES RE; CONSULT FOR 356
--- NOTE | 2021-11-19 12:35 | NUR ---
SW met with patient to complete intake. Patient states that she lives alone in [place] next of kin is guardian/POA Mehran Rose [phone]. Patient provides that she uses a walker and a cane, is independent with ADL's. Patient states that she was previously referred to [facility] home health, but did not hear back from them prior to coming to the hospital. SW informed the case management team will assist in home health referral if needed upon DC. PCP is Dr. Raza and patient states pharmacy is [facility]. Patient plans to return to her home in [place] upon DC. SW will continue to follow. DC plan: home/lives alone
--- NOTE | 2021-11-19 14:41 | NUR ---
CALLED DR GOINS AND DR GILES TO INFORM THEM THE PT DOES NOT WANT TO DO THE PROCEDURE AND WANTS TO LEAVE AND GO HOME, DR GOINS SAID IF SHE WANTS TO LEAVE AMA SHE IS WELCOMED TO LEAVE
--- NOTE | 2021-11-19 15:11 | NUR ---
CALLED PTS SON CROWKASHIF TO INFORM HIM PT IS WANTING TO LEAVE AMA, LEFT MESSAGE
--- NOTE | 2021-11-19 20:00 | NUR ---
Up in chair, confused about surroundings at times, states she is waiting for her sone to come pick her up and take her home- talked with patient about staying the night and talking with the doctors in the morning-- tele on, bed back to bed with a warm blaanket, bed alarm on, States is refusing the pacemaker tomorrow- {cardiology and hospitalist aware} states needs to go home first and think this through first--
[2021-11-20] VITALS (11 sets, daily range): BP systolic 121–165; BP diastolic 33–63; PULSE 50–117; TEMP 97.5–98.4
--- NOTE | 2021-11-20 01:00 | NUR ---
Refused to have vitals taken at this time- also refused SQ heparin injection to abd-- states she doesnt know what is going on and why we are all bothering her- tried to reorient, did start kicking the nurse aide--will just let her go back to sleep- bed alarm on. Called oumou MENESES and informed of her refusing vitals and heparin and that I was waiting for this B/P to given apresoline if needed- since she was agiatated earlier when B/P was high- oumou states to let her sleep and see if we can get some vitals in a few hours--
--- NOTE | 2021-11-20 05:56 | NUR ---
Has been resting-- was able to get another set of vitals-- B/P stable 154/53, still wondering why there is so much commotion because she is in "her bed" - reoriented that she is in the hospital-- Up to BSC 3 times after IV lasix was given-- had very large amounts of urine each time,, one time did not make it to the commode-voided all over the floor before we could sit her on the commode.
--- NOTE | 2021-11-20 08:00 | NUR ---
Patient laying in bed, A&Ox4. VSS. IV CDI. Denies pain and discomfort. NPO for a procedure, but patient is not sure if she will have the procedure. Doctors aware. Call light within reach. Bed alarm on
[2021-11-20 09:29] LABS: BASO % 0.5 % (0.0-2.0); EOS # 0.1 K/mm3 (0.0-0.7); GRAN # 2.4 K/mm3 (1.4-6.5); GRAN % 59.3 % (42.2-75.2); HEMOGLOBIN 11.1 g/dl (12.5-16.0); LYMPH # 1.2 K/mm3 (1.2-3.4); LYMPH % 29.4 % (20.0-51.0); MEAN CELL VOLUME 88 fl (80.0-100.0); MEAN CORPUSCULAR HEMOGLOBIN 29 pg (27-31); MEAN CORPUSCULAR HGB CONC 34 g/dl (33.0-37.0); MEAN PLATELET VOLUME 10.4 fl (7.4-10.4); MONO # 0.3 K/mm3 (0.1-0.6); MONO % 7.5 % (1.7-9.3); PLATELET COUNT 200 K/mm3 (130-400); RED BLOOD COUNT 3.77 M/mm3 (4.10-5.30); REDCELL DISTRIBUTION WIDTH-CV 12.5 % (11.5-14.5)
[2021-11-20 09:45] LABS: CALCIUM 8.2 mg/dL (8.4-10.2); CREATININE, serum 1.21 mg/dL (0.57-1.11); POTASSIUM 3.7 mmol/L (3.5-4.5)
--- NOTE | 2021-11-20 09:58 | NUR ---
Initial visit; Patient confused and cross at first stating she just woke up. Care Trainer stated she would come back later but offered God's blessings to Cecille and wished her well.
[2021-11-20 10:09] LABS: INR 0.9 (0.8-3.0); PROTHROMBIN TIME 10.2 SECONDS (9.7-12.8)
--- NOTE | 2021-11-20 11:54 | NUR ---
MC met with patient and patient's son at bedside to discuss discharge plan. Patient would like to return home. She has been established with [facility] in the past and would like to be reestablished with them.
--- NOTE | 2021-11-20 12:41 | NUR ---
See merge for all all medication, assessment, intervention, and vital sign times.
--- NOTE | 2021-11-20 14:13 | NUR ---
Patient to room 356 from the laboratory cureman. A&Ox3. VSS, post op VS monitored. IV CDI, fluids by gravity. Denies pain and discomfort. LF arm in sling. Nurse instructed the patient not to raise left arm above the head. Left incision site CDI, ice applied. Call light within reach. Bed alarm on
--- NOTE | 2021-11-20 18:12 | NUR ---
Patient assisted to the recliner. A&Ox3. VSS. IV CDI. Incision left upper chest CDI, no hematoma noted. Ice on chest. Denies pain and discomfort. Call light within reach. Chair alarm on
--- NOTE | 2021-11-20 21:47 | NUR ---
PT REFUSING TO TAKE ANY SCHEDULED/ORDERED PO MEDICATIONS. PT STATES "NOPE. I AM DONE. I TAKE ALL OF MY MEDICATIONS AT 6 P.M.". I EDUCATED AND THEN RE-EDUCATED PT MULTIPLE TIMES ON MEDICATION PURPOSES AND IMPORTANCE OF TAKING PRESCRIBED MEDICATIONS. PT CONTINUES TO CLOSE HER EYES AND IGNORE ME. PT THEN STATES "WELL THEN THAT'S YOUR PROBLEM" AND CONTINUES TO REFUSE ALL PO MEDICATIONS. PT DID ALLOW ME TO ADMINISTER ORDERED IV MEDICATIONS (LASIX AND ANTIBX) WELL ORDERED INSULINS AND SUB-Q HEPARIN. PT WAS RE-EDUCATED ONE FINAL TIME AND CONTINUED TO REFUSE ALL PO MEDICATIONS. GIDEON YOUSIF WAS NOTIFIED. NO OTHER CHANGES AT THIS TIME.
--- NOTE | 2021-11-20 23:29 | NUR ---
PT HAS NOW REQUESTED TO TAKE "SOME" OF HER ORDERED 2100 PO MEDICATIONS. PT HAD REQUESTED EARLIER IN THE EVENING IBUPROFEN FOR PAIN/TENDERNESS AT THE PACEMAKER SITE, THEN PT REFUSED TO TAKE THE NEWLY ORDERED MEDICATION THAT SHE REQUESTED AT 2100. PT NOTIFIED THE BACK WINDER THAT SHE WOULD NOW LIKE TO TAKE HER IBUPROFEN AND "MAY WELL" TAKE THE OTHER ORDERED MEDICATIONS. PO MEDICATIONS ADMINISTERED FOR THE 2328 TIME WERE CHANGED FROM "NOT GIVEN" TO "GIVEN". PT APPEARS TO BE IN A BETTER MOOD AT THIS TIME AND HAS BECOME MORE COOPERATIVE. NO OTHER CHANGES AT THIS TIME.
--- NOTE | 2021-11-21 03:44 | NUR ---
PT ALERT AND ORIENTED. REPORTS PAIN AT THE LEFT CHEST PACEMAKER SITE. PACEMAKER SITE APPEARS C/D/I. NO HEMATOMA/BLEEDING/DRAINAGE/REDNESS NOTED AT SITE. ARM IS IN SLING. ICE APPLIED. PT REQUESTED IBUPROFEN FOR PAIN. NOTIFIED PROVIDER AND IBUPROFEN WAS OFFERED TO PT WHO INITIALLY REFUSED IT AT 2147 WITH OTHER PO MEDS (SEE PREVIOUS NOTE), BUT REQUESTED TO TAKE IT LATER ON WITH ORDERED PO MEDS. PT DENIES NAUSEA/SOB/DIZZINESS. PT CONTINENT/INCONTINENT. PT TOLERATING PO. PT IS FORGETFUL AND REPITIVE, BUT IS ALERT AND ORIENTED X4. SHIFT ASSESSMENT PERFORMED. MEDICATIONS ADMINISTERED PER ORDERS AND EDUCATION PROVIDED. VS STABLE. ON ROOM AIR. SHIFT ASSESSMENT PERFORMED. MEDICATIONS ADMINISTERED AND EDUCATION PROVIDED. PT HAS REDNESS/EDEMA IN THE LLE. NO WEEPING NOTED. PO AND IV ANTIBX CONTINUED PER ORDERS. BED LOW AND LOCKED, CALL LOVE WITHIN REACH. NO NEW CONCERNS AT THIS TIME.
[2021-11-21 04:48] VITALS: BP 137/52; PULSE 63; TEMP 97.6
--- NOTE | 2021-11-21 05:53 | NUR ---
NO ADVERSE EVENTS OVERNIGHT. PT ALERT AND ORIENTED. FORGETFUL. UP TO VOID OVERNIGHT. VS STABLE. ON ROOM AIR. PT REQYESTED HER SYNTHROID BE GIVEN AT 0400 EXACTLY THIS MORNING AND STATED TO ME "IT IS THE LAW AND I CANNOT TAKE ANYTHING ELSE TO EAT OR DRINK WITHIN 30 MINUTES". FALL PRECAUTIONS IN PLACE. ACID PUMP OPERATOR ON. PACEMAKER SITE C/D/I. ARM IN SLING. ICE APPLIED. BED LOW AND LOCKED, CALL LOVE WITHIN REACH. NO OTHER CONCERNS AT THIS TIME.
--- NOTE | 2021-11-21 06:45 | NUR ---
appears to be dozing, bedside shift report received from SALLY Guzman
[2021-11-21 08:00] VITALS: BP 169/55; PULSE 60; TEMP 98.2
--- NOTE | 2021-11-21 08:50 | NUR ---
sitting up in chair and ready for breakfast, am meds given, she is c/o pain to left arm and chest area at pacemaker site, was unhappy when first entered room but quieted and apologized before left the room
--- NOTE | 2021-11-21 09:46 | NUR ---
Dr Willard in to see patient
--- NOTE | 2021-11-21 10:06 | NUR ---
medicated with ibuprofen 400mg for c/os discomfort at pacemaker site, physical therapy in to work with pateint
--- NOTE | 2021-11-21 11:22 | NUR ---
resting in bed with lights off, denies needs
--- NOTE | 2021-11-21 11:31 | NUR ---
full assessment completed, see interventions for further info
--- NOTE | 2021-11-21 11:50 | NUR ---
Dr Quezada and care team in to see patient
[2021-11-21 12:00] VITALS: BP 154/58; PULSE 59; TEMP 97.4
--- NOTE | 2021-11-21 12:45 | NUR ---
appears to be sleeping, refused vital signs and blood sugar because she wanted to sleep
--- NOTE | 2021-11-21 14:13 | NUR ---
appears to be sleeping, in bed with lights off, eyes closed, resp quiet and easy
--- NOTE | 2021-11-21 14:32 | NUR ---
awake now and needs up to bathroom, assisted into bathroom with use of walker, encouraged to use left hand, she stated she wasn't supposed to raise it, educated her not to raise above her head but could use it on the walker, then she started to do this, voided and then back to bed
--- NOTE | 2021-11-21 14:47 | NUR ---
Maria Elena MENESES notifies this [facility] that hospitalist and medical treatment team are now recommending SNF placement. [facility] notes patient payor is [employer], and a pre-auth for SNF placement must be approved. [facility] notifies [facility]AVALA and Maria Elena MENESES. [facility] faxed clinical packet to [facility] for authorization. [facility] to meet with patient to discuss SNF placement options and obtain patient preferences. *Discharge plan: SNF placement*
--- NOTE | 2021-11-21 15:37 | NUR ---
appears to be sleeping, in bed with eyes closed, resp quiet and easy
[2021-11-21 16:00] VITALS: BP 146/58; PULSE 117; TEMP 97.9
--- NOTE | 2021-11-21 17:00 | NUR ---
sitting up in recliner waiting for supper
--- NOTE | 2021-11-21 18:50 | NUR ---
bedside shift report given to SALLY Guzman
[2021-11-21 20:28] VITALS: BP 132/57; PULSE 61; TEMP 98
--- NOTE | 2021-11-22 01:10 | NUR ---
Pt alert and oriented. Emotionally labile. Pt becomes agitated with staff easily, but when she is given what she needs she becomes more pleasant. Pt has been OOB to bathroom many times this evening and states she is constipated. She continued to report "pain in my rectum" and attempted multiple times to stick her finger into her rectum" Pt was educated to not stick her finger into her rectum to disimpact herself to prevent injuring herself. Despite education, pt continued to attempt to do this. Pt became irritated and rude with staff when educated to not disimpact herself. I notified the provider and prn colace and miralax were ordered. I notified the pt of the two medications and she told me "you are not listening! No one understands. No one wants to listen. That will fix it later!". I attempted to educate and calm the pt and asked what I could do to help. Pt told me "I want you to look at my rectum". I assessed the pt's rectum and noticed a protruding large mass of brown, marco a consistency, hard stool at the rectum. I was able to remove some of the stool that was at the edge of the rectum with a gloved finger and lubrication. Pt stated she was unable to push any of it out. After removing the large amount of stool protruding out I noted that the remainder of the stool impacted was hard and went further back into the rectum. I did not attempt to remove any more stool from the pt's rectum. Provider was notified and a suppository was ordered to give to the pt when she was awake next. Pt did report relief and was in a better mood when the protruding portion of the stool was removed, but still reported feeling more stool "stuck in my rectum". Pt was also given ordered prn colace with medications and refused miralax. Pt did take all of her ordered PO medications for me this evening and did not refuse. VS stable. On room air. LLE is red/warm with 1+ edema. Pt denies pain/tenderness at site. Shift assessment performed. Medications administered per orders and education provided. Pt had difficulty ambulating to and from the BR this with assistance evening. Pt stated she felt "weak and dizzy". Pt was sat down by 2 of the staff and reported relief once sitting. Pt states she in incontinent at home and "lays down towels to dribble on". Pt frequently reports "I take too many damn medications. They need to cut them in half!". Pt appears to have difficutly administering medications at home independently. Pt has also been educated on how to order breakfast or food in the morning, but pt refuses to call and order her food in the morning and states she does not know how to do it, despite frequent education. Fall precautions in place. Telemetry on. Bed low and locked, call negrete within reach. No other concerns at this time.
[2021-11-22 04:03] VITALS: BP 131/58; PULSE 60; TEMP 97.5
--- NOTE | 2021-11-22 06:09 | NUR ---
No adverse events overnight. Pt alert and oriented, continues to be emotionally labile. Suppository administered to pt this morning per orders. Pt did have a small amount of incontinent soft stool noted between her legs and on the latoya this morning prior to suppository placement. Pt has not reported anymore rectal pain this morning. VS stable. On room air. Pt took synthroid at 0400 this per her request. Tolerating PO. Up to void overnight. Fall precautions in place, telemetry on. Bed low and locked, call negrete within reach. No other concerns at this time.
[2021-11-22 06:43] LABS: CALCIUM 8.6 mg/dL (8.4-10.2); CREATININE, serum 1.26 mg/dL (0.57-1.11); POTASSIUM 3.5 mmol/L (3.5-4.5)
[2021-11-22 07:02] LABS: BASO % 0.2 % (0.0-2.0); EOS % 0.4 % (0.0-4.0); GRAN # 6.2 K/mm3 (1.4-6.5); GRAN % 77.2 % (42.2-75.2); LYMPH # 1.1 K/mm3 (1.2-3.4); LYMPH % 13.9 % (20.0-51.0); MEAN CELL VOLUME 87 fl (80.0-100.0); MEAN CORPUSCULAR HEMOGLOBIN 29 pg (27-31); MEAN CORPUSCULAR HGB CONC 34 g/dl (33.0-37.0); MEAN PLATELET VOLUME 10.6 fl (7.4-10.4); MONO # 0.6 K/mm3 (0.1-0.6); MONO % 7.9 % (1.7-9.3); PLATELET COUNT 208 K/mm3 (130-400); REDCELL DISTRIBUTION WIDTH-CV 12.4 % (11.5-14.5)
[2021-11-22 07:03] LABS: HEMATOCRIT 35.6 % (37.0-47.0)
[2021-11-22 07:55] VITALS: BP 143/57; PULSE 60; TEMP 98
--- NOTE | 2021-11-22 11:14 | NUR ---
Patient resting in bed, refuses getting her medications stating "just go away".
--- NOTE | 2021-11-22 14:53 | NUR ---
Operating Room Technologist faxed referrals to the two, local facilities that contract with [facility]: [facility] and [facility]. Charlene at [facility] reviewed referral and advised they cannot accept. SW contacted [facility] and they requested clinicals be re-faxed. MC faxed and then contacted [facility] and confirmed they were received. MC then received a phone call from [facility] advising that they are going to begin reviewing case. SW updated [facility] on referrals.
[2021-11-22 16:00] VITALS: BP 128/77; PULSE 98; TEMP 98.5
--- NOTE | 2021-11-22 19:11 | NUR ---
Patient has been stable along the day. She has been refusing taking medications and some vital signs. She has been eating well. Report was given to night RN.
--- NOTE | 2021-11-22 23:15 | NUR ---
Pt called out and skilled nursing facility counselor went in to check on the pt. Pt told the skilled nursing facility counselor "I want to talk to my nurse". The skilled nursing facility counselor reported to me that she asked the pt "What would you like me to tell your nurse that you need from her". Pt reportedly got irritable with the skilled nursing facility counselor and refused to tell her what she had wanted. I went in to visit with the pt. Pt was calm and pleasant with me. When I asked the pt if there was anything I could do for her she stated to me "that woman that was just in here is a pain in the ass!". Pt had also refused VS at 1999. The pt discussed with me that she spoke with her friend who told her to "suck it up and do the [facility]". Pt verbalized to me multiple times after that that "I just want to go home. But I need to just go to the nursing facility and learn more about this pacer". Pt seems to be undecided whether she would like to go home vs a SNF. Pt continues to be emotionally labile with staff. At times pt will be calm and pleasant and allow for VS and medications, but at other times the pt becomes quite irritated with staff and refuses everything. I assisted the pt to bed. No other changes at this time.
--- NOTE | 2021-11-23 00:16 | NUR ---
Pt alert and oriented. Emotionally labile. At times she is calm and allows for VS/medication administration and at other times she refuses everything. Pt was pleasant to me this evening and took all of her medications for me. Pt did refuse VS for the nursing teacher at 2000 and again at 0000. She stated to the nursing teacher "I just had my blood pressure taken!". Pt reports soreness at the left chest pacemaker site. Site is C/D/I, soft with steri strips in place. Prn ibuprofen administered for pain. Pt denies rectum pain this evening, states she had a BM today. LLE red/cool/edematous. Pt denies pain at the LLE. Pt on room air. Shift assessment performed. Medications administered per orders and education provided. Fall precautions in place. Telemetry on. Bed low and locked, call negrete within reach. No other concerns at this time.
[2021-11-23 04:40] VITALS: BP 149/47; PULSE 57; TEMP 97.7
--- NOTE | 2021-11-23 05:59 | NUR ---
Pt refusing all labs this morning. Lab reported to me that they asked the pt if they could take blood and that the pt yelled "what the hell is this? [facility]? no!". Pt did allow me to take her VS this morning at 0400 and she took her synthroid for me as well as her sinemet. Pt does not report any pain this morning. Pacemaker site C/D/I. Fall precautions in place. doll wigs hackler on. Bed low and locked, call negrete within reach. No other concerns at this time.
[2021-11-23 08:00] VITALS: BP 142/55; PULSE 75; TEMP 97.9
--- NOTE | 2021-11-23 08:02 | NUR ---
SW was contacted by [employer] (callback #[phone]) and was advised they they would likely approve auth once an accepting facility is found. SW received a message from Shyann at [facility] who advised they will have to decline patient as she has an outstanding bill with them and during her previous stay, was not willing to apply for Medicaid as she did not want to give up her apartment and car.
--- NOTE | 2021-11-23 11:34 | NUR ---
VSS, PT A&O X4, FORGETFUL AT TIMES, PT REFUSED MORNING ORAL MEDICATIONS STATING "I DON'T NEED ALL OF THESE", PT EDUCATED ON WHAT EACH MEDICATION WAS AND RATIONALE OF WHY HER PHYSICIAN HAS ORDERED, PT CONTINUED TO REFUSE MEDS, PT DENIES PAIN, CALL LIGHT IN REACH, FALL PRECAUTIONS IN PLACE
[2021-11-23 11:41] VITALS: BP 140/35; PULSE 60; TEMP 97.9
--- NOTE | 2021-11-23 12:10 | NUR ---
Nico ESPINOSA HEAD OF MATHEMATICS NOTIFIED OF PT REFUSING MEDS
--- NOTE | 2021-11-23 16:24 | NUR ---
Patients clinical information sent to : [facility]
[2021-11-23 20:00] VITALS: BP 147/49; PULSE 61; TEMP 97.7
[2021-11-24 00:19] VITALS: BP 170/50; PULSE 61; TEMP 98.4
--- NOTE | 2021-11-24 04:45 | NUR ---
ASSESSMENT COMPLETE FOR EMERGENCY DEPARTMENT NURSE. PT RESTING IN BED WATCHING TV. PT A BIT VERBALLY AGGRESSIVE AT THE BEGINNING OF THE SHIFT AND ANYTIME SHE DIDN'T WANT TO FOLLOW 'S ORDERS OR SHE BELIEVED YOU WEREN'T GOING TO GIVE HER WHAT SHE WANTED, WHEN SHE WANTED IT. PT REFUSE ALL HER NIGHT MEDS AND TOLD ME TO GET THE "F@%# OUT OF HER ROOM BEFORE SHE CALLS THE POLICE." AT 0400HRS, PT CALLED OUT ASKING FOR HER SYNTHROID. I EXPLAINED THAT HER SYNTHROID WAS SCHEDULED FOR 0700HRS. PT STARTED YELLING ABOUT HOW SHE ALWAYS TAKES HER SYNTHROID AT 0400HRS AND THAT IF ANYBODY HAD A TROUBLE WITH THAT, THEY CAN TAKE IT UP WITH [facility]. PT GIVEN HER SYNTHROID AT AROUND 0430HRS. PT REFUSED HER HEPARIN SHOT. PT HAD A HIGH B/P(170/50) AROUND 0020HRS, HOWEVER, PT REFUSED APRESOLINE. PT ALSO REFUSED HER MORNING SINEMET AND LAB DRAW, STATING THE SHOULD HAVE TALKED TO HER ABOUT IT FIRST. I AGAIN, EXPLAINED WHY SHE NEEDED HER MEDS AND LABS. PT STILL REFUSED. PT EXPRESSED NO ADDITIONAL NEEDS AT THIS TIME. FALL PRECAUTIONS IN PLACE. CALL LIGHT WITHIN REACH. CALL LIGHT WITHIN REACH.
[2021-11-24 04:48] VITALS: BP 157/42; PULSE 60; TEMP 98
--- NOTE | 2021-11-24 07:29 | NUR ---
VSS, PT A&O X3 AND FORGETFUL, PT RESTING IN BED, REPORTS THAT SHE DIDN'T SLEEP WELL, DENIES PAIN, FALL PRECAUTIONS IN PLACE, CALL LIGHT IN REACH
--- NOTE | 2021-11-24 15:25 | NUR ---
[facility] is unable to accept this patient. Wanda with [facility] is unable to accept this patient.
[2021-11-24 15:48] VITALS: BP 111/88; PULSE 70; TEMP 99.2
[2021-11-24 19:02] VITALS: BP 98/46; PULSE 67; TEMP 98.5
[2021-11-24 20:35] VITALS: BP 104/44
[2021-11-25 00:50] VITALS: BP 139/46; PULSE 60; TEMP 97.7
[2021-11-25 07:36] VITALS: BP 151/54; PULSE 60; TEMP 97.8
--- NOTE | 2021-11-25 09:32 | NUR ---
PATIENT ORIENTED. STATED SHE CALLED FOR ASSISTANCE "20 MINUTES AGO", HOWEVER SHE DID NOT, SO THEREFOR SHE DECIDED TO GET UP AND PEED ON THE FLOOR. PATIENT IS EXTREMELY UNPLEASANT. SHE STOOD UP FROM THE BED. AND THEN JUST STOOD IN PLACE, EVEN THOUGH A MINUTE AGO SHE ASKED TO GO TO THE CHAIR WHILE WE CHANGE HER BED. SHE STOOD THERE FOR A MINUTE, THEN I ASKED IF SHE WAS OK TO MAKE IT A FEW STEPS TO THE CHAIR. SHE SAID "OF COURSE I AM, I AM NOT AN IDIOT." I SAID " MELVIN, NO ONE SAID THAT OR IMPLIED THAT." SHE SAID "DO NOT TREAT ME THAT WAY."THE PCT AND I CHANGED HER BED, SHE IS CURRENTLY SITTING WITH IN THE CHAIR , CHAIR ALARM ON. BELONGINGS AND CALLLIGHT/PHONE WITH IN REACH.
--- NOTE | 2021-11-25 09:37 | NUR ---
PATIENT STATED SHE IS "GOING TO ," BECAUSE SHE DID NOT GET THE SYNTHROID, THAT SHE REFUSED EARLIER. GAVE PATIENT HER SYNTHROID TABLET REQUESTED. WILL RETURN IN 30 MIN OR SO TO GIVE THE REST.
[2021-11-25 11:46] VITALS: BP 118/45; PULSE 60; TEMP 98
[2021-11-25] MEDS ORDERED: CEPHALEXIN500 M1 PO (12:24)
[2021-11-25] MEDS ORDERED: ASPIRIN E.C. 8181 MG PO (12:25)
[2021-11-25] MEDS ORDERED: LIPITOR 40MG TA40 MG PO (12:25)
--- NOTE | 2021-11-25 14:30 | NUR ---
PATIENT DRESSED, IV DISCONTINUED. DISCHARGE INSTRUCTIONS AND EDUCATION GIVEN TO HER AND HER SON CROW OSBORNE. ALL QUESTIONS ANSWERED. PATIENT TAKEN DOWN VIA WHEELCHAIR TO ER ENTRANCE. PATIENT LEFT IN STABLE CONDITON WITH HER SON.
== END 2021-11-25 14:30 | disposition home or self-care (01) | DRG 243 ==
LOC: COL.ER 20:20 → MEDICAL 21:42
PROVIDERS: Emergency Medicine; Internal Medicine Adult Congenital Heart Disease; Physician Assistant; Student in an Organized Health Care Education/Training Program; ADMIT Student in an Organized Health Care Education/Training Program
PROC: 0JH606Z Insertion of Pacemaker, Dual Chamber into Chest Subcutaneous Tissue and Fascia, Open Approach (ICD-10-PCS; principal; 2021-11-20)
PROC: 02HK3JZ Insertion of Pacemaker Lead into Right Ventricle, Percutaneous Approach (ICD-10-PCS; 2021-11-20)
PROC: 02H63JZ Insertion of Pacemaker Lead into Right Atrium, Percutaneous Approach (ICD-10-PCS; 2021-11-20)
DX: R00.1 Bradycardia, unspecified (principal); L03.116 Cellulitis of left lower limb; N17.9 Acute kidney failure, unspecified; I48.91 Unspecified atrial fibrillation; I12.9 Hypertensive chronic kidney disease with stage 1 through stage 4 chronic kidney disease, or unspecified chronic kidney disease; N18.30 Chronic kidney disease, stage 3 unspecified; G20 Parkinson's disease; I25.2 Old myocardial infarction; E03.9 Hypothyroidism, unspecified; Z66 Do not resuscitate; E05.00 Thyrotoxicosis with diffuse goiter without thyrotoxic crisis or storm; I08.0 Rheumatic disorders of both mitral and aortic valves; I25.10 Atherosclerotic heart disease of native coronary artery without angina pectoris; E11.40 Type 2 diabetes mellitus with diabetic neuropathy, unspecified; E11.65 Type 2 diabetes mellitus with hyperglycemia; F31.9 Bipolar disorder, unspecified; S91.104A Unspecified open wound of right lesser toe(s) without damage to nail, initial encounter; Z20.822 Contact with and (suspected) exposure to COVID-19; F03.90 Unspecified dementia, unspecified severity, without behavioral disturbance, psychotic disturbance, mood disturbance, and anxiety; E78.5 Hyperlipidemia, unspecified; R53.81 Other malaise; Z79.84 Long term (current) use of oral hypoglycemic drugs; Z79.02 Long term (current) use of antithrombotics/antiplatelets; Z95.818 Presence of other cardiac implants and grafts; Z86.73 Personal history of transient ischemic attack (TIA), and cerebral infarction without residual deficits; Z87.891 Personal history of nicotine dependence; Z90.49 Acquired absence of other specified parts of digestive tract; Z91.81 History of falling
CPT/HCPCS: 99222-AI; 99232-AI; C1769; C1785; C1894; C1898; J0360; J0690; J0696; J1644; J1815; J1940; J2250; J3010; J7030

== ENCOUNTER 2021-12-15 14:34 | Emergency (ER) | payer MEDICARE ==
[~2021-12-15] VITALS: Ht 152.4 cm; Wt 80.0 kg
[~2021-12-15 14:34] MED LIST changes: +ASPIRIN E.C. 8181 MG PO; +CEPHALEXIN500 M1 PO; +K-DUR20 MEQ PO; +NEURONTIN400 MG/CAP PO
[2021-12-15 14:38] VITALS: TEMP 98
[2021-12-15 15:06] LABS: BASO % 0.5 % (0.0-2.0); EOS # 0.2 K/mm3 (0.0-0.7); EOS % 4.6 % (0.0-4.0); GRAN # 2.3 K/mm3 (1.4-6.5); GRAN % 56.8 % (42.2-75.2); HEMOGLOBIN 11.4 g/dl (12.5-16.0); LYMPH # 1.2 K/mm3 (1.2-3.4); LYMPH % 30.1 % (20.0-51.0); MEAN CELL VOLUME 88 fl (80.0-100.0); MEAN CORPUSCULAR HEMOGLOBIN 30 pg (27-31); MEAN CORPUSCULAR HGB CONC 34 g/dl (33.0-37.0); MEAN PLATELET VOLUME 10.1 fl (7.4-10.4); MONO # 0.3 K/mm3 (0.1-0.6); MONO % 7.8 % (1.7-9.3); PLATELET COUNT 202 K/mm3 (130-400); RED BLOOD COUNT 3.85 M/mm3 (4.10-5.30)
[2021-12-15 15:10] LABS: INR 0.9 (0.8-3.0); PROTHROMBIN TIME 10.6 SECONDS (9.7-12.8)
[2021-12-15 15:21] LABS: ALBUMIN 3.2 gm/dL (3.4-4.8); ALKALINE PHOSPHATASE 107 U/L (40-150); ANION GAP 9 mmol/L (7-16); AST,SGOT 9 U/L (5-34); BILIRUBIN,TOTAL 0.4 mg/dL (0.2-1.2); BLOOD UREA NITROGEN 28 mg/dL (10-20); C-REACTIVE PROTEIN 0.31 mg/dL (0.00-0.50); CALCIUM 8.7 mg/dL (8.4-10.2); CARBON DIOXIDE 20 mmol/L (23-31); CHLORIDE 108 mmol/L (98-107); CREATININE, serum 1.32 mg/dL (0.57-1.11); GLUCOSE 328 mg/dL (70-99); POTASSIUM 4.8 mmol/L (3.5-4.5); SODIUM 137 mmol/L (136-145); TOTAL PROTEIN 6.1 gm/dL (6.2-8.1)
[2021-12-15 15:23] LABS: ALANINE AMINOTRANSFERASE < 6 U/L (0-55)
[2021-12-15 17:00] VITALS: BP 186/82; PULSE 60
== END 2021-12-15 17:24 | disposition home or self-care (01) ==
LOC: COL.ER 14:34
PROVIDERS: Family Medicine
DX: G45.9 Transient cerebral ischemic attack, unspecified (principal)

== ENCOUNTER 2021-12-23 23:27 | Emergency (ER) | payer MEDICARE ==
[~2021-12-23] VITALS: Ht 152.4 cm; Wt 80.0 kg
[2021-12-23 23:30] VITALS: TEMP 98.3
[2021-12-24 01:29] VITALS: BP 178/90; PULSE 61
== END 2021-12-24 01:29 | disposition home or self-care (01) ==
LOC: COL.ER 23:27
DX: S09.90XA Unspecified injury of head, initial encounter (principal); S01.81XA Laceration without foreign body of other part of head, initial encounter; W18.09XA Striking against other object with subsequent fall, initial encounter

== ENCOUNTER 2022-02-20 05:57 | Emergency (ER) | payer MEDICARE ==
[~2022-02-20] VITALS: Ht 152.4 cm; Wt 80.0 kg
[~2022-02-20 05:57] MED LIST changes: +BD ALCOHOL1 SWA MC; +FREESTYLE PREC1 EAC5 MC; +GLUCAGON EMERGEN1 M1 SQ; +GLUCOSE TEST ST1 DEV MC; +INSULIN PEN NE1 EAC1 MC; +LANCETS MC; +LEVEMIR FLEX100 U/ML SQ; +NOVOLOG FLEX100 U/ML SQ
[2022-02-20 06:02] VITALS: TEMP 97.8
[2022-02-20] MEDS ORDERED: PERCOCET 325 MG1 TA2 PO ×2 (10:30)
[2022-02-20] MEDS ORDERED: ROXICODONE 55 MG/TAB PO (10:39)
[2022-02-20] MEDS ORDERED: COLACE 100100 MG/CAP PO (10:40)
[2022-02-20 11:12] VITALS: BP 130/65; PULSE 62
--- NOTE | 2022-02-20 12:48 | NUR ---
SW met with patient in response to consult. Patient lives at home alone and has been having more frequent falls. Patient was discharge at the beginning of with [facility] . Prior to meeting with patient, SW contacted agency who stated that every time they attempted to meet with the patient she refused to let them into her apartment. Patient would then call into the agency and state that she needed their help, but again would not let them into her home or deny calling them. SW met with patient to talk about her options. She is not willing to go to a nursing home facility and verbalizes "i want to go back to my apartment". SW asked if she would be willing to have HH again, and she states that she is open to this. SW facilited phone call between patient and agency where the patient verbalized she would be willing to work with them. Patients clinical information sent to [facility]. Phone call made to patients PCP office (Dr.Ryan Hansen-Wilder Kaiser) and message left.
== END 2022-02-20 11:16 | disposition home or self-care (01) ==
LOC: COL.ER 05:57
DX: S32.048A Other fracture of fourth lumbar vertebra, initial encounter for closed fracture (principal); R10.2 Pelvic and perineal pain; M25.532 Pain in left wrist; M79.89 Other specified soft tissue disorders; W18.30XA Fall on same level, unspecified, initial encounter; W22.8XXA Striking against or struck by other objects, initial encounter; Y92.009 Unspecified place in unspecified non-institutional (private) residence as the place of occurrence of the external cause

== ENCOUNTER 2022-02-21 04:56 | Emergency (ER) | payer MEDICARE ==
[~2022-02-21] VITALS: Ht 152.4 cm; Wt 72.7 kg
[~2022-02-21 04:56] MED LIST changes: +COLACE 100100 MG/CAP PO; +PERCOCET 325 MG1 TA2 PO; +ROXICODONE 55 MG/TAB PO
[2022-02-21 04:58] VITALS: TEMP 97.6
[2022-02-21 08:14] VITALS: BP 151/70; PULSE 68
== END 2022-02-21 08:14 | disposition home or self-care (01) ==
LOC: COL.ER 04:56
DX: S01.01XA Laceration without foreign body of scalp, initial encounter (principal); Z23 Encounter for immunization; W05.0XXA Fall from non-moving wheelchair, initial encounter; Y92.009 Unspecified place in unspecified non-institutional (private) residence as the place of occurrence of the external cause; Y93.01 Activity, walking, marching and hiking

== ENCOUNTER 2022-02-22 18:26 | Emergency (ER) | payer MEDICARE ==
[~2022-02-22] VITALS: Ht 152.4 cm; Wt 72.7 kg
[2022-02-22 18:30] VITALS: TEMP 97.8
[2022-02-22 18:44] LABS: BASO % 0.4 % (0.0-2.0); EOS # 0.2 K/mm3 (0.0-0.7); EOS % 4.5 % (0.0-4.0); GRAN # 2.5 K/mm3 (1.4-6.5); GRAN % 55.8 % (42.2-75.2); LYMPH # 1.4 K/mm3 (1.2-3.4); LYMPH % 31.3 % (20.0-51.0); MEAN CELL VOLUME 86 fl (80.0-100.0); MEAN CORPUSCULAR HEMOGLOBIN 29 pg (27-31); MEAN CORPUSCULAR HGB CONC 34 g/dl (33.0-37.0); MEAN PLATELET VOLUME 10.1 fl (7.4-10.4); MONO # 0.3 K/mm3 (0.1-0.6); MONO % 7.6 % (1.7-9.3); PLATELET COUNT 217 K/mm3 (130-400); RED BLOOD COUNT 4.16 M/mm3 (4.10-5.30); REDCELL DISTRIBUTION WIDTH-CV 13.2 % (11.5-14.5)
[2022-02-22 18:48] LABS: HEMATOCRIT 35.6 % (37.0-47.0)
[2022-02-22 19:03] LABS: ALBUMIN 3.1 gm/dL (3.4-4.8); ALKALINE PHOSPHATASE 158 U/L (40-150); ANION GAP 10 mmol/L (7-16); AST,SGOT 8 U/L (5-34); BILIRUBIN,TOTAL 0.4 mg/dL (0.2-1.2); BLOOD UREA NITROGEN 36 mg/dL (10-20); CALCIUM 8.6 mg/dL (8.4-10.2); CARBON DIOXIDE 24 mmol/L (23-31); CHLORIDE 96 mmol/L (98-107); CREATININE, serum 1.95 mg/dL (0.57-1.11); POTASSIUM 4.2 mmol/L (3.5-4.5); SODIUM 130 mmol/L (136-145); TOTAL PROTEIN 6.8 gm/dL (6.2-8.1)
[2022-02-22 19:05] LABS: ALANINE AMINOTRANSFERASE < 6 U/L (0-55); GLUCOSE 671 mg/dL (70-99)
[2022-02-22 22:00] VITALS: BP 122/61; PULSE 62
== END 2022-02-22 22:00 | disposition home or self-care (01) ==
LOC: COL.ER 18:26
PROVIDERS: Family Medicine
DX: E11.65 Type 2 diabetes mellitus with hyperglycemia (principal)
CPT/HCPCS: J1815; J7120

== ENCOUNTER 2022-05-24 17:37 | Observation (INO) | payer MEDICARE ==
[~2022-05-24] VITALS: Ht 152.4 cm; Wt 69.1 kg
[~2022-05-24 17:37] MED LIST changes: +TYLENOL 500MG500 MG PO; +ULTRAM 50MG TAB50 MG PO
[2022-05-24 18:08] LABS: BASO % 0.4 % (0.0-2.0); EOS # 0.2 K/mm3 (0.0-0.7); EOS % 3.7 % (0.0-4.0); GRAN % 60.7 % (42.2-75.2); HEMOGLOBIN 12.6 g/dl (12.5-16.0); LYMPH # 1.4 K/mm3 (1.2-3.4); LYMPH % 29.3 % (20.0-51.0); MEAN CELL VOLUME 85 fl (80.0-100.0); MEAN CORPUSCULAR HEMOGLOBIN 30 pg (27-31); MEAN CORPUSCULAR HGB CONC 35 g/dl (33.0-37.0); MEAN PLATELET VOLUME 10.1 fl (7.4-10.4); MONO # 0.3 K/mm3 (0.1-0.6); MONO % 5.7 % (1.7-9.3); PLATELET COUNT 213 K/mm3 (130-400); RED BLOOD COUNT 4.18 M/mm3 (4.10-5.30); REDCELL DISTRIBUTION WIDTH-CV 13.6 % (11.5-14.5)
[2022-05-24 18:11] LABS: HEMATOCRIT 35.7 % (37.0-47.0)
[2022-05-24 18:24] LABS: COLLECTION METHOD CLEAN CATCH
[2022-05-24 18:26] LABS: ALBUMIN 3.6 gm/dL (3.4-4.8); ALKALINE PHOSPHATASE 129 U/L (40-150); ANION GAP 10 mmol/L (7-16); AST,SGOT 10 U/L (5-34); BILIRUBIN,TOTAL 0.4 mg/dL (0.2-1.2); BLOOD UREA NITROGEN 29 mg/dL (10-20); CALCIUM 9.1 mg/dL (8.4-10.2); CARBON DIOXIDE 18 mmol/L (23-31); CHLORIDE 108 mmol/L (98-107); CREATININE, serum 1.73 mg/dL (0.57-1.11); GLUCOSE 202 mg/dL (70-99); POTASSIUM 3.8 mmol/L (3.5-4.5); SODIUM 136 mmol/L (136-145); TOTAL PROTEIN 6.9 gm/dL (6.2-8.1)
[2022-05-24 18:28] LABS: ALANINE AMINOTRANSFERASE < 6 U/L (0-55)
[2022-05-24 18:29] LABS: URINE APPEARANCE Cloudy (CLEAR/HAZY); URINE BLOOD Negative (NEGATIVE); URINE COLOR Yellow (YELLOW); URINE GLUCOSE Negative (NEGATIVE); URINE KETONE Negative (NEGATIVE); URINE NITRATE Negative (NEGATIVE); URINE PROTEIN(semi-quant) 1+ (NEGATIVE); URINE UROBILINOGEN 0.2 E.U/dL (0.2-1.0)
[2022-05-24 18:31] LABS: MUCOUS Present (NOT PRESENT); SQUAMOUS EPITHELIAL None Seen /hpf (0-10); URINE BACTERIA Rare /hpf (NONE SEEN); URINE RBC 0-2 /hpf (0-2)
[2022-05-24 21:20] LABS: MAGNESIUM 1.8 mg/dL (1.6-2.6); PHOSPHOROUS 4.7 mg/dL (2.3-4.7)
[2022-05-24 22:15] VITALS: BP 129/97; PULSE 61
[2022-05-24] MEDS ORDERED: TYLENOL 500MG500 MG PO (22:53)
[2022-05-24] MEDS ORDERED: IBU400 MG PO (22:55)
[2022-05-24] MEDS ORDERED: GLUCOTROL 5M5 MG/TAB PO (22:55)
[2022-05-24] MEDS ORDERED: KEPPRA 500MG500 MG PO (22:56)
[2022-05-24] MEDS ORDERED: NEURONTIN400 MG/CAP PO (23:02)
[2022-05-24] MEDS ORDERED: PEPCID 20MG TAB20 MG PO (23:03)
[2022-05-24] MEDS ORDERED: SYNTHROID0.125 MG/T PO (23:04)
[2022-05-24] MEDS ORDERED: ELDEPRYL 5MG5 MG/CAP PO (23:04)
[2022-05-24] MEDS ORDERED: K-DUR20 MEQ PO (23:04)
[2022-05-25 00:29] VITALS: BP 155/45; PULSE 63
[2022-05-25 02:03] VITALS: TEMP 96.9
[2022-05-25] MEDS ORDERED: LASIX 20MG TABL20 MG PO (05:29)
[2022-05-25] MEDS ORDERED: GLUCOPHAGE500 MG/TAB PO (05:43)
[2022-05-25 07:58] VITALS: BP 110/53; PULSE 70; TEMP 97.8
--- NOTE | 2022-05-25 08:00 | NUR ---
PT ADMITTED FROM ED @ 2220 LAST NOC, ALERT, ORIENTED AND COOPERATIVE ON ADMISSION, NS INFUSING @ 75CC/HR, UNABLE TO OBTAIN TEMP, AMY TYLER PLACED TEMP AT 97.0 TEMPORAL AFTERWARDS, PT SLEPT FOR A FEW HOURS AND WOKE UP AT 0400 AGITATED AND COMBATIVE, SEE RICH THOMPSON NOTE AND EMAR FOR TX. SLEEPING NOW.
--- NOTE | 2022-05-25 09:13 | NUR ---
The patient has a history of dementia. MC contacted the patient's son, Mehran Rose (ph#[phone]), to discuss discharge plan. Mehran confirms that the patient resides at [facility] and plan is to return there upon discharge. He then provided that he has a meeting with hospice today. MC inquired if he is wanting to pursue hospice for his mother. Mehran then became short and states that he is in a meeting and to just get with [facility]. He does not want to be the middle man. MC informed him how it is his decision on if the patient goes hospice. Mehran verbalized understanding and expressed his frustrations with getting multiple calls and there not seeming to be any communication. Mehran states that he will contact MC back with his decision after talking to hospice. MC provided him with this MC's phone number. MC then received a phone call from Louis at [facility]. Louis states that [facility] was trying to admit the patient to hospice last night, but then she was admitted. He confirms that he has a meeting with the patient's son at 1130 this morning and will then contact MC back with the plan. He states that if Mehran is wanting to pursue hospice, they would like to get her admitted today. MC attempted to contact and update Chelsy at [facility]. MC left her a voicemail and faxed her updates. MC faxed a referral to [facility]. MC updated the RN and PA. *Discharge plan: Tentatively back to [facility] on hospice*
--- NOTE | 2022-05-25 09:23 | NUR ---
PATIENT STILL MEDICATED AT THIS TIME. UNABLE TO DO MED PASS ROSA COMPLETE FULL ASSESS.
[2022-05-25 10:11] LABS: BASO % 0.4 % (0.0-2.0); EOS # 0.1 K/mm3 (0.0-0.7); EOS % 2.4 % (0.0-4.0); GRAN # 3.3 K/mm3 (1.4-6.5); GRAN % 60.7 % (42.2-75.2); HEMATOCRIT 37.1 % (37.0-47.0); HEMOGLOBIN 12.8 g/dl (12.5-16.0); LYMPH # 1.7 K/mm3 (1.2-3.4); LYMPH % 30.7 % (20.0-51.0); MEAN CELL VOLUME 87 fl (80.0-100.0); MEAN CORPUSCULAR HEMOGLOBIN 30 pg (27-31); MEAN CORPUSCULAR HGB CONC 35 g/dl (33.0-37.0); MEAN PLATELET VOLUME 10.3 fl (7.4-10.4); MONO # 0.3 K/mm3 (0.1-0.6); MONO % 5.6 % (1.7-9.3); PLATELET COUNT 196 K/mm3 (130-400); RED BLOOD COUNT 4.26 M/mm3 (4.10-5.30); REDCELL DISTRIBUTION WIDTH-CV 13.7 % (11.5-14.5)
[2022-05-25 10:17] LABS: CALCIUM 8.2 mg/dL (8.4-10.2); CREATININE, serum 1.31 mg/dL (0.57-1.11); POTASSIUM 3.7 mmol/L (3.5-4.5)
[2022-05-25 12:00] VITALS: BP 140/72; PULSE 65; TEMP 97.6
--- NOTE | 2022-05-25 13:00 | NUR ---
PATIENT CLEANED UP. YELLED AT STAFF WHILE BEING CHANGED. PATIENT KEPT REPEATING "IM TIRED OF THIS!" "IM TIRED OF BEING TORTURED." "JUST LEAVE IT ALONE."
[2022-05-25] MEDS ORDERED: ATIVAN 1MG T1 MG/TAB PO (13:15)
[2022-05-25] MEDS ORDERED: TRANSDERM-0.5 MG/21 TD (13:15)
[2022-05-25] MEDS ORDERED: ROXANOL 20MG20 MG/ML SL (13:15)
[2022-05-25] MEDS ORDERED: SYSTANE 0.4%-0.1 SOL OU (13:15)
--- NOTE | 2022-05-25 13:59 | NUR ---
Louis, at [facility], notified MC that after the meeting with the patient's son. The son/DPOA-HC, Mehran, is wanting to pursue hospice through them and they are able to admit the patient today back at [facility]. MC contacted the patient's son, Mehran, and confirmed the above. He states that he does not need to know the transport time today. MC updated Grace at [facility]. Grace confirms they are good with taking the patient back today on hospice. The patient is to discharge today, 05/25, back to [facility] on hospice from [facility]. Transportation provided by [facility]. No additional needs at this time.
--- NOTE | 2022-05-25 14:30 | NUR ---
PATIENT IV AND TELE DISCONTINUED.
--- NOTE | 2022-05-25 14:44 | NUR ---
PATIENT SEEMS TO BE DISORIENTED. SHE INFORMED ME TO GO PUT HER LINEN IN THE WASH. UPON ENTERING THE ROOM. PATIENTS BLANKETS WERE PULLED OFF , SHE DISCONNECTED HER TELE BOX FROM THE LEADS. PATIENTS IV REMOVED FOR DISCHARGE. SHE SAID SHE WOULD LIKE TO "EAT LUNCH IN [place]."
--- NOTE | 2022-05-25 14:59 | NUR ---
After the RN to RN report, it was decided it would be safer to transport the patient by EMS. SW contacted the patient's son, Mehran, to update. Mehran is agreeable to this and gave MC approval to sign the EMS Consent Form on his behalf. EMS transport was scheduled at 1515. MC notified the patient's RN and Keith of the time.
--- NOTE | 2022-05-25 15:24 | NUR ---
PATIENT TAKEN VIA EMS TO [facility].
== END 2022-05-25 15:28 | disposition hospice, home (50) ==
LOC: COL.ER 17:37 → MEDICAL 21:03
PROVIDERS: Emergency Medicine; Nurse Practitioner Family; ADMIT Hospitalist
DX: G93.40 Encephalopathy, unspecified (principal); R53.1 Weakness; R53.81 Other malaise; G20 Parkinson's disease; F02.80 Dementia in other diseases classified elsewhere, unspecified severity, without behavioral disturbance, psychotic disturbance, mood disturbance, and anxiety; I13.0 Hypertensive heart and chronic kidney disease with heart failure and stage 1 through stage 4 chronic kidney disease, or unspecified chronic kidney disease; I50.20 Unspecified systolic (congestive) heart failure; N18.30 Chronic kidney disease, stage 3 unspecified; E11.22 Type 2 diabetes mellitus with diabetic chronic kidney disease; Z20.822 Contact with and (suspected) exposure to COVID-19; Z66 Do not resuscitate; E86.0 Dehydration; I48.91 Unspecified atrial fibrillation; I48.92 Unspecified atrial flutter; N17.9 Acute kidney failure, unspecified; E03.9 Hypothyroidism, unspecified; E05.00 Thyrotoxicosis with diffuse goiter without thyrotoxic crisis or storm; F31.9 Bipolar disorder, unspecified; Z87.891 Personal history of nicotine dependence; W19.XXXA Unspecified fall, initial encounter; Z91.81 History of falling; Y93.9 Activity, unspecified; Y92.129 Unspecified place in nursing home as the place of occurrence of the external cause; Z86.73 Personal history of transient ischemic attack (TIA), and cerebral infarction without residual deficits; Z79.899 Other long term (current) drug therapy; Z95.0 Presence of cardiac pacemaker; Z79.84 Long term (current) use of oral hypoglycemic drugs; Z79.890 Hormone replacement therapy; Z79.4 Long term (current) use of insulin
CPT/HCPCS: G0378; J1815; J2060; J7030

== ENCOUNTER 2022-08-12 09:53 | Emergency (ER) | payer MEDICARE ==
[~2022-08-12] VITALS: Ht 152.4 cm; Wt 75.5 kg
[~2022-08-12 09:53] MED LIST changes: +ATIVAN 1MG T1 MG/TAB PO; +GLUCOPHAGE500 MG/TAB PO; +IBU400 MG PO; +KEPPRA 500MG500 MG PO; +PEPCID 20MG TAB20 MG PO; +ROXANOL 20MG20 MG/ML SL; +SYSTANE 0.4%-0.1 SOL OU; +TRANSDERM-0.5 MG/21 TD
[2022-08-12 12:37] VITALS: BP 220/93; PULSE 85; TEMP 97.9
== END 2022-08-12 12:40 | disposition home or self-care (01) ==
LOC: COL.ER 09:53
DX: S06.5X0A Traumatic subdural hemorrhage without loss of consciousness, initial encounter (principal); M25.551 Pain in right hip; M25.552 Pain in left hip; Z86.73 Personal history of transient ischemic attack (TIA), and cerebral infarction without residual deficits; W01.10XA Fall on same level from slipping, tripping and stumbling with subsequent striking against unspecified object, initial encounter